=== PATIENT | male | born 1940 | race American Indian/Alaskan Native ===

== ENCOUNTER 2016-12-08 08:39 | Day surgery (SDC) | payer MEDICARE, OTHER ==
[2016-11-29 06:57] VITALS: BMI 21.2
[2016-12-08 09:18] VITALS: O2SAT 100
[2016-12-08] MEDS ORDERED: Propofol 10 mg/ml Inj (20 ML) ONE (11:36)
[2016-12-08] MEDS ORDERED: Midazolam 2 MG/2 ML VIAL ONE (11:36)
[2016-12-08] MEDS ORDERED: Sodium Chloride 0.9% 1,000 ML IV SCH (12:45)
[2016-12-08 13:54] VITALS: BP 176/91; PULSE 62; RESP 18; TEMP 97.5
== END 2016-12-08 14:25 | disposition home or self-care (01) ==
LOC: ENDO 08:39
PROVIDERS: ATTEND Internal Medicine Gastroenterology
DX: K29.50 Unspecified chronic gastritis without bleeding (principal); D64.9 Anemia, unspecified; R63.4 Abnormal weight loss
CPT/HCPCS: 43239; 82948; 88305; 88312; 88342; J2250; J2704; J7040 ×2

== ENCOUNTER 2017-02-16 08:12 | Inpatient (IN) | payer MEDICARE, OTHER ==
--- NOTE | 2017-02-16 08:30 | ED PDOC ---
Arrival/HPI <Sharron Gong - Last Filed: 02/16/17 10:24> <Isaiah Castelan - Last Filed: 02/16/17 18:35> - General Chief Complaint: High Blood Sugar Time Seen by Provider: 02/16/17 08:25 - History of Present Illness Narrative History of Present Illness (Text): 02/16/17 08:50 76 y/o M w/ PMHx of IDDM, HTN, HLD, GERD, and EtOH abuse presents to the ED for high blood glucose. Pt reports visiting his PMD yesterday for worsening generalized weakness. Pt has been chronically fatigued due to XRT for prostate Ca; reports last dose was last week. PMD performed accucheck in office x2, both were unreadable. PMD called this AM to report BG was 711 and instruct pt to come to the ED for evaluation. Pt admits to missing some doses of Metformin and not taking it this AM. Pt reports mild polydipsia, polyuria, and nocturia. Pt denies F/C, N/V, D/C. (Sharron Gong) Past Medical History - Provider Review Nursing Documentation Reviewed: Yes - Infectious Disease Hx of Infectious Diseases: None - Cardiac Hx Hypertension: Yes - Pulmonary Hx Respiratory Disorders: No - Neurological Hx Paralysis: No - HEENT Hx HEENT Disorder: Yes (eyeglasses) - Renal Other/Comment: kidney insuff - Endocrine/Metabolic Hx Diabetes Mellitus Type 2: Yes - Hematological/Oncological Hx Blood Transfusions: No - Integumentary Hx Dermatological Disorder: No - Musculoskeletal/Rheumatological Hx Musculoskeletal Disorders: No - Gastrointestinal Hx Gastrointestinal Disorders: Yes - Genitourinary/Gynecological Hx Genitourinary Disorders: No Hx Reproductive Disorders: No - Psychiatric Hx Emotional Abuse: No Hx Physical Abuse: No Hx Substance Use: No - Surgical History Other/Comment: hernia - Anesthesia Hx Anesthesia Reactions: No Hx Malignant Hyperthermia: No - Suicidal Assessment Feels Threatened In Home Enviroment: No <Sharron Gong - Last Filed: 02/16/17 10:24> Family/Social History - Physician Review Nursing Documentation Reviewed: Yes Family/Social History: No Known Family HX Smoking Status: Former Smoker Hx Alcohol Use: Yes (ETOH;"NOT LATELY") Hx Substance Use: No <Sharron Gong - Last Filed: 02/16/17 10:24> Allergies/Home Meds <Sharron Gong - Last Filed: 02/16/17 10:24> <Isaiah Csatelan - Last Filed: 02/16/17 18:35> Allergies/Adverse Reactions: Allergies No Known Allergies Allergy (Verified 08/21/16 04:16) Home Medications: Home Meds Medication Instructions Recorded Confirmed Gabapentin [Neurontin] 300 mg PO HS 02/16/17 02/16/17 Review of Systems - Physician Review All systems were reviewed & negative as marked: Yes - Review of Systems Constitutional: absent: Fevers Cardiovascular: absent: Edema <Sharron Gong - Last Filed: 02/16/17 10:24> Physical Exam Vital Signs Reviewed: Yes Temperature: Afebrile Blood Pressure: Normal Pulse: Regular Respiratory Rate: Normal Appearance: Positive for: Non-Toxic, Comfortable Pain Distress: None Mental Status: Positive for: Alert and Oriented X 3 - Systems Exam Head: Present: Atraumatic, Normocephalic Pupils: Present: PERRL Extroacular Muscles: Present: EOMI Conjunctiva: Present: Normal Mouth: Present: Moist Mucous Membranes Respiratory/Chest: Present: Clear to Auscultation, Good Air Exchange. No: Respiratory Distress, Accessory Muscle Use Cardiovascular: Present: Regular Rate and Rhythm, Normal S1, S2. No: Murmurs Abdomen: Present: Tenderness (epigastric TTP), Distention (mild), Normal Bowel Sounds. No: Peritoneal Signs Upper Extremity: Present: Normal Inspection Lower Extremity: Present: Normal Inspection. No: Edema Neurological: Present: GCS=15, Speech Normal Skin: Present: Warm, Dry, Normal Color Psychiatric: Present: Alert, Oriented x 3, Normal Insight, Normal Concentration <Sharron Gogn - Last Filed: 02/16/17 10:24> Medical Decision Making - Critical Care Critical Care Minutes: 45 minutes - Lab Interpretations I have reviewed the lab results: Yes Interpretation: Abnormal lab values - RAD Interpretation Part Time Flexible Clerk: Radiologist (CXR: no active disease) - EKG Interpretation Interpreted by ED Physician: Yes (NSR, rate 74, no ST changes) Type: 12 lead EKG <Sharron Gong - Last Filed: 02/16/17 10:24> - Lab Interpretations I have reviewed the lab results: Yes <Isaiah Castelan - Last Filed: 02/16/17 18:35> ED Course and Treatment: 02/16/17 09:07 76 y/o M w/ hyperglycemia - Labs - EKG - CT A/P - reassess and dispo 02/16/17 10:20 BG ~880. Insulin drip started. Pt away at CAT scan. Pt admitted to ICU for Hyperglycemic non-ketoacidosis. (Sharron Gong) Patient seen and examined with resident. Came up with treatment and disposition plan with resident. The patient is a 76 year old male who comes into the emergency department for a high blood glucose level. Additional HPI details as noted by the resident. On physical examination the patient abdomen is mildly distended and tender to palpation at the epigatric region. EKG, Abdomen/Pelvis CT, Labs, and Urinalysis ordered. Patient given IV Fluids and Humulin R. pt with hyperosmolar, non ketoic hyperglyecmia. accepted by dr minor and dr delgado. 02/16/17 16:59 (Isaiah Castelan) - Lab Interpretations Lab Results: 02/16/17 08:40 02/16/17 08:40 Lab Results 02/16/17 10:18: Serum Osmolality 321 H 02/16/17 09:27: Urine Osmolality 475 02/16/17 09:21: Lactate Dehydrogenase 411, Total Creatine Kinase 69, Troponin I < 0.01 02/16/17 08:40: pO2 46, VBG pH 7.17 L*, VBG pCO2 60.0, VBG HCO3 21.9, VBG Total CO2 23.7, VBG O2 Sat (Calc) 81.3 H, VBG Base Excess -7.4 L, VBG Potassium 4.7, Sodium 122.0 L, Chloride 87.0 L, Glucose > 750 H*, Lactate 1.3, FiO2 21.0, Venous Blood Potassium 4.7 02/16/17 08:40: Sodium 119 L*, Chloride 88 L, Potassium 4.6, Carbon Dioxide 21, Anion Gap 15, BUN 48 H, Creatinine 2.2 H, Est GFR ( Amer) 36, Est GFR ( Non-Af Amer) 29, Random Glucose 895 H* D, Calcium 9.1, Total Bilirubin 0.6, AST 65 H, ALT 62 H, Alkaline Phosphatase 100, Total Protein 7.4, Albumin 4.5, Globulin 2.9, Albumin/Globulin Ratio 1.6 02/16/17 08:40: Urine Color Yellow, Urine Appearance Clear, Urine pH 5.5, Ur Specific [place] 1.010, Urine Protein Negative, Urine Glucose (UA) >=1000, Urine Ketones Negative, Urine Blood Trace-intact H, Urine Nitrate Negative, Urine Bilirubin Negative, Urine Urobilinogen 0.2, Ur Leukocyte Esterase Negative , Urine RBC Negative, Urine WBC Negative 02/16/17 08:40: WBC 3.8 L D, RBC 4.15, Hgb 12.8 L, Hct 36.4 L, MCV 87.7, MCH 30.8, MCHC 35.2, RDW 11.8, Plt Count 163, MPV 12.2 H, Gran % 73.2 H, Lymph % ( Auto) 16.1 L, Ida % (Auto) 8.1 H, Eos % (Auto) 2.1, Baso % (Auto) 0.5, Gran # 2.81, Lymph # 0.6 L, Ida # 0.3, Eos # 0.1, Baso # 0.02 02/16/17 08:40: Hemoglobin A1c 13.6 H - RAD Interpretation Radiology Orders: 02/16/17 08:59 CHEST PORTABLE [RAD] Stat 02/16/17 09:25 ABD & PELVIS W/O PO OR IV CONT [CT] Stat - Medication Orders Current Medication Orders: Amlodipine Besylate (Norvasc) 10 mg PO DAILY NAMRATA Dextrose (Dextrose 50% Inj) 0 ml IV STAT PRN; Protocol PRN Reason: Hypoglycemia Protocol Gabapentin (Neurontin) 300 mg PO HS NAMRATA PRN Reason: Protocol Potassium Phosphate 15 mmole/ (Sodium Chloride) 255 mls @ 42.5 mls/hr IVPB ONCE ONE Stop: 02/16/17 20:14 Last Admin: 02/16/17 15:36 Dose: 42.5 mls/hr Dextrose/Sodium Chloride (Dextrose 5%/0.9% Ns 1000 Ml) 1,000 mls @ 250 mls/hr IV .Q4H NAMRATA Metoprolol Succinate (Toprol Xl) 25 mg PO DAILY NAMRATA Morphine Sulfate (Morphine) 1 mg IM Q4H PRN PRN Reason: Pain, moderate (4-7) Discontinued Medications Dextrose (Dextrose 50% Inj) Confirm Administered Dose 50 ml .ROUTE .STK-MED ONE Stop: 02/16/17 13:16 Last Admin: 02/16/17 13:14 Dose: 50 ml Dextrose (Dextrose 50% Inj) 50 ml IVP STAT STA Stop: 02/16/17 13:25 Sodium Chloride (Sodium Chloride 0.9%) 1,000 mls @ 999 mls/hr IV .Q1H1M STA Stop: 02/16/17 10:01 Last Admin: 02/16/17 09:04 Dose: 999 mls/hr Insulin Human Regular 100 (units/ Sodium Chloride) 100 mls @ 6 mls/hr IV .[id number] PRN; Protocol; 6 UNITS/HR PRN Reason: TITRATE PER MD ORDER Last Titration: 02/16/17 13:25 Dose: 0 units/hr, 0 mls/hr Sodium Chloride (Sodium Chloride 0.9%) 1,000 mls @ 999 mls/hr IV .Q1H1M STA Stop: 02/16/17 11:17 Last Admin: 02/16/17 11:45 Dose: 999 mls/hr Dextrose/Sodium Chloride (Dextrose 5%/0.9% Ns 1000 Ml) 1,000 mls @ 150 mls/hr IV .Q6H40M [facility] Last Admin: 02/16/17 13:30 Dose: 150 mls/hr Potassium Chloride (Potassium Chloride 10 Meq/100 Ml) 10 meq in 100 mls @ 100 mls/hr IVPB Q2H NAMRATA Stop: 02/16/17 14:59 Last Admin: 02/16/17 15:37 Dose: 100 mls/hr Insulin Detemir (Levemir) 10 unit SC STAT STA Stop: 02/16/17 15:09 Last Admin: 02/16/17 15:55 Dose: 10 unit Pneumococcal Polyvalent Vaccine (Pneumovax 23 Vaccine) 0.5 ml IM .ONCE ONE Stop: 02/16/17 16:31 <Sharron Gong - Last Filed: 02/16/17 10:24> - PA / COATING MACHINE OPERATOR HELPER / Resident Statement / has reviewed & agrees with the documentation as recorded. / has examined the patient and agrees with the treatment plan. - Scribe Statement The provider has reviewed the documentation as recorded by the Scribe <Isaiah Castelan - Last Filed: 02/16/17 18:35> - Scribe Statement Larry Swanson Provider Scribe Attestation: All medical record entries made by the Scribe were at my direction and personally dictated by me. I have reviewed the chart and agree that the record accurately reflects my personal performance of the history, physical exam, medical decision making, and the department course for this patient. I have also personally directed, reviewed, and agree with the discharge instructions and disposition. (Isaiah Castelan) Disposition/Present on Arrival - Present on Arrival Any Indicators Present on Arrival: No History of DVT/PE: No History of Uncontrolled Diabetes: No Urinary Catheter: No History of Decub. Ulcer: No History Surgical Site Infection Following: None - Disposition Have Diagnosis and Disposition been Completed?: Yes Disposition Time: 10:23 Patient Plan: ICU <Sharron Gong - Last Filed: 02/16/17 10:24> <Isaiah Castelan - Last Filed: 02/16/17 18:35> - Disposition Diagnosis: Hyperglycemic hyperosmolar nonketotic coma Disposition: HOSPITALIZED Patient Problems: Current Active Problems Problem Status Onset Hyperglycemic hyperosmolar nonketotic coma Acute Condition: FAIR
[2017-02-16 08:35] VITALS: BMI 21.5
[2017-02-16 08:57] LABS: PH,URINE 5.5 (4.7-8.0); URINE BILIRUBIN NEGATIVE (NEGATIVE); URINE BLOOD TRACE-INTACT (NEGATIVE); URINE GLUCOSE (UA) >=1000 mg/dL (NEGATIVE); URINE KETONE NEGATIVE (NEGATIVE); URINE LEUKOCYTE ESTERASE NEGATIVE Leu/uL (NEGATIVE); URINE PROTEIN NEGATIVE mg/dL (<30 mg/dL); URINE UROBILINOGEN 0.2 E.U./dL (<1 E.U./dL); VENOUS BLOOD GAS BASE EXCESS -7.4 mmol/L (0.0-2.0)
[2017-02-16 08:59] LABS: URINE APPEARANCE CLEAR (CLEAR); URINE COLOR YELLOW (YELLOW)
[2017-02-16 09:00] LABS: VENOUS BLOOD PH 7.17 (7.32-7.43)
[2017-02-16] MEDS ORDERED: Sodium Chloride 0.9% 1,000 ML IV STA ×3 (09:01→19:28)
[2017-02-16 09:08] LABS: ALB/GLOB RATIO 1.6 (1.1-1.8); BILIRUBIN,TOTAL 0.6 mg/dL (0.2-1.3); CALCIUM 9.1 mg/dL (8.4-10.5); POTASSIUM 4.6 mmol/L (3.6-5.0); TOTAL PROTEIN 7.4 g/dL (5.8-8.3)
[2017-02-16] MEDS ORDERED: Insulin Regular 100 UNITS in Sodium Chloride 0.9% 99 ML IV PRN ×2 (09:24→18:46)
[2017-02-16 09:37] LABS: GRAN % 73.2 % (50.0-68.0); HEMATOCRIT 36.4 % (42.0-52.0); MEAN CELL VOLUME 87.7 fL (80.0-105.0); MEAN CORPUSCULAR HEMOGLOBIN 30.8 pg (25.0-35.0); MEAN CORPUSCULAR HGB CONC 35.2 g/dl (31.0-37.0); MEAN PLATELET VOLUME 12.2 fl (7.0-11.0); PLATELET COUNT 163 10^3/uL (120.0-450.0); RED CELL DISTRIBUTION WIDTH 11.8 % (11.5-14.5); WHITE BLOOD COUNT 3.8 10^3/ul (4.5-11.0)
[2017-02-16 09:38] LABS: ADD MANUAL DIFF? NO; BASO # 0.02 K/mm3 (0.0-2.0); BASO % 0.5 % (0.0-3.0); EOS # 0.1 (0.0-0.7); EOS % 2.1 % (1.5-5.0); GRAN # 2.81 (1.4-6.5); LYMPH # 0.6 (1.2-3.4); LYMPH % 16.1 % (22.0-35.0); MONO # 0.3 (0.1-0.6); MONO % 8.1 % (1.0-6.0)
[2017-02-16 09:45] LABS: URINE RBC NEGATIVE /hpf (0-2); URINE WBC NEGATIVE /hpf (0-6)
--- NOTE | 2017-02-16 09:47 | RAD ---
HISTORY: weakness COMPARISON: 08/13/2016 FINDINGS: LUNGS: No active pulmonary disease. PLEURA: No significant pleural effusion identified, no pneumothorax apparent. CARDIOVASCULAR: Normal. OSSEOUS STRUCTURES: No significant abnormalities. VISUALIZED UPPER ABDOMEN: Normal. OTHER FINDINGS: None. IMPRESSION: No active disease.
[2017-02-16 09:48] LABS: TROPONIN I < 0.01 ng/mL
[2017-02-16 10:35] LABS: ARTERIAL BLOOD GAS PH 7.27 (7.35-7.45)
--- NOTE | 2017-02-16 11:21 | CP.PCM.CON ---
<Anaya ePna - Last Filed: 02/16/17 15:07> History of Present Illness - History of Present Illness History of Present Illness: PGY-[address] Jackson ICU consult: [facility] ICU consult: Hyperglycemic non-ketoacidosis 75M with PMH Prostate Cancer on XRT (last dose last week), alcohol abuse (last drink 1 shot last week), IDDM-2, HTN/HLD, Hx falls, comes in for generalized weakness. PMD checked pt's sugar on ACCU check, unreadable. PMD called pt this AM to report BG 711 and sent pt to ED. Pt skipped metformin and not taking this AM. On physical examination the patient abdomen is mildly distended and tender to palpation at the epigatric region. (+) polydipsia, polyuria. (+) BM this AM Denies F/C, N/V, D/C, dysuria WBC 3.8 Hb 12.8 Hct 36 Na 119, K 4.6, Cl 88, bun 48/2.2 (baseline 1.3) AST/ALT mildly elevated trops negative x 1 BG ~880. EKG: NSR, rate 74, no ST changes CXR: no active disease Abdomen/Pelvis CT: No acute abdomen issue. 6cm L hemorrhagic renal cyst Patient given 2L NS bolus in the ED. Insulin drip Humulin R started in ED. His sugar was in 70s in ED, 1 amp of D50 was given. PMH: Alcohol abuse HTN NIDDM x 6 years Renal cyst, 6cm, L Medication non-compliance PSH: R inguinal repair FH: DM, breast ca, prostate cancer SH: lives with ; retired truck drivers Pt. has a 50+ year of drinking alcohol and will drink as much as a pint a day. Tob: stopped in 1995 Drugs: denies All: NKDA Meds: Metoprolol ER 25 Simvastatin 20 amlodipine 10 Metformin 500 bid Gabapentin PMD: Dr. Rivas Heme/Onc: Dr. Sesay/Janette Urologist: Dr. Wood Past Patient History - Infectious Disease Hx of Infectious Diseases: None - Past Medical History & Family History Past Medical History?: Yes - Past Social History Smoking Status: Former Smoker - CARDIAC Hx Hypertension: Yes - PULMONARY Hx Respiratory Disorders: No - NEUROLOGICAL Hx Paralysis: No - HEENT Hx HEENT Problems: Yes (eyeglasses) - RENAL Other/Comment: kidney insuff - ENDOCRINE/METABOLIC Hx Diabetes Mellitus Type 2: Yes - HEMATOLOGICAL/ONCOLOGICAL Hx Blood Transfusions: No - INTEGUMENTARY Hx Dermatological Problems: No - MUSCULOSKELETAL/RHEUMATOLOGICAL Hx Musculoskeletal Disorders: No - GASTROINTESTINAL Hx Gastrointestinal Disorders: Yes - GENITOURINARY/GYNECOLOGICAL Hx Genitourinary Disorders: No Hx Reproductive Disorders: No - PSYCHIATRIC Hx Emotional Abuse: No Hx Physical Abuse: No Hx Substance Use: No - SURGICAL HISTORY Other/Comment: hernia - ANESTHESIA Hx Anesthesia Reactions: No Hx Malignant Hyperthermia: No Meds Allergies/Adverse Reactions: Allergies Allergy/AdvReac Type Severity Reaction Status Date / Time No Known Allergies Allergy Verified 08/21/16 04:16 - Medications Medications: Current Medications Insulin Human Regular 100 (units/ Sodium Chloride) 100 mls @ 6 mls/hr IV .[id number] PRN; Protocol; 6 UNITS/HR PRN Reason: TITRATE PER MD ORDER Last Admin: 02/16/17 09:43 Dose: 6 mls/hr Physical Exam - Constitutional Appears: No Acute Distress - Head Exam Head Exam: ATRAUMATIC, NORMAL INSPECTION, NORMOCEPHALIC - Eye Exam Eye Exam: EOMI, Normal appearance, PERRL Pupil Exam: NORMAL ACCOMODATION - ENT Exam ENT Exam: Mucous Membranes Dry - Neck Exam Neck exam: Negative for: Meningismus - Respiratory Exam Respiratory Exam: Clear to Auscultation Bilateral. absent: Rales, Rhonchi, Wheezes - Cardiovascular Exam Cardiovascular Exam: +S1, +S2. absent: Systolic Murmur - GI/Abdominal Exam GI & Abdominal Exam: Normal Bowel Sounds, Soft, Tenderness (On deep palpation, tenderness on RUQ, RLQ). absent: Distended, Firm, Guarding - Extremities Exam Extremities exam: Positive for: normal capillary refill, pedal pulses present. Negative for: calf tenderness, tenderness - Back Exam Back exam: absent: CVA tenderness (L), CVA tenderness (R) - Neurological Exam Neurological exam: Alert, CN II-XII Intact, Oriented x3 - Psychiatric Exam Psychiatric exam: Normal Affect, Normal Mood - Skin Skin Exam: Dry, Warm Results - Vital Signs Recent Vital Signs: Last Vital Signs Temp 97.9 F 02/16/17 08:13 Pulse 82 02/16/17 10:33 Resp 16 02/16/17 10:33 BP 133/72 02/16/17 10:33 Pulse Ox 99 02/16/17 10:33 - Labs Result Diagrams: 02/16/17 08:40 02/16/17 12:35 Labs: Laboratory Results - last 24 hr 02/16/17 10:29 pCO2 37 pO2 102.0 H HCO3 17.0 L ABG pH 7.27 L ABG Total CO2 18.1 L ABG O2 Saturation 98.9 H ABG Base Excess -9.2 L ABG Potassium 3.2 L Sodium 131.0 L Chloride 102.0 Glucose 552 H* D Lactate 2.1 FiO2 21.0 Arterial Blood Potassium 3.2 L Assessment & Plan - Assessment and Plan (Free Text) Plan: 75 M admitted to ICU for HHS progressing to DKA requiring insulin gtt. ct showed possible hemorrhagic cyst in L kidney. DELFINO likely prerenal from dehydration more than intrsinc or post-renal from prostate cancer or renal cyst. Metabolic acidosis with gap on ABG need to r/o other ingestion. Hyponatremia corrected to be Neuro No active issue Cardio Trending cardiac enzyme Pulm No active issue GI HHD carb consist DELFINO Strict i/o ct: possible hemorrhagic cyst in kidney Consider renal consult Endo Metabolic acidosis with elevated osmolar gap at 16. Anion Gap closed. BMP, Mg q 4 Accu q1 Heme likely chronic macrocytic/nomocytic anemia. Work up per primary. Infectious lactate NOT elevated 1.3 --> 2.1 WBC < 4 likely sirs response from HHS/DKA Prophylasix SCD, given hemorrhagic cyst S/R/D/w Dr. Jackson - Date & Time Date: 02/16/17 Time: 14:07 <Manuel SUN,Meng H - Last Filed: 02/16/17 16:59> Meds - Medications Medications: Current Medications Dextrose (Dextrose 50% Inj) 0 ml IV STAT PRN; Protocol PRN Reason: Hypoglycemia Protocol Insulin Human Regular 100 (units/ Sodium Chloride) 100 mls @ 6 mls/hr IV .[id number] PRN; Protocol; 6 UNITS/HR PRN Reason: TITRATE PER MD ORDER Last Titration: 02/16/17 13:25 Dose: 0 units/hr, 0 mls/hr Dextrose/Sodium Chloride (Dextrose 5%/0.9% Ns 1000 Ml) 1,000 mls @ 150 mls/hr IV .Q6H40M NAMRATA Last Admin: 02/16/17 13:30 Dose: 150 mls/hr Potassium Phosphate 15 mmole/ (Sodium Chloride) 255 mls @ 42.5 mls/hr IVPB ONCE ONE Stop: 02/16/17 20:14 Last Admin: 02/16/17 15:36 Dose: 42.5 mls/hr Results - Vital Signs Recent Vital Signs: Last Vital Signs Temp 97.1 F L 02/16/17 16:20 Pulse 65 02/16/17 16:20 Resp 17 02/16/17 16:20 BP 131/71 02/16/17 16:20 Pulse Ox 100 02/16/17 16:00 - Labs Result Diagrams: 02/16/17 08:40 02/16/17 15:00 Labs: Laboratory Results - last 24 hr 02/16/17 02/16/17 02/16/17 10:29 11:49 12:19 pCO2 37 pO2 102.0 H HCO3 17.0 L ABG pH 7.27 L ABG Total CO2 18.1 L ABG O2 Saturation 98.9 H ABG Base Excess -9.2 L ABG Potassium 3.2 L VBG pH VBG pCO2 VBG HCO3 VBG Total CO2 VBG O2 Sat (Calc) VBG Base Excess VBG Potassium Sodium 131.0 L Chloride 102.0 Glucose 552 H* D Lactate 2.1 FiO2 21.0 Potassium Carbon Dioxide Anion Gap BUN Creatinine Est GFR ( Amer) Est GFR (Non-Af Amer) POC Glucose (mg/dL) 236 H 316 H Random Glucose Calcium Phosphorus Magnesium Lactate Dehydrogenase Total Creatine Kinase Troponin I Arterial Blood Potassium 3.2 L Venous Blood Potassium Salicylates Urine Opiates Screen Urine Methadone Screen Ur Barbiturates Screen Ur Phencyclidine Scrn Ur Amphetamines Screen U Benzodiazepines Scrn U Oth Cocaine Metabols U Cannabinoids Screen Alcohol, Quantitative 02/16/17 02/16/17 02/16/17 12:35 12:35 12:35 pCO2 pO2 HCO3 ABG pH ABG Total CO2 ABG O2 Saturation ABG Base Excess ABG Potassium VBG pH VBG pCO2 VBG HCO3 VBG Total CO2 VBG O2 Sat (Calc) VBG Base Excess VBG Potassium Sodium 138 Chloride 105 Glucose Lactate FiO2 Potassium 3.4 L Carbon Dioxide 21 Anion Gap 15 BUN 43 H Creatinine 2.0 H Est GFR ( Amer) 40 Est GFR (Non-Af Amer) 33 POC Glucose (mg/dL) Random Glucose 58 L Calcium 9.5 Phosphorus 1.9 L Magnesium 2.5 H Lactate Dehydrogenase Total Creatine Kinase Troponin I Arterial Blood Potassium Venous Blood Potassium Salicylates < 1 L Urine Opiates Screen Urine Methadone Screen Ur Barbiturates Screen Ur Phencyclidine Scrn Ur Amphetamines Screen U Benzodiazepines Scrn U Oth Cocaine Metabols U Cannabinoids Screen Alcohol, Quantitative < 10 02/16/17 02/16/17 02/16/17 12:35 13:01 13:15 pCO2 pO2 HCO3 ABG pH ABG Total CO2 ABG O2 Saturation ABG Base Excess ABG Potassium VBG pH VBG pCO2 VBG HCO3 VBG Total CO2 VBG O2 Sat (Calc) VBG Base Excess VBG Potassium Sodium Chloride Glucose Lactate FiO2 Potassium Carbon Dioxide Anion Gap BUN Creatinine Est GFR ( Amer) Est GFR (Non-Af Amer) POC Glucose (mg/dL) 114 H 75 Random Glucose Calcium Phosphorus Magnesium Lactate Dehydrogenase Total Creatine Kinase Troponin I Arterial Blood Potassium Venous Blood Potassium Salicylates Urine Opiates Screen Negative Urine Methadone Screen Negative Ur Barbiturates Screen Negative Ur Phencyclidine Scrn Negative Ur Amphetamines Screen Negative U Benzodiazepines Scrn Negative U Oth Cocaine Metabols Negative U Cannabinoids Screen Negative Alcohol, Quantitative 02/16/17 02/16/17 02/16/17 13:41 15:00 15:00 pCO2 pO2 23 L HCO3 ABG pH ABG Total CO2 ABG O2 Saturation ABG Base Excess ABG Potassium VBG pH 7.19 L* VBG pCO2 56.0 VBG HCO3 21.4 VBG Total CO2 23.1 VBG O2 Sat (Calc) 46.5 VBG Base Excess -7.2 L VBG Potassium 3.5 L Sodium 137 136.0 Chloride 105 107.0 Glucose 48 L Lactate 3.1 H FiO2 21.0 Potassium 3.6 Carbon Dioxide 21 Anion Gap 15 BUN 41 H Creatinine 1.8 H Est GFR ( Amer) 45 Est GFR (Non-Af Amer) 37 POC Glucose (mg/dL) 222 H Random Glucose 52 L Calcium 9.3 Phosphorus Magnesium Lactate Dehydrogenase 351 Total Creatine Kinase 77 Troponin I < 0.01 Arterial Blood Potassium Venous Blood Potassium 3.5 L Salicylates Urine Opiates Screen Urine Methadone Screen Ur Barbiturates Screen Ur Phencyclidine Scrn Ur Amphetamines Screen U Benzodiazepines Scrn U Oth Cocaine Metabols U Cannabinoids Screen Alcohol, Quantitative 02/16/17 15:02 pCO2 pO2 HCO3 ABG pH ABG Total CO2 ABG O2 Saturation ABG Base Excess ABG Potassium VBG pH VBG pCO2 VBG HCO3 VBG Total CO2 VBG O2 Sat (Calc) VBG Base Excess VBG Potassium Sodium Chloride Glucose Lactate FiO2 Potassium Carbon Dioxide Anion Gap BUN Creatinine Est GFR ( Amer) Est GFR (Non-Af Amer) POC Glucose (mg/dL) 141 H Random Glucose Calcium Phosphorus Magnesium Lactate Dehydrogenase Total Creatine Kinase Troponin I Arterial Blood Potassium Venous Blood Potassium Salicylates Urine Opiates Screen Urine Methadone Screen Ur Barbiturates Screen Ur Phencyclidine Scrn Ur Amphetamines Screen U Benzodiazepines Scrn U Oth Cocaine Metabols U Cannabinoids Screen Alcohol, Quantitative Attending/Attestation - Attestation I have personally seen and examined this patient.: Yes I have fully participated in the care of the patient.: Yes I have reviewed all pertinent clinical information: Yes Notes (Text): 02/16/17 16:56 76 y/o M w/ un controlled DM Pt is un aware of how to take his medication and the appropriate dose. He has not been taking his medication in the past month an drecently had symptoms of frequent urination and thirst along with lethargy. Found to have DKA/ HHNK and started on Insuling drip w/ 3 L IV normal saline given. Currently aao x 3. No other infectious or cardiac complaints. Will need diabetic teaching and HGB AIC to determine insuling SQ needs. Currently will change IV fluids to D% NS at 250 bs. Then add Levemir 10 to start w/ Insulin sliding scale with diabetic meals. Overlap Insulin drip w/ Levemir. Q1 hrs BS and Q4 BMP. Replete K, Phos. ENdocrine consult needed. DVT p PPi cc time 65 min
--- NOTE | 2017-02-16 12:22 | CT ---
PROCEDURE: CT Abdomen and Pelvis without intravenous contrast HISTORY: abd pain, distention COMPARISON: 08/15/2016 CT TECHNIQUE: Without oral or IV contrast. Contrast Dose: Radiation dose: Total exam DLP = 308 mGy-cm. This CT exam was performed using one or more of the following dose reduction techniques: Automated exposure control, adjustment of the mA and/or kV according to patient size, and/or use of iterative reconstruction technique. FINDINGS: LOWER THORAX: Unremarkable. LIVER: Unremarkable. No gross lesion or ductal dilatation. GALLBLADDER AND BILE DUCTS: Unremarkable. PANCREAS: Calcifications are seen in the pancreas as well as atrophy consistent with chronic pancreatitis SPLEEN: Unremarkable. ADRENALS: Unremarkable. No mass. KIDNEYS AND URETERS: There is a hyper dense mass in the left kidney that probably represents a hemorrhagic cyst. This measures 3 cm in with by 2 cm height by 1.6 cm AP. Previously there was a fluid density cyst this location. Follow-up is recommended either repeat CT or ultrasound in 3-6 months. VASCULATURE: Unremarkable. No aortic aneurysm. BOWEL: Unremarkable. No obstruction. No gross mural thickening. APPENDIX: Unremarkable. Normal appendix. PERITONEUM: Unremarkable. No free fluid. No free air. LYMPH NODES: Unremarkable. No enlarged lymph nodes. BLADDER: Unremarkable. REPRODUCTIVE: Unremarkable. BONES: No acute fracture. OTHER FINDINGS: None. IMPRESSION: No acute intra-abdominal findings. Probable hemorrhagic cyst in the left kidney. See comments
[2017-02-16 12:58] LABS: CALCIUM 9.5 mg/dL (8.4-10.5); MAGNESIUM 2.5 mg/dL (1.7-2.2); PHOSPHOROUS 1.9 mg/dL (2.5-4.5); POTASSIUM 3.4 mmol/L (3.6-5.0)
[2017-02-16] MEDS ORDERED: Dextrose 50% SYRINGE Inj (50 ml) ONE (13:15)
[2017-02-16] MEDS ORDERED: Dextrose 5%/0.45% NS 1,000 ML IV SCH (13:15)
[2017-02-16] MEDS ORDERED: Dextrose 50% SYRINGE Inj (50 ml) IV PRN (13:24)
[2017-02-16] MEDS ORDERED: Dextrose 50% SYRINGE Inj (50 ml) IVP STA (13:24)
[2017-02-16] MEDS ORDERED: Dextrose 5%/0.9% NS 1,000 ML IV SCH ×2 (13:30→17:29)
[2017-02-16] MEDS ORDERED: Potassium Phosphate 3 mmol/ml Inj IV ONE (14:00)
[2017-02-16] MEDS ORDERED: Potassium Phosphate 15 MMOLE in Sodium Chloride 0.9% 250 ML IVPB ONE (14:15)
[2017-02-16] MEDS ORDERED: Insulin Detemir 100 units/ml Vial (Levemir) SC STA (15:08)
[2017-02-16 15:21] LABS: VENOUS BLOOD GAS BASE EXCESS -7.2 mmol/L (0.0-2.0)
[2017-02-16 15:27] LABS: VENOUS BLOOD PH 7.19 (7.32-7.43)
[2017-02-16 15:35] LABS: BLOOD UREA NITROGEN 41 mg/dL (7-21); CALCIUM 9.3 mg/dL (8.4-10.5); CARBON DIOXIDE 21 mmol/L (21-33); CHLORIDE 105 mmol/L (98-107); GFR AFRICAN-AMERICAN 45; GLUCOSE,RANDOM 52 mg/dL (70-110); POTASSIUM 3.6 mmol/L (3.6-5.0); SODIUM 137 mmol/L (132-148)
[2017-02-16 15:56] LABS: TROPONIN I < 0.01 ng/mL
[2017-02-16] MEDS ORDERED: Pneumococcal 23-Valent Vaccine IM ONE (16:30)
[2017-02-16] MEDS ORDERED: Potassium Chloride 40 mEq/30 ml LIQ UD PO ONE (18:52)
[2017-02-16] MEDS ORDERED: Sodium Chloride 0.9% 1,000 ML IV SCH (19:30)
[2017-02-16 20:02] LABS: VENOUS BLOOD GAS BASE EXCESS -7.1 mmol/L (0.0-2.0); VENOUS BLOOD PH 7.23 (7.32-7.43)
[2017-02-16] MEDS: Insulin Lispro (humaLOG) LOW Coverage SC SCH (20:10)
[2017-02-16 20:28] LABS: AMYLASE 210 U/L (35-125); BLOOD UREA NITROGEN 34 mg/dL (7-21); CALCIUM 8.3 mg/dL (8.4-10.5); CARBON DIOXIDE 19 mmol/L (21-33); CHLORIDE 105 mmol/L (98-107); GFR AFRICAN-AMERICAN 42; GLUCOSE,RANDOM 280 mg/dL (70-110); LIPASE 159 U/L (23-300); MAGNESIUM 2.1 mg/dL (1.7-2.2); POTASSIUM 4.6 mmol/L (3.6-5.0); SODIUM 134 mmol/L (132-148)
[2017-02-16] MEDS: Sodium Chloride 0.9% 1,000 ML IV SCH (20:28)
[2017-02-16 20:38] LABS: TROPONIN I < 0.01 ng/mL
[2017-02-16 23:48] LABS: VENOUS BLOOD GAS BASE EXCESS -7.2 mmol/L (0.0-2.0); VENOUS BLOOD PH 7.21 (7.32-7.43)
[2017-02-17] MEDS: Insulin Lispro (humaLOG) LOW Coverage SC SCH ×3 (00:18→08:36)
[2017-02-17 01:28] LABS: CALCIUM 8.3 mg/dL (8.4-10.5); POTASSIUM 4.8 mmol/L (3.6-5.0)
[2017-02-17] MEDS: Sodium Chloride 0.9% 1,000 ML IV SCH ×2 (02:00→21:38)
[2017-02-17 05:37] LABS: ADD MANUAL DIFF? NO
[2017-02-17 05:58] LABS: ALB/GLOB RATIO 1.1 (1.1-1.8); BILIRUBIN,TOTAL 0.5 mg/dL (0.2-1.3); CALCIUM 8.2 mg/dL (8.4-10.5); POTASSIUM 4.9 mmol/L (3.6-5.0); TOTAL PROTEIN 5.8 g/dL (5.8-8.3)
[2017-02-17 06:02] LABS: BASO # 0.01 K/mm3 (0.0-2.0); BASO % 0.2 % (0.0-3.0); EOS # 0.1 (0.0-0.7); EOS % 3.3 % (1.5-5.0); GRAN # 3.02 (1.4-6.5); GRAN % 71.3 % (50.0-68.0); HEMATOCRIT 32.2 % (42.0-52.0); LYMPH # 0.8 (1.2-3.4); LYMPH % 19.8 % (22.0-35.0); MEAN CELL VOLUME 86.8 fL (80.0-105.0); MEAN CORPUSCULAR HEMOGLOBIN 30.7 pg (25.0-35.0); MEAN CORPUSCULAR HGB CONC 35.4 g/dl (31.0-37.0); MEAN PLATELET VOLUME 11.1 fl (7.0-11.0); MONO # 0.2 (0.1-0.6); MONO % 5.4 % (1.0-6.0); PLATELET COUNT 143 10^3/uL (120.0-450.0); RED CELL DISTRIBUTION WIDTH 12.1 % (11.5-14.5); WHITE BLOOD COUNT 4.2 10^3/ul (4.5-11.0)
[2017-02-17] MEDS: Morphine 2 mg/ml ISec IM PRN (06:30)
--- NOTE | 2017-02-17 08:12 | CP.CCUPN ---
<Anaya Pena - Last Filed: 02/17/17 11:16> CCU Subjective - Physician Review Subjective (Free Text): 02/17/17 08:10 No acute distress overnight. Denies PRATT, CP, SOB. No BM. CCU Objective - Vital Signs / Intake & Output Intake and Output (Last 8hrs): Intake & Output 02/16/17 02/17/17 02/17/17 22:59 06:59 14:59 Intake Total 1650 4500 Output Total 350 2500 Balance 1300 2000 Weight 146 lb Intake: IV 1250 4000 Right Forearm 1250 4000 Oral 400 500 Output: Urine 350 2500 Urine, Voided 350 2500 Other: Voiding Method Urinal # Voids Urine, Voided 3 # Bowel Movements 1 - Physical Exam Head: Positive for: Atraumatic, Normocephalic Pupils: Positive for: PERRL Extroacular Muscles: Positive for: EOMI Conjunctiva: Positive for: Normal Mouth: Positive for: Moist Mucous Membranes Respiratory/Chest: Positive for: Clear to Auscultation, Good Air Exchange. Negative for: Respiratory Distress, Accessory Muscle Use Cardiovascular: Positive for: Regular Rate and Rhythm, Normal S1, S2. Negative for: Murmurs Abdomen: Positive for: Tenderness (epigastric TTP), Distention (mild), Normal Bowel Sounds. Negative for: Peritoneal Signs Upper Extremity: Positive for: Normal Inspection Lower Extremity: Positive for: Normal Inspection. Negative for: Edema Neurological: Positive for: GCS=15, Speech Normal Skin: Positive for: Warm, Dry, Normal Color Psychiatric: Positive for: Alert, Oriented x 3, Normal Insight, Normal Concentration - Medications Active Medications: Active Medications Generic Name Dose Route Start Last Admin Trade Name Javyq PRN Reason Stop Dose Admin Amlodipine Besylate 10 mg 02/17/17 10:00 Norvasc PO DAILY NAMRATA Dextrose 0 ml 02/16/17 13:24 Dextrose 50% Inj IV STAT PRN Hypoglycemia Protocol Protocol Gabapentin 300 mg 02/16/17 22:00 02/16/17 22:34 Neurontin PO 300 mg HS NAMRATA Administration Protocol Dextrose 1,000 mls @ 100 mls/hr 02/16/17 19:30 02/17/17 06:30 Dextrose 5% In Water 1000 Ml IV 100 mls/hr .Q10H NAMRATA Administration Sodium Chloride 1,000 mls @ 150 mls/hr 02/16/17 19:31 02/17/17 02:00 Sodium Chloride 0.9% IV 150 mls/hr .[id number] NAMRATA Administration Insulin Detemir 10 unit 02/17/17 22:00 Levemir SC HS [facility] Insulin Human Lispro 0 units 02/16/17 20:00 02/17/17 04:00 Humalog Low SC Not Given Q4 [facility] Protocol Metoprolol Succinate 25 mg 02/17/17 10:00 Toprol Xl PO DAILY [facility] Morphine Sulfate 1 mg 02/16/17 17:50 02/17/17 06:30 Morphine IM 1 mg Q4H PRN Administration Pain, moderate (4-7) - Patient Studies Lab Studies: Lab Studies 02/17/17 02/17/17 02/17/17 Range/Units 06:05 05:12 05:00 WBC 4.2 L (4.5-11.0) 10^3/ul RBC 3.71 (3.5-6.1) 10^6/uL Hgb 11.4 L (14.0-18.0) gm/dL Hct 32.2 L (42.0-52.0) % MCV 86.8 (80.0-105.0) fL MCH 30.7 (25.0-35.0) pg MCHC 35.4 (31.0-37.0) g/dl RDW 12.1 (11.5-14.5) % Plt Count 143 (120.0-450.0) 10^3/uL MPV 11.1 H (7.0-11.0) fl Gran % 71.3 H (50.0-68.0) % Lymph % (Auto) 19.8 L (22.0-35.0) % [facility] % (Auto) 5.4 (1.0-6.0) % Eos % (Auto) 3.3 (1.5-5.0) % Baso % (Auto) 0.2 (0.0-3.0) % Gran # 3.02 (1.4-6.5) Lymph # 0.8 L (1.2-3.4) [facility] # 0.2 (0.1-0.6) Eos # 0.1 (0.0-0.7) Baso # 0.01 (0.0-2.0) K/mm3 pCO2 (35-45) mm/Hg pO2 (80-100) mm/Hg HCO3 (21-28) mmol/L ABG pH (7.35-7.45) ABG Total CO2 (22-28) mmol.L ABG O2 Saturation (95-98) % ABG Base Excess (-2.0-3.0) mmol/L ABG Potassium (3.6-5.2) mmol/L VBG pH (7.32-7.43) VBG pCO2 (40-60) VBG HCO3 (21-28) mmol/l VBG Total CO2 (22-28) mmol.L VBG O2 Sat (Calc) (40-65) % VBG Base Excess (0.0-2.0) mmol/L VBG Potassium (3.6-5.2) mmol/L Sodium (132-148) mmol/L Chloride (98-107) mmol/L Glucose (75-110) mg/dl Lactate (0.7-2.1) mmol/L FiO2 % Potassium (3.6-5.0) mmol/L Carbon Dioxide (21-33) mmol/L Anion Gap (10-20) BUN (7-21) mg/dL Creatinine (0.5-1.4) mg/dL Est GFR ( Amer) Est GFR (Non-Af Amer) POC Glucose (mg/dL) 257 H 249 H (65-110) mg/dL Random Glucose (70-110) mg/dL Calcium (8.4-10.5) mg/dL Phosphorus (2.5-4.5) mg/dL Magnesium (1.7-2.2) mg/dL Total Bilirubin (0.2-1.3) mg/dL AST (15-59) U/L ALT (7-56) U/L Alkaline Phosphatase (38-133) U/L Lactate Dehydrogenase (333-699) U/L Total Creatine Kinase (35-230) U/L Troponin I ng/mL Total Protein (5.8-8.3) g/dL Albumin (3.0-4.8) g/dL Globulin gm/dL Albumin/Globulin Ratio (1.1-1.8) Amylase (35-125) U/L Lipase (23-300) U/L Arterial Blood Potassium (3.6-5.2) mmol/L Venous Blood Potassium (3.6-5.2) mmol/L Salicylates (2.0-20.0) mg/dL Urine Opiates Screen (NEGATIVE) Urine Methadone Screen (NEGATIVE) Ur Barbiturates Screen (NEGATIVE) Ur Phencyclidine Scrn (NEGATIVE) Ur Amphetamines Screen (NEGATIVE) U Benzodiazepines Scrn (NEGATIVE) U Oth Cocaine Metabols (NEGATIVE) U Cannabinoids Screen (NEGATIVE) Alcohol, Quantitative (0-10) mg/dL 02/17/17 02/17/17 02/17/17 Range/Units 05:00 04:15 03:09 WBC (4.5-11.0) 10^3/ul RBC (3.5-6.1) 10^6/uL Hgb (14.0-18.0) gm/dL Hct (42.0-52.0) % MCV (80.0-105.0) fL MCH (25.0-35.0) pg MCHC (31.0-37.0) g/dl RDW (11.5-14.5) % Plt Count (120.0-450.0) 10^3/uL MPV (7.0-11.0) fl Gran % (50.0-68.0) % Lymph % (Auto) (22.0-35.0) % [facility] % (Auto) (1.0-6.0) % Eos % (Auto) (1.5-5.0) % Baso % (Auto) (0.0-3.0) % Gran # (1.4-6.5) Lymph # (1.2-3.4) [facility] # (0.1-0.6) Eos # (0.0-0.7) Baso # (0.0-2.0) K/mm3 pCO2 (35-45) mm/Hg pO2 (80-100) mm/Hg HCO3 (21-28) mmol/L ABG pH (7.35-7.45) ABG Total CO2 (22-28) mmol.L ABG O2 Saturation (95-98) % ABG Base Excess (-2.0-3.0) mmol/L ABG Potassium (3.6-5.2) mmol/L VBG pH (7.32-7.43) VBG pCO2 (40-60) VBG HCO3 (21-28) mmol/l VBG Total CO2 (22-28) mmol.L VBG O2 Sat (Calc) (40-65) % VBG Base Excess (0.0-2.0) mmol/L VBG Potassium (3.6-5.2) mmol/L Sodium 136 (132-148) mmol/L Chloride 110 H (98-107) mmol/L Glucose (75-110) mg/dl Lactate (0.7-2.1) mmol/L FiO2 % Potassium 4.9 (3.6-5.0) mmol/L Carbon Dioxide 20 L (21-33) mmol/L Anion Gap 11 (10-20) BUN 25 H (7-21) mg/dL Creatinine 1.6 H (0.5-1.4) mg/dL Est GFR ( Amer) 51 Est GFR (Non-Af Amer) 42 POC Glucose (mg/dL) 225 H 247 H (65-110) mg/dL Random Glucose 231 H (70-110) mg/dL Calcium 8.2 L (8.4-10.5) mg/dL Phosphorus (2.5-4.5) mg/dL Magnesium 2.0 (1.7-2.2) mg/dL Total Bilirubin 0.5 (0.2-1.3) mg/dL AST 32 (15-59) U/L ALT 43 (7-56) U/L Alkaline Phosphatase 56 (38-133) U/L Lactate Dehydrogenase (333-699) U/L Total Creatine Kinase (35-230) U/L Troponin I ng/mL Total Protein 5.8 (5.8-8.3) g/dL Albumin 3.1 (3.0-4.8) g/dL Globulin 2.7 gm/dL Albumin/Globulin Ratio 1.1 (1.1-1.8) Amylase 166 H (35-125) U/L Lipase 76 (23-300) U/L Arterial Blood Potassium (3.6-5.2) mmol/L Venous Blood Potassium (3.6-5.2) mmol/L Salicylates (2.0-20.0) mg/dL Urine Opiates Screen (NEGATIVE) Urine Methadone Screen (NEGATIVE) Ur Barbiturates Screen (NEGATIVE) Ur Phencyclidine Scrn (NEGATIVE) Ur Amphetamines Screen (NEGATIVE) U Benzodiazepines Scrn (NEGATIVE) U Oth Cocaine Metabols (NEGATIVE) U Cannabinoids Screen (NEGATIVE) Alcohol, Quantitative (0-10) mg/dL 02/17/17 02/17/17 02/17/17 Range/Units 02:03 01:05 00:45 WBC (4.5-11.0) 10^3/ul RBC (3.5-6.1) 10^6/uL Hgb (14.0-18.0) gm/dL Hct (42.0-52.0) % MCV (80.0-105.0) fL MCH (25.0-35.0) pg MCHC (31.0-37.0) g/dl RDW (11.5-14.5) % Plt Count (120.0-450.0) 10^3/uL MPV (7.0-11.0) fl Gran % (50.0-68.0) % Lymph % (Auto) (22.0-35.0) % [facility] % (Auto) (1.0-6.0) % Eos % (Auto) (1.5-5.0) % Baso % (Auto) (0.0-3.0) % Gran # (1.4-6.5) Lymph # (1.2-3.4) [facility] # (0.1-0.6) Eos # (0.0-0.7) Baso # (0.0-2.0) K/mm3 pCO2 (35-45) mm/Hg pO2 (80-100) mm/Hg HCO3 (21-28) mmol/L ABG pH (7.35-7.45) ABG Total CO2 (22-28) mmol.L ABG O2 Saturation (95-98) % ABG Base Excess (-2.0-3.0) mmol/L ABG Potassium (3.6-5.2) mmol/L VBG pH (7.32-7.43) VBG pCO2 (40-60) VBG HCO3 (21-28) mmol/l VBG Total CO2 (22-28) mmol.L VBG O2 Sat (Calc) (40-65) % VBG Base Excess (0.0-2.0) mmol/L VBG Potassium (3.6-5.2) mmol/L Sodium 134 (132-148) mmol/L Chloride 109 H (98-107) mmol/L Glucose (75-110) mg/dl Lactate (0.7-2.1) mmol/L FiO2 % Potassium 4.8 (3.6-5.0) mmol/L Carbon Dioxide 20 L (21-33) mmol/L Anion Gap 10 (10-20) BUN 29 H (7-21) mg/dL Creatinine 1.6 H (0.5-1.4) mg/dL Est GFR ( Amer) 51 Est GFR (Non-Af Amer) 42 POC Glucose (mg/dL) 227 H 254 H (65-110) mg/dL Random Glucose 200 H (70-110) mg/dL Calcium 8.3 L (8.4-10.5) mg/dL Phosphorus (2.5-4.5) mg/dL Magnesium 2.0 (1.7-2.2) mg/dL Total Bilirubin (0.2-1.3) mg/dL AST (15-59) U/L ALT (7-56) U/L Alkaline Phosphatase (38-133) U/L Lactate Dehydrogenase (333-699) U/L Total Creatine Kinase (35-230) U/L Troponin I ng/mL Total Protein (5.8-8.3) g/dL Albumin (3.0-4.8) g/dL Globulin gm/dL Albumin/Globulin Ratio (1.1-1.8) Amylase (35-125) U/L Lipase (23-300) U/L Arterial Blood Potassium (3.6-5.2) mmol/L Venous Blood Potassium (3.6-5.2) mmol/L Salicylates (2.0-20.0) mg/dL Urine Opiates Screen (NEGATIVE) Urine Methadone Screen (NEGATIVE) Ur Barbiturates Screen (NEGATIVE) Ur Phencyclidine Scrn (NEGATIVE) Ur Amphetamines Screen (NEGATIVE) U Benzodiazepines Scrn (NEGATIVE) U Oth Cocaine Metabols (NEGATIVE) U Cannabinoids Screen (NEGATIVE) Alcohol, Quantitative (0-10) mg/dL 02/17/17 02/16/17 02/16/17 Range/Units 00:12 23:30 22:57 WBC (4.5-11.0) 10^3/ul RBC (3.5-6.1) 10^6/uL Hgb (14.0-18.0) gm/dL Hct (42.0-52.0) % MCV (80.0-105.0) fL MCH (25.0-35.0) pg MCHC (31.0-37.0) g/dl RDW (11.5-14.5) % Plt Count (120.0-450.0) 10^3/uL MPV (7.0-11.0) fl Gran % (50.0-68.0) % Lymph % (Auto) (22.0-35.0) % [facility] % (Auto) (1.0-6.0) % Eos % (Auto) (1.5-5.0) % Baso % (Auto) (0.0-3.0) % Gran # (1.4-6.5) Lymph # (1.2-3.4) [facility] # (0.1-0.6) Eos # (0.0-0.7) Baso # (0.0-2.0) K/mm3 pCO2 (35-45) mm/Hg pO2 20 L (80-100) mm/Hg HCO3 (21-28) mmol/L ABG pH (7.35-7.45) ABG Total CO2 (22-28) mmol.L ABG O2 Saturation (95-98) % ABG Base Excess (-2.0-3.0) mmol/L ABG Potassium (3.6-5.2) mmol/L VBG pH 7.21 L (7.32-7.43) VBG pCO2 52.0 (40-60) VBG HCO3 20.8 L (21-28) mmol/l VBG Total CO2 22.4 (22-28) mmol.L VBG O2 Sat (Calc) 39.2 L (40-65) % VBG Base Excess -7.2 L (0.0-2.0) mmol/L VBG Potassium (3.6-5.2) mmol/L Sodium (132-148) mmol/L Chloride 110.0 H (98-107) mmol/L Glucose 223 H (75-110) mg/dl Lactate 1.9 (0.7-2.1) mmol/L FiO2 21 % Potassium (3.6-5.0) mmol/L Carbon Dioxide (21-33) mmol/L Anion Gap (10-20) BUN (7-21) mg/dL Creatinine (0.5-1.4) mg/dL Est GFR ( Amer) Est GFR (Non-Af Amer) POC Glucose (mg/dL) 240 H 274 H (65-110) mg/dL Random Glucose (70-110) mg/dL Calcium (8.4-10.5) mg/dL Phosphorus (2.5-4.5) mg/dL Magnesium (1.7-2.2) mg/dL Total Bilirubin (0.2-1.3) mg/dL AST (15-59) U/L ALT (7-56) U/L Alkaline Phosphatase (38-133) U/L Lactate Dehydrogenase (333-699) U/L Total Creatine Kinase (35-230) U/L Troponin I ng/mL Total Protein (5.8-8.3) g/dL Albumin (3.0-4.8) g/dL Globulin gm/dL Albumin/Globulin Ratio (1.1-1.8) Amylase (35-125) U/L Lipase (23-300) U/L Arterial Blood Potassium (3.6-5.2) mmol/L Venous Blood Potassium (3.6-5.2) mmol/L Salicylates (2.0-20.0) mg/dL Urine Opiates Screen (NEGATIVE) Urine Methadone Screen (NEGATIVE) Ur Barbiturates Screen (NEGATIVE) Ur Phencyclidine Scrn (NEGATIVE) Ur Amphetamines Screen (NEGATIVE) U Benzodiazepines Scrn (NEGATIVE) U Oth Cocaine Metabols (NEGATIVE) U Cannabinoids Screen (NEGATIVE) Alcohol, Quantitative (0-10) mg/dL 02/16/17 02/16/17 02/16/17 Range/Units 21:57 21:03 20:00 WBC (4.5-11.0) 10^3/ul RBC (3.5-6.1) 10^6/uL Hgb (14.0-18.0) gm/dL Hct (42.0-52.0) % MCV (80.0-105.0) fL MCH (25.0-35.0) pg MCHC (31.0-37.0) g/dl RDW (11.5-14.5) % Plt Count (120.0-450.0) 10^3/uL MPV (7.0-11.0) fl Gran % (50.0-68.0) % Lymph % (Auto) (22.0-35.0) % [facility] % (Auto) (1.0-6.0) % Eos % (Auto) (1.5-5.0) % Baso % (Auto) (0.0-3.0) % Gran # (1.4-6.5) Lymph # (1.2-3.4) [facility] # (0.1-0.6) Eos # (0.0-0.7) Baso # (0.0-2.0) K/mm3 pCO2 (35-45) mm/Hg pO2 (80-100) mm/Hg HCO3 (21-28) mmol/L ABG pH (7.35-7.45) ABG Total CO2 (22-28) mmol.L ABG O2 Saturation (95-98) % ABG Base Excess (-2.0-3.0) mmol/L ABG Potassium (3.6-5.2) mmol/L VBG pH (7.32-7.43) VBG pCO2 (40-60) VBG HCO3 (21-28) mmol/l VBG Total CO2 (22-28) mmol.L VBG O2 Sat (Calc) (40-65) % VBG Base Excess (0.0-2.0) mmol/L VBG Potassium (3.6-5.2) mmol/L Sodium (132-148) mmol/L Chloride (98-107) mmol/L Glucose (75-110) mg/dl Lactate (0.7-2.1) mmol/L FiO2 % Potassium (3.6-5.0) mmol/L Carbon Dioxide (21-33) mmol/L Anion Gap (10-20) BUN (7-21) mg/dL Creatinine (0.5-1.4) mg/dL Est GFR ( Amer) Est GFR (Non-Af Amer) POC Glucose (mg/dL) 311 H 304 H 312 H (65-110) mg/dL Random Glucose (70-110) mg/dL Calcium (8.4-10.5) mg/dL Phosphorus (2.5-4.5) mg/dL Magnesium (1.7-2.2) mg/dL Total Bilirubin (0.2-1.3) mg/dL AST (15-59) U/L ALT (7-56) U/L Alkaline Phosphatase (38-133) U/L Lactate Dehydrogenase (333-699) U/L Total Creatine Kinase (35-230) U/L Troponin I ng/mL Total Protein (5.8-8.3) g/dL Albumin (3.0-4.8) g/dL Globulin gm/dL Albumin/Globulin Ratio (1.1-1.8) Amylase (35-125) U/L Lipase (23-300) U/L Arterial Blood Potassium (3.6-5.2) mmol/L Venous Blood Potassium (3.6-5.2) mmol/L Salicylates (2.0-20.0) mg/dL Urine Opiates Screen (NEGATIVE) Urine Methadone Screen (NEGATIVE) Ur Barbiturates Screen (NEGATIVE) Ur Phencyclidine Scrn (NEGATIVE) Ur Amphetamines Screen (NEGATIVE) U Benzodiazepines Scrn (NEGATIVE) U Oth Cocaine Metabols (NEGATIVE) U Cannabinoids Screen (NEGATIVE) Alcohol, Quantitative (0-10) mg/dL 02/16/17 02/16/17 02/16/17 Range/Units 19:50 19:30 19:10 WBC (4.5-11.0) 10^3/ul RBC (3.5-6.1) 10^6/uL Hgb (14.0-18.0) gm/dL Hct (42.0-52.0) % MCV (80.0-105.0) fL MCH (25.0-35.0) pg MCHC (31.0-37.0) g/dl RDW (11.5-14.5) % Plt Count (120.0-450.0) 10^3/uL MPV (7.0-11.0) fl Gran % (50.0-68.0) % Lymph % (Auto) (22.0-35.0) % [facility] % (Auto) (1.0-6.0) % Eos % (Auto) (1.5-5.0) % Baso % (Auto) (0.0-3.0) % Gran # (1.4-6.5) Lymph # (1.2-3.4) [facility] # (0.1-0.6) Eos # (0.0-0.7) Baso # (0.0-2.0) K/mm3 pCO2 (35-45) mm/Hg pO2 22 L (80-100) mm/Hg HCO3 (21-28) mmol/L ABG pH (7.35-7.45) ABG Total CO2 (22-28) mmol.L ABG O2 Saturation (95-98) % ABG Base Excess (-2.0-3.0) mmol/L ABG Potassium (3.6-5.2) mmol/L VBG pH 7.23 L (7.32-7.43) VBG pCO2 49.0 (40-60) VBG HCO3 20.5 L (21-28) mmol/l VBG Total CO2 22.0 (22-28) mmol.L VBG O2 Sat (Calc) 42.7 (40-65) % VBG Base Excess -7.1 L (0.0-2.0) mmol/L VBG Potassium 5.6 H (3.6-5.2) mmol/L Sodium 134.0 134 (132-148) mmol/L Chloride 107.0 105 (98-107) mmol/L Glucose 337 H (75-110) mg/dl Lactate 2.8 H (0.7-2.1) mmol/L FiO2 21.0 % Potassium 4.6 (3.6-5.0) mmol/L Carbon Dioxide 19 L (21-33) mmol/L Anion Gap 15 (10-20) BUN 34 H (7-21) mg/dL Creatinine 1.9 H (0.5-1.4) mg/dL Est GFR ( Amer) 42 Est GFR (Non-Af Amer) 35 POC Glucose (mg/dL) 294 H (65-110) mg/dL Random Glucose 280 H (70-110) mg/dL Calcium 8.3 L (8.4-10.5) mg/dL Phosphorus (2.5-4.5) mg/dL Magnesium 2.1 (1.7-2.2) mg/dL Total Bilirubin (0.2-1.3) mg/dL AST (15-59) U/L ALT (7-56) U/L Alkaline Phosphatase (38-133) U/L Lactate Dehydrogenase 344 (333-699) U/L Total Creatine Kinase 87 (35-230) U/L Troponin I < 0.01 ng/mL Total Protein (5.8-8.3) g/dL Albumin (3.0-4.8) g/dL Globulin gm/dL Albumin/Globulin Ratio (1.1-1.8) Amylase 210 H (35-125) U/L Lipase 159 (23-300) U/L Arterial Blood Potassium (3.6-5.2) mmol/L Venous Blood Potassium 5.6 H (3.6-5.2) mmol/L Salicylates (2.0-20.0) mg/dL Urine Opiates Screen (NEGATIVE) Urine Methadone Screen (NEGATIVE) Ur Barbiturates Screen (NEGATIVE) Ur Phencyclidine Scrn (NEGATIVE) Ur Amphetamines Screen (NEGATIVE) U Benzodiazepines Scrn (NEGATIVE) U Oth Cocaine Metabols (NEGATIVE) U Cannabinoids Screen (NEGATIVE) Alcohol, Quantitative (0-10) mg/dL 02/16/17 02/16/17 02/16/17 Range/Units 18:04 15:59 15:02 WBC (4.5-11.0) 10^3/ul RBC (3.5-6.1) 10^6/uL Hgb (14.0-18.0) gm/dL Hct (42.0-52.0) % MCV (80.0-105.0) fL MCH (25.0-35.0) pg MCHC (31.0-37.0) g/dl RDW (11.5-14.5) % Plt Count (120.0-450.0) 10^3/uL MPV (7.0-11.0) fl Gran % (50.0-68.0) % Lymph % (Auto) (22.0-35.0) % [facility] % (Auto) (1.0-6.0) % Eos % (Auto) (1.5-5.0) % Baso % (Auto) (0.0-3.0) % Gran # (1.4-6.5) Lymph # (1.2-3.4) [facility] # (0.1-0.6) Eos # (0.0-0.7) Baso # (0.0-2.0) K/mm3 pCO2 (35-45) mm/Hg pO2 (80-100) mm/Hg HCO3 (21-28) mmol/L ABG pH (7.35-7.45) ABG Total CO2 (22-28) mmol.L ABG O2 Saturation (95-98) % ABG Base Excess (-2.0-3.0) mmol/L ABG Potassium (3.6-5.2) mmol/L VBG pH (7.32-7.43) VBG pCO2 (40-60) VBG HCO3 (21-28) mmol/l VBG Total CO2 (22-28) mmol.L VBG O2 Sat (Calc) (40-65) % VBG Base Excess (0.0-2.0) mmol/L VBG Potassium (3.6-5.2) mmol/L Sodium (132-148) mmol/L Chloride (98-107) mmol/L Glucose (75-110) mg/dl Lactate (0.7-2.1) mmol/L FiO2 % Potassium (3.6-5.0) mmol/L Carbon Dioxide (21-33) mmol/L Anion Gap (10-20) BUN (7-21) mg/dL Creatinine (0.5-1.4) mg/dL Est GFR ( Amer) Est GFR (Non-Af Amer) POC Glucose (mg/dL) 205 H 114 H 141 H (65-110) mg/dL Random Glucose (70-110) mg/dL Calcium (8.4-10.5) mg/dL Phosphorus (2.5-4.5) mg/dL Magnesium (1.7-2.2) mg/dL Total Bilirubin (0.2-1.3) mg/dL AST (15-59) U/L ALT (7-56) U/L Alkaline Phosphatase (38-133) U/L Lactate Dehydrogenase (333-699) U/L Total Creatine Kinase (35-230) U/L Troponin I ng/mL Total Protein (5.8-8.3) g/dL Albumin (3.0-4.8) g/dL Globulin gm/dL Albumin/Globulin Ratio (1.1-1.8) Amylase (35-125) U/L Lipase (23-300) U/L Arterial Blood Potassium (3.6-5.2) mmol/L Venous Blood Potassium (3.6-5.2) mmol/L Salicylates (2.0-20.0) mg/dL Urine Opiates Screen (NEGATIVE) Urine Methadone Screen (NEGATIVE) Ur Barbiturates Screen (NEGATIVE) Ur Phencyclidine Scrn (NEGATIVE) Ur Amphetamines Screen (NEGATIVE) U Benzodiazepines Scrn (NEGATIVE) U Oth Cocaine Metabols (NEGATIVE) U Cannabinoids Screen (NEGATIVE) Alcohol, Quantitative (0-10) mg/dL 02/16/17 02/16/17 02/16/17 Range/Units 15:00 15:00 13:41 WBC (4.5-11.0) 10^3/ul RBC (3.5-6.1) 10^6/uL Hgb (14.0-18.0) gm/dL Hct (42.0-52.0) % MCV (80.0-105.0) fL MCH (25.0-35.0) pg MCHC (31.0-37.0) g/dl RDW (11.5-14.5) % Plt Count (120.0-450.0) 10^3/uL MPV (7.0-11.0) fl Gran % (50.0-68.0) % Lymph % (Auto) (22.0-35.0) % [facility] % (Auto) (1.0-6.0) % Eos % (Auto) (1.5-5.0) % Baso % (Auto) (0.0-3.0) % Gran # (1.4-6.5) Lymph # (1.2-3.4) [facility] # (0.1-0.6) Eos # (0.0-0.7) Baso # (0.0-2.0) K/mm3 pCO2 (35-45) mm/Hg pO2 23 L (80-100) mm/Hg HCO3 (21-28) mmol/L ABG pH (7.35-7.45) ABG Total CO2 (22-28) mmol.L ABG O2 Saturation (95-98) % ABG Base Excess (-2.0-3.0) mmol/L ABG Potassium (3.6-5.2) mmol/L VBG pH 7.19 L* (7.32-7.43) VBG pCO2 56.0 (40-60) VBG HCO3 21.4 (21-28) mmol/l VBG Total CO2 23.1 (22-28) mmol.L VBG O2 Sat (Calc) 46.5 (40-65) % VBG Base Excess -7.2 L (0.0-2.0) mmol/L VBG Potassium 3.5 L (3.6-5.2) mmol/L Sodium 136.0 137 (132-148) mmol/L Chloride 107.0 105 (98-107) mmol/L Glucose 48 L (75-110) mg/dl Lactate 3.1 H (0.7-2.1) mmol/L FiO2 21.0 % Potassium 3.6 (3.6-5.0) mmol/L Carbon Dioxide 21 (21-33) mmol/L Anion Gap 15 (10-20) BUN 41 H (7-21) mg/dL Creatinine 1.8 H (0.5-1.4) mg/dL Est GFR ( Amer) 45 Est GFR (Non-Af Amer) 37 POC Glucose (mg/dL) 222 H (65-110) mg/dL Random Glucose 52 L (70-110) mg/dL Calcium 9.3 (8.4-10.5) mg/dL Phosphorus (2.5-4.5) mg/dL Magnesium (1.7-2.2) mg/dL Total Bilirubin (0.2-1.3) mg/dL AST (15-59) U/L ALT (7-56) U/L Alkaline Phosphatase (38-133) U/L Lactate Dehydrogenase 351 (333-699) U/L Total Creatine Kinase 77 (35-230) U/L Troponin I < 0.01 ng/mL Total Protein (5.8-8.3) g/dL Albumin (3.0-4.8) g/dL Globulin gm/dL Albumin/Globulin Ratio (1.1-1.8) Amylase (35-125) U/L Lipase (23-300) U/L Arterial Blood Potassium (3.6-5.2) mmol/L Venous Blood Potassium 3.5 L (3.6-5.2) mmol/L Salicylates (2.0-20.0) mg/dL Urine Opiates Screen (NEGATIVE) Urine Methadone Screen (NEGATIVE) Ur Barbiturates Screen (NEGATIVE) Ur Phencyclidine Scrn (NEGATIVE) Ur Amphetamines Screen (NEGATIVE) U Benzodiazepines Scrn (NEGATIVE) U Oth Cocaine Metabols (NEGATIVE) U Cannabinoids Screen (NEGATIVE) Alcohol, Quantitative (0-10) mg/dL 02/16/17 02/16/17 02/16/17 Range/Units 13:15 13:01 12:35 WBC (4.5-11.0) 10^3/ul RBC (3.5-6.1) 10^6/uL Hgb (14.0-18.0) gm/dL Hct (42.0-52.0) % MCV (80.0-105.0) fL MCH (25.0-35.0) pg MCHC (31.0-37.0) g/dl RDW (11.5-14.5) % Plt Count (120.0-450.0) 10^3/uL MPV (7.0-11.0) fl Gran % (50.0-68.0) % Lymph % (Auto) (22.0-35.0) % [facility] % (Auto) (1.0-6.0) % Eos % (Auto) (1.5-5.0) % Baso % (Auto) (0.0-3.0) % Gran # (1.4-6.5) Lymph # (1.2-3.4) [facility] # (0.1-0.6) Eos # (0.0-0.7) Baso # (0.0-2.0) K/mm3 pCO2 (35-45) mm/Hg pO2 (80-100) mm/Hg HCO3 (21-28) mmol/L ABG pH (7.35-7.45) ABG Total CO2 (22-28) mmol.L ABG O2 Saturation (95-98) % ABG Base Excess (-2.0-3.0) mmol/L ABG Potassium (3.6-5.2) mmol/L VBG pH (7.32-7.43) VBG pCO2 (40-60) VBG HCO3 (21-28) mmol/l VBG Total CO2 (22-28) mmol.L VBG O2 Sat (Calc) (40-65) % VBG Base Excess (0.0-2.0) mmol/L VBG Potassium (3.6-5.2) mmol/L Sodium (132-148) mmol/L Chloride (98-107) mmol/L Glucose (75-110) mg/dl Lactate (0.7-2.1) mmol/L FiO2 % Potassium (3.6-5.0) mmol/L Carbon Dioxide (21-33) mmol/L Anion Gap (10-20) BUN (7-21) mg/dL Creatinine (0.5-1.4) mg/dL Est GFR ( Amer) Est GFR (Non-Af Amer) POC Glucose (mg/dL) 75 114 H (65-110) mg/dL Random Glucose (70-110) mg/dL Calcium (8.4-10.5) mg/dL Phosphorus (2.5-4.5) mg/dL Magnesium (1.7-2.2) mg/dL Total Bilirubin (0.2-1.3) mg/dL AST (15-59) U/L ALT (7-56) U/L Alkaline Phosphatase (38-133) U/L Lactate Dehydrogenase (333-699) U/L Total Creatine Kinase (35-230) U/L Troponin I ng/mL Total Protein (5.8-8.3) g/dL Albumin (3.0-4.8) g/dL Globulin gm/dL Albumin/Globulin Ratio (1.1-1.8) Amylase (35-125) U/L Lipase (23-300) U/L Arterial Blood Potassium (3.6-5.2) mmol/L Venous Blood Potassium (3.6-5.2) mmol/L Salicylates (2.0-20.0) mg/dL Urine Opiates Screen Negative (NEGATIVE) Urine Methadone Screen Negative (NEGATIVE) Ur Barbiturates Screen Negative (NEGATIVE) Ur Phencyclidine Scrn Negative (NEGATIVE) Ur Amphetamines Screen Negative (NEGATIVE) U Benzodiazepines Scrn Negative (NEGATIVE) U Oth Cocaine Metabols Negative (NEGATIVE) U Cannabinoids Screen Negative (NEGATIVE) Alcohol, Quantitative (0-10) mg/dL 02/16/17 02/16/17 02/16/17 Range/Units 12:35 12:35 12:35 WBC (4.5-11.0) 10^3/ul RBC (3.5-6.1) 10^6/uL Hgb (14.0-18.0) gm/dL Hct (42.0-52.0) % MCV (80.0-105.0) fL MCH (25.0-35.0) pg MCHC (31.0-37.0) g/dl RDW (11.5-14.5) % Plt Count (120.0-450.0) 10^3/uL MPV (7.0-11.0) fl Gran % (50.0-68.0) % Lymph % (Auto) (22.0-35.0) % [facility] % (Auto) (1.0-6.0) % Eos % (Auto) (1.5-5.0) % Baso % (Auto) (0.0-3.0) % Gran # (1.4-6.5) Lymph # (1.2-3.4) [facility] # (0.1-0.6) Eos # (0.0-0.7) Baso # (0.0-2.0) K/mm3 pCO2 (35-45) mm/Hg pO2 (80-100) mm/Hg HCO3 (21-28) mmol/L ABG pH (7.35-7.45) ABG Total CO2 (22-28) mmol.L ABG O2 Saturation (95-98) % ABG Base Excess (-2.0-3.0) mmol/L ABG Potassium (3.6-5.2) mmol/L VBG pH (7.32-7.43) VBG pCO2 (40-60) VBG HCO3 (21-28) mmol/l VBG Total CO2 (22-28) mmol.L VBG O2 Sat (Calc) (40-65) % VBG Base Excess (0.0-2.0) mmol/L VBG Potassium (3.6-5.2) mmol/L Sodium 138 (132-148) mmol/L Chloride 105 (98-107) mmol/L Glucose (75-110) mg/dl Lactate (0.7-2.1) mmol/L FiO2 % Potassium 3.4 L (3.6-5.0) mmol/L Carbon Dioxide 21 (21-33) mmol/L Anion Gap 15 (10-20) BUN 43 H (7-21) mg/dL Creatinine 2.0 H (0.5-1.4) mg/dL Est GFR ( Amer) 40 Est GFR (Non-Af Amer) 33 POC Glucose (mg/dL) (65-110) mg/dL Random Glucose 58 L (70-110) mg/dL Calcium 9.5 (8.4-10.5) mg/dL Phosphorus 1.9 L (2.5-4.5) mg/dL Magnesium 2.5 H (1.7-2.2) mg/dL Total Bilirubin (0.2-1.3) mg/dL AST (15-59) U/L ALT (7-56) U/L Alkaline Phosphatase (38-133) U/L Lactate Dehydrogenase (333-699) U/L Total Creatine Kinase (35-230) U/L Troponin I ng/mL Total Protein (5.8-8.3) g/dL Albumin (3.0-4.8) g/dL Globulin gm/dL Albumin/Globulin Ratio (1.1-1.8) Amylase (35-125) U/L Lipase (23-300) U/L Arterial Blood Potassium (3.6-5.2) mmol/L Venous Blood Potassium (3.6-5.2) mmol/L Salicylates < 1 L (2.0-20.0) mg/dL Urine Opiates Screen (NEGATIVE) Urine Methadone Screen (NEGATIVE) Ur Barbiturates Screen (NEGATIVE) Ur Phencyclidine Scrn (NEGATIVE) Ur Amphetamines Screen (NEGATIVE) U Benzodiazepines Scrn (NEGATIVE) U Oth Cocaine Metabols (NEGATIVE) U Cannabinoids Screen (NEGATIVE) Alcohol, Quantitative < 10 (0-10) mg/dL 02/16/17 02/16/17 02/16/17 Range/Units 12:19 11:49 10:29 WBC (4.5-11.0) 10^3/ul RBC (3.5-6.1) 10^6/uL Hgb (14.0-18.0) gm/dL Hct (42.0-52.0) % MCV (80.0-105.0) fL MCH (25.0-35.0) pg MCHC (31.0-37.0) g/dl RDW (11.5-14.5) % Plt Count (120.0-450.0) 10^3/uL MPV (7.0-11.0) fl Gran % (50.0-68.0) % Lymph % (Auto) (22.0-35.0) % [facility] % (Auto) (1.0-6.0) % Eos % (Auto) (1.5-5.0) % Baso % (Auto) (0.0-3.0) % Gran # (1.4-6.5) Lymph # (1.2-3.4) [facility] # (0.1-0.6) Eos # (0.0-0.7) Baso # (0.0-2.0) K/mm3 pCO2 37 (35-45) mm/Hg pO2 102.0 H (80-100) mm/Hg HCO3 17.0 L (21-28) mmol/L ABG pH 7.27 L (7.35-7.45) ABG Total CO2 18.1 L (22-28) mmol.L ABG O2 Saturation 98.9 H (95-98) % ABG Base Excess -9.2 L (-2.0-3.0) mmol/L ABG Potassium 3.2 L (3.6-5.2) mmol/L VBG pH (7.32-7.43) VBG pCO2 (40-60) VBG HCO3 (21-28) mmol/l VBG Total CO2 (22-28) mmol.L VBG O2 Sat (Calc) (40-65) % VBG Base Excess (0.0-2.0) mmol/L VBG Potassium (3.6-5.2) mmol/L Sodium 131.0 L (132-148) mmol/L Chloride 102.0 (98-107) mmol/L Glucose 552 H* D (75-110) mg/dl Lactate 2.1 (0.7-2.1) mmol/L FiO2 21.0 % Potassium (3.6-5.0) mmol/L Carbon Dioxide (21-33) mmol/L Anion Gap (10-20) BUN (7-21) mg/dL Creatinine (0.5-1.4) mg/dL Est GFR ( Amer) Est GFR (Non-Af Amer) POC Glucose (mg/dL) 316 H 236 H (65-110) mg/dL Random Glucose (70-110) mg/dL Calcium (8.4-10.5) mg/dL Phosphorus (2.5-4.5) mg/dL Magnesium (1.7-2.2) mg/dL Total Bilirubin (0.2-1.3) mg/dL AST (15-59) U/L ALT (7-56) U/L Alkaline Phosphatase (38-133) U/L Lactate Dehydrogenase (333-699) U/L Total Creatine Kinase (35-230) U/L Troponin I ng/mL Total Protein (5.8-8.3) g/dL Albumin (3.0-4.8) g/dL Globulin gm/dL Albumin/Globulin Ratio (1.1-1.8) Amylase (35-125) U/L Lipase (23-300) U/L Arterial Blood Potassium 3.2 L (3.6-5.2) mmol/L Venous Blood Potassium (3.6-5.2) mmol/L Salicylates (2.0-20.0) mg/dL Urine Opiates Screen (NEGATIVE) Urine Methadone Screen (NEGATIVE) Ur Barbiturates Screen (NEGATIVE) Ur Phencyclidine Scrn (NEGATIVE) Ur Amphetamines Screen (NEGATIVE) U Benzodiazepines Scrn (NEGATIVE) U Oth Cocaine Metabols (NEGATIVE) U Cannabinoids Screen (NEGATIVE) Alcohol, Quantitative (0-10) mg/dL Laboratory Results - last 24 hr 02/16/17 02/16/17 02/16/17 10:29 11:49 12:19 WBC RBC Hgb Hct MCV MCH MCHC RDW Plt Count MPV Gran % Lymph % (Auto) [facility] % (Auto) Eos % (Auto) Baso % (Auto) Gran # Lymph # [facility] # Eos # Baso # pCO2 37 pO2 102.0 H HCO3 17.0 L ABG pH 7.27 L ABG Total CO2 18.1 L ABG O2 Saturation 98.9 H ABG Base Excess -9.2 L ABG Potassium 3.2 L VBG pH VBG pCO2 VBG HCO3 VBG Total CO2 VBG O2 Sat (Calc) VBG Base Excess VBG Potassium Sodium 131.0 L Chloride 102.0 Glucose 552 H* D Lactate 2.1 FiO2 21.0 Potassium Carbon Dioxide Anion Gap BUN Creatinine Est GFR ( Amer) Est GFR (Non-Af Amer) POC Glucose (mg/dL) 236 H 316 H Random Glucose Calcium Phosphorus Magnesium Total Bilirubin AST ALT Alkaline Phosphatase Lactate Dehydrogenase Total Creatine Kinase Troponin I Total Protein Albumin Globulin Albumin/Globulin Ratio Amylase Lipase Arterial Blood Potassium 3.2 L Venous Blood Potassium Salicylates Urine Opiates Screen Urine Methadone Screen Ur Barbiturates Screen Ur Phencyclidine Scrn Ur Amphetamines Screen U Benzodiazepines Scrn U Oth Cocaine Metabols U Cannabinoids Screen Alcohol, Quantitative 02/16/17 02/16/17 02/16/17 12:35 12:35 12:35 WBC RBC Hgb Hct MCV MCH MCHC RDW Plt Count MPV Gran % Lymph % (Auto) [facility] % (Auto) Eos % (Auto) Baso % (Auto) Gran # Lymph # [facility] # Eos # Baso # pCO2 pO2 HCO3 ABG pH ABG Total CO2 ABG O2 Saturation ABG Base Excess ABG Potassium VBG pH VBG pCO2 VBG HCO3 VBG Total CO2 VBG O2 Sat (Calc) VBG Base Excess VBG Potassium Sodium 138 Chloride 105 Glucose Lactate FiO2 Potassium 3.4 L Carbon Dioxide 21 Anion Gap 15 BUN 43 H Creatinine 2.0 H Est GFR ( Amer) 40 Est GFR (Non-Af Amer) 33 POC Glucose (mg/dL) Random Glucose 58 L Calcium 9.5 Phosphorus 1.9 L Magnesium 2.5 H Total Bilirubin AST ALT Alkaline Phosphatase Lactate Dehydrogenase Total Creatine Kinase Troponin I Total Protein Albumin Globulin Albumin/Globulin Ratio Amylase Lipase Arterial Blood Potassium Venous Blood Potassium Salicylates < 1 L Urine Opiates Screen Urine Methadone Screen Ur Barbiturates Screen Ur Phencyclidine Scrn Ur Amphetamines Screen U Benzodiazepines Scrn U Oth Cocaine Metabols U Cannabinoids Screen Alcohol, Quantitative < 10 02/16/17 02/16/17 02/16/17 12:35 13:01 13:15 WBC RBC Hgb Hct MCV MCH MCHC RDW Plt Count MPV Gran % Lymph % (Auto) [facility] % (Auto) Eos % (Auto) Baso % (Auto) Gran # Lymph # [facility] # Eos # Baso # pCO2 pO2 HCO3 ABG pH ABG Total CO2 ABG O2 Saturation ABG Base Excess ABG Potassium VBG pH VBG pCO2 VBG HCO3 VBG Total CO2 VBG O2 Sat (Calc) VBG Base Excess VBG Potassium Sodium Chloride Glucose Lactate FiO2 Potassium Carbon Dioxide Anion Gap BUN Creatinine Est GFR ( Amer) Est GFR (Non-Af Amer) POC Glucose (mg/dL) 114 H 75 Random Glucose Calcium Phosphorus Magnesium Total Bilirubin AST ALT Alkaline Phosphatase Lactate Dehydrogenase Total Creatine Kinase Troponin I Total Protein Albumin Globulin Albumin/Globulin Ratio Amylase Lipase Arterial Blood Potassium Venous Blood Potassium Salicylates Urine Opiates Screen Negative Urine Methadone Screen Negative Ur Barbiturates Screen Negative Ur Phencyclidine Scrn Negative Ur Amphetamines Screen Negative U Benzodiazepines Scrn Negative U Oth Cocaine Metabols Negative U Cannabinoids Screen Negative Alcohol, Quantitative 02/16/17 02/16/17 02/16/17 13:41 15:00 15:00 WBC RBC Hgb Hct MCV MCH MCHC RDW Plt Count MPV Gran % Lymph % (Auto) [facility] % (Auto) Eos % (Auto) Baso % (Auto) Gran # Lymph # [facility] # Eos # Baso # pCO2 pO2 23 L HCO3 ABG pH ABG Total CO2 ABG O2 Saturation ABG Base Excess ABG Potassium VBG pH 7.19 L* VBG pCO2 56.0 VBG HCO3 21.4 VBG Total CO2 23.1 VBG O2 Sat (Calc) 46.5 VBG Base Excess -7.2 L VBG Potassium 3.5 L Sodium 137 136.0 Chloride 105 107.0 Glucose 48 L Lactate 3.1 H FiO2 21.0 Potassium 3.6 Carbon Dioxide 21 Anion Gap 15 BUN 41 H Creatinine 1.8 H Est GFR ( Amer) 45 Est GFR (Non-Af Amer) 37 POC Glucose (mg/dL) 222 H Random Glucose 52 L Calcium 9.3 Phosphorus Magnesium Total Bilirubin AST ALT Alkaline Phosphatase Lactate Dehydrogenase 351 Total Creatine Kinase 77 Troponin I < 0.01 Total Protein Albumin Globulin Albumin/Globulin Ratio Amylase Lipase Arterial Blood Potassium Venous Blood Potassium 3.5 L Salicylates Urine Opiates Screen Urine Methadone Screen Ur Barbiturates Screen Ur Phencyclidine Scrn Ur Amphetamines Screen U Benzodiazepines Scrn U Oth Cocaine Metabols U Cannabinoids Screen Alcohol, Quantitative 02/16/17 02/16/17 02/16/17 15:02 15:59 18:04 WBC RBC Hgb Hct MCV MCH MCHC RDW Plt Count MPV Gran % Lymph % (Auto) [facility] % (Auto) Eos % (Auto) Baso % (Auto) Gran # Lymph # [facility] # Eos # Baso # pCO2 pO2 HCO3 ABG pH ABG Total CO2 ABG O2 Saturation ABG Base Excess ABG Potassium VBG pH VBG pCO2 VBG HCO3 VBG Total CO2 VBG O2 Sat (Calc) VBG Base Excess VBG Potassium Sodium Chloride Glucose Lactate FiO2 Potassium Carbon Dioxide Anion Gap BUN Creatinine Est GFR ( Amer) Est GFR (Non-Af Amer) POC Glucose (mg/dL) 141 H 114 H 205 H Random Glucose Calcium Phosphorus Magnesium Total Bilirubin AST ALT Alkaline Phosphatase Lactate Dehydrogenase Total Creatine Kinase Troponin I Total Protein Albumin Globulin Albumin/Globulin Ratio Amylase Lipase Arterial Blood Potassium Venous Blood Potassium Salicylates Urine Opiates Screen Urine Methadone Screen Ur Barbiturates Screen Ur Phencyclidine Scrn Ur Amphetamines Screen U Benzodiazepines Scrn U Oth Cocaine Metabols U Cannabinoids Screen Alcohol, Quantitative 02/16/17 02/16/17 02/16/17 19:10 19:30 19:50 WBC RBC Hgb Hct MCV MCH MCHC RDW Plt Count MPV Gran % Lymph % (Auto) [facility] % (Auto) Eos % (Auto) Baso % (Auto) Gran # Lymph # [facility] # Eos # Baso # pCO2 pO2 22 L HCO3 ABG pH ABG Total CO2 ABG O2 Saturation ABG Base Excess ABG Potassium VBG pH 7.23 L VBG pCO2 49.0 VBG HCO3 20.5 L VBG Total CO2 22.0 VBG O2 Sat (Calc) 42.7 VBG Base Excess -7.1 L VBG Potassium 5.6 H Sodium 134 134.0 Chloride 105 107.0 Glucose 337 H Lactate 2.8 H FiO2 21.0 Potassium 4.6 Carbon Dioxide 19 L Anion Gap 15 BUN 34 H Creatinine 1.9 H Est GFR ( Amer) 42 Est GFR (Non-Af Amer) 35 POC Glucose (mg/dL) 294 H Random Glucose 280 H Calcium 8.3 L Phosphorus Magnesium 2.1 Total Bilirubin AST ALT Alkaline Phosphatase Lactate Dehydrogenase 344 Total Creatine Kinase 87 Troponin I < 0.01 Total Protein Albumin Globulin Albumin/Globulin Ratio Amylase 210 H Lipase 159 Arterial Blood Potassium Venous Blood Potassium 5.6 H Salicylates Urine Opiates Screen Urine Methadone Screen Ur Barbiturates Screen Ur Phencyclidine Scrn Ur Amphetamines Screen U Benzodiazepines Scrn U Oth Cocaine Metabols U Cannabinoids Screen Alcohol, Quantitative 02/16/17 02/16/17 02/16/17 20:00 21:03 21:57 WBC RBC Hgb Hct MCV MCH MCHC RDW Plt Count MPV Gran % Lymph % (Auto) [facility] % (Auto) Eos % (Auto) Baso % (Auto) Gran # Lymph # [facility] # Eos # Baso # pCO2 pO2 HCO3 ABG pH ABG Total CO2 ABG O2 Saturation ABG Base Excess ABG Potassium VBG pH VBG pCO2 VBG HCO3 VBG Total CO2 VBG O2 Sat (Calc) VBG Base Excess VBG Potassium Sodium Chloride Glucose Lactate FiO2 Potassium Carbon Dioxide Anion Gap BUN Creatinine Est GFR ( Amer) Est GFR (Non-Af Amer) POC Glucose (mg/dL) 312 H 304 H 311 H Random Glucose Calcium Phosphorus Magnesium Total Bilirubin AST ALT Alkaline Phosphatase Lactate Dehydrogenase Total Creatine Kinase Troponin I Total Protein Albumin Globulin Albumin/Globulin Ratio Amylase Lipase Arterial Blood Potassium Venous Blood Potassium Salicylates Urine Opiates Screen Urine Methadone Screen Ur Barbiturates Screen Ur Phencyclidine Scrn Ur Amphetamines Screen U Benzodiazepines Scrn U Oth Cocaine Metabols U Cannabinoids Screen Alcohol, Quantitative 02/16/17 02/16/17 02/17/17 22:57 23:30 00:12 WBC RBC Hgb Hct MCV MCH MCHC RDW Plt Count MPV Gran % Lymph % (Auto) [facility] % (Auto) Eos % (Auto) Baso % (Auto) Gran # Lymph # [facility] # Eos # Baso # pCO2 pO2 20 L HCO3 ABG pH ABG Total CO2 ABG O2 Saturation ABG Base Excess ABG Potassium VBG pH 7.21 L VBG pCO2 52.0 VBG HCO3 20.8 L VBG Total CO2 22.4 VBG O2 Sat (Calc) 39.2 L VBG Base Excess -7.2 L VBG Potassium Sodium Chloride 110.0 H Glucose 223 H Lactate 1.9 FiO2 21 Potassium Carbon Dioxide Anion Gap BUN Creatinine Est GFR ( Amer) Est GFR (Non-Af Amer) POC Glucose (mg/dL) 274 H 240 H Random Glucose Calcium Phosphorus Magnesium Total Bilirubin AST ALT Alkaline Phosphatase Lactate Dehydrogenase Total Creatine Kinase Troponin I Total Protein Albumin Globulin Albumin/Globulin Ratio Amylase Lipase Arterial Blood Potassium Venous Blood Potassium Salicylates Urine Opiates Screen Urine Methadone Screen Ur Barbiturates Screen Ur Phencyclidine Scrn Ur Amphetamines Screen U Benzodiazepines Scrn U Oth Cocaine Metabols U Cannabinoids Screen Alcohol, Quantitative 02/17/17 02/17/17 02/17/17 00:45 01:05 02:03 WBC RBC Hgb Hct MCV MCH MCHC RDW Plt Count MPV Gran % Lymph % (Auto) [facility] % (Auto) Eos % (Auto) Baso % (Auto) Gran # Lymph # [facility] # Eos # Baso # pCO2 pO2 HCO3 ABG pH ABG Total CO2 ABG O2 Saturation ABG Base Excess ABG Potassium VBG pH VBG pCO2 VBG HCO3 VBG Total CO2 VBG O2 Sat (Calc) VBG Base Excess VBG Potassium Sodium 134 Chloride 109 H Glucose Lactate FiO2 Potassium 4.8 Carbon Dioxide 20 L Anion Gap 10 BUN 29 H Creatinine 1.6 H Est GFR ( Amer) 51 Est GFR (Non-Af Amer) 42 POC Glucose (mg/dL) 254 H 227 H Random Glucose 200 H Calcium 8.3 L Phosphorus Magnesium 2.0 Total Bilirubin AST ALT Alkaline Phosphatase Lactate Dehydrogenase Total Creatine Kinase Troponin I Total Protein Albumin Globulin Albumin/Globulin Ratio Amylase Lipase Arterial Blood Potassium Venous Blood Potassium Salicylates Urine Opiates Screen Urine Methadone Screen Ur Barbiturates Screen Ur Phencyclidine Scrn Ur Amphetamines Screen U Benzodiazepines Scrn U Oth Cocaine Metabols U Cannabinoids Screen Alcohol, Quantitative 02/17/17 02/17/17 02/17/17 03:09 04:15 05:00 WBC RBC Hgb Hct MCV MCH MCHC RDW Plt Count MPV Gran % Lymph % (Auto) [facility] % (Auto) Eos % (Auto) Baso % (Auto) Gran # Lymph # [facility] # Eos # Baso # pCO2 pO2 HCO3 ABG pH ABG Total CO2 ABG O2 Saturation ABG Base Excess ABG Potassium VBG pH VBG pCO2 VBG HCO3 VBG Total CO2 VBG O2 Sat (Calc) VBG Base Excess VBG Potassium Sodium 136 Chloride 110 H Glucose Lactate FiO2 Potassium 4.9 Carbon Dioxide 20 L Anion Gap 11 BUN 25 H Creatinine 1.6 H Est GFR ( Amer) 51 Est GFR (Non-Af Amer) 42 POC Glucose (mg/dL) 247 H 225 H Random Glucose 231 H Calcium 8.2 L Phosphorus Magnesium 2.0 Total Bilirubin 0.5 AST 32 ALT 43 Alkaline Phosphatase 56 Lactate Dehydrogenase Total Creatine Kinase Troponin I Total Protein 5.8 Albumin 3.1 Globulin 2.7 Albumin/Globulin Ratio 1.1 Amylase 166 H Lipase 76 Arterial Blood Potassium Venous Blood Potassium Salicylates Urine Opiates Screen Urine Methadone Screen Ur Barbiturates Screen Ur Phencyclidine Scrn Ur Amphetamines Screen U Benzodiazepines Scrn U Oth Cocaine Metabols U Cannabinoids Screen Alcohol, Quantitative 02/17/17 02/17/17 02/17/17 05:00 05:12 06:05 WBC 4.2 L RBC 3.71 Hgb 11.4 L Hct 32.2 L MCV 86.8 MCH 30.7 MCHC 35.4 RDW 12.1 Plt Count 143 MPV 11.1 H Gran % 71.3 H Lymph % (Auto) 19.[address] [facility] % (Auto) 5.4 Eos % (Auto) 3.3 Baso % (Auto) 0.2 Gran # 3.02 Lymph # 0.[address] [facility] # 0.2 Eos # 0.1 Baso # 0.01 pCO2 pO2 HCO3 ABG pH ABG Total CO2 ABG O2 Saturation ABG Base Excess ABG Potassium VBG pH VBG pCO2 VBG HCO3 VBG Total CO2 VBG O2 Sat (Calc) VBG Base Excess VBG Potassium Sodium Chloride Glucose Lactate FiO2 Potassium Carbon Dioxide Anion Gap BUN Creatinine Est GFR ( Amer) Est GFR (Non-Af Amer) POC Glucose (mg/dL) 249 H 257 H Random Glucose Calcium Phosphorus Magnesium Total Bilirubin AST ALT Alkaline Phosphatase Lactate Dehydrogenase Total Creatine Kinase Troponin I Total Protein Albumin Globulin Albumin/Globulin Ratio Amylase Lipase Arterial Blood Potassium Venous Blood Potassium Salicylates Urine Opiates Screen Urine Methadone Screen Ur Barbiturates Screen Ur Phencyclidine Scrn Ur Amphetamines Screen U Benzodiazepines Scrn U Oth Cocaine Metabols U Cannabinoids Screen Alcohol, Quantitative Fingerstick Blood Sugar Results: 257 Critical Care Progress Note - Nutrition Nutrition: Nutrition Category Date Time Status Heart Healthy Diet [DIET] Diets 02/16/17 Dinner Ordered Assessment/Plan - Assessment and Plan (Free Text) Plan: 75 M admitted to ICU for HHS progressing to DKA requiring insulin gtt. ct showed possible hemorrhagic cyst in L kidney. DELFINO likely prerenal from dehydration more than intrsinc or post-renal from prostate cancer or renal cyst. Metabolic acidosis with no significant osmolar gap makes ingestion of other alcohol less likely. Neuro No active issue Cardio trops negative x 3 Pulm No active issue GI HHD carb consist DELFINO, improving, cre 2.2 to 1.6 Strict i/o ct: possible hemorrhagic cyst in kidney Consider renal consult Endo Metabolic acidosis with elevated osmolar gap at 16. Anion Gap closed. BMP, Mg q 4; Accu q1 Off insulin gtt now; levemir 10 qHS; isss q4 pt unaware of how to take meds and correct dose; skip meds x 1 month Endo consult Heme likely chronic macrocytic/nomocytic anemia. Work up per primary. Infectious lactate NOT elevated 1.3 --> 2.1 --> 1.9 Leukopenia resolved. Likely due to SIRS/dehydration/DKa Prophylasix SCD, given hemorrhagic cyst Disposition OOB with assist PT/OT Transfer to Med/Surg Dr. Candie romo (covering for Dr. Cordero) S/R/D/w Dr. Jackson - Date & Time Date: 02/17/17 Time: 08:11 <Manuel SUN,Meng H - Last Filed: 02/17/17 13:39> CCU Objective - Vital Signs / Intake & Output Vital Signs (Last 4 hours): Vital Signs Pulse Resp BP Pulse Ox 02/17/17 13:00 54 L 18 128/54 L 98 02/17/17 12:30 68 93 L 02/17/17 12:00 60 14 177/73 H 91 L 02/17/17 11:30 47 L 9 L 80 L 02/17/17 11:08 58 L 14 02/17/17 11:00 51 L 9 L 152/93 H 99 02/17/17 10:33 60 137/66 02/17/17 10:32 137/66 02/17/17 10:30 54 L 16 97 02/17/17 10:00 54 L 8 L 137/66 100 Intake and Output (Last 8hrs): Intake & Output 02/16/17 02/17/17 02/17/17 22:59 06:59 14:59 Intake Total 1650 4500 Output Total 350 2500 Balance 1300 2000 Weight 146 lb 145 lb 9 oz Intake: IV 1250 4000 Right Forearm 1250 4000 Oral 400 500 Output: Urine 350 2500 Urine, Voided 350 2500 Other: Voiding Method Urinal # Voids Urine, Voided 3 # Bowel Movements 1 - Medications Active Medications: Active Medications Generic Name Dose Route Start Last Admin Trade Name Freq PRN Reason Stop Dose Admin Amlodipine Besylate 10 mg 02/17/17 10:00 02/17/17 10:32 Norvasc PO 10 mg DAILY NAMRATA Administration Gabapentin 300 mg 02/16/17 22:00 02/16/17 22:34 Neurontin PO 300 mg HS NAMRATA Administration Protocol Sodium Chloride 1,000 mls @ 150 mls/hr 02/16/17 19:31 02/17/17 02:00 Sodium Chloride 0.9% IV 150 mls/hr .[id number] NAMRATA Administration Insulin Detemir 20 unit 02/17/17 22:00 Levemir SC HS NAMRATA Insulin Human Lispro 6 units 02/17/17 11:30 02/17/17 12:43 Humalog SC 6 units AC NAMRATA Administration Insulin Human Lispro 0 units 02/17/17 11:30 02/17/17 11:30 Humalog Med SC Not Given [facility] Protocol Metoprolol Succinate 25 mg 02/17/17 10:00 02/17/17 10:33 Toprol Xl PO 25 mg DAILY NAMRATA Administration Morphine Sulfate 1 mg 02/16/17 17:50 02/17/17 06:30 Morphine IM 1 mg Q4H PRN Administration Pain, moderate (4-7) - Patient Studies Lab Studies: Lab Studies 02/17/17 02/17/17 02/17/17 Range/Units 06:05 05:12 05:00 WBC 4.2 L (4.5-11.0) 10^3/ul RBC 3.71 (3.5-6.1) 10^6/uL Hgb 11.4 L (14.0-18.0) gm/dL Hct 32.2 L (42.0-52.0) % MCV 86.8 (80.0-105.0) fL MCH 30.7 (25.0-35.0) pg MCHC 35.4 (31.0-37.0) g/dl RDW 12.1 (11.5-14.5) % Plt Count 143 (120.0-450.0) 10^3/uL MPV 11.1 H (7.0-11.0) fl Gran % 71.3 H (50.0-68.0) % Lymph % (Auto) 19.8 L (22.0-35.0) % [facility] % (Auto) 5.4 (1.0-6.0) % Eos % (Auto) 3.3 (1.5-5.0) % Baso % (Auto) 0.2 (0.0-3.0) % Gran # 3.02 (1.4-6.5) Lymph # 0.8 L (1.2-3.4) [facility] # 0.2 (0.1-0.6) Eos # 0.1 (0.0-0.7) Baso # 0.01 (0.0-2.0) K/mm3 pO2 (30-55) mm/Hg VBG pH (7.32-7.43) VBG pCO2 (40-60) VBG HCO3 (21-28) mmol/l VBG Total CO2 (22-28) mmol.L VBG O2 Sat (Calc) (40-65) % VBG Base Excess (0.0-2.0) mmol/L VBG Potassium (3.6-5.2) mmol/L Sodium (132-148) mmol/L Chloride (98-107) mmol/L Glucose (75-110) mg/dl Lactate (0.7-2.1) mmol/L FiO2 % Potassium (3.6-5.0) mmol/L Carbon Dioxide (21-33) mmol/L Anion Gap (10-20) BUN (7-21) mg/dL Creatinine (0.5-1.4) mg/dL Est GFR ( Amer) Est GFR (Non-Af Amer) POC Glucose (mg/dL) 257 H 249 H (65-110) mg/dL Random Glucose (70-110) mg/dL Calcium (8.4-10.5) mg/dL Magnesium (1.7-2.2) mg/dL Total Bilirubin (0.2-1.3) mg/dL AST (15-59) U/L ALT (7-56) U/L Alkaline Phosphatase (38-133) U/L Lactate Dehydrogenase (333-699) U/L Total Creatine Kinase (35-230) U/L Troponin I ng/mL Total Protein (5.8-8.3) g/dL Albumin (3.0-4.8) g/dL Globulin gm/dL Albumin/Globulin Ratio (1.1-1.8) Amylase (35-125) U/L Lipase (23-300) U/L Venous Blood Potassium (3.6-5.2) mmol/L 02/17/17 02/17/17 02/17/17 Range/Units 05:00 04:15 03:09 WBC (4.5-11.0) 10^3/ul RBC (3.5-6.1) 10^6/uL Hgb (14.0-18.0) gm/dL Hct (42.0-52.0) % MCV (80.0-105.0) fL MCH (25.0-35.0) pg MCHC (31.0-37.0) g/dl RDW (11.5-14.5) % Plt Count (120.0-450.0) 10^3/uL MPV (7.0-11.0) fl Gran % (50.0-68.0) % Lymph % (Auto) (22.0-35.0) % [facility] % (Auto) (1.0-6.0) % Eos % (Auto) (1.5-5.0) % Baso % (Auto) (0.0-3.0) % Gran # (1.4-6.5) Lymph # (1.2-3.4) [facility] # (0.1-0.6) Eos # (0.0-0.7) Baso # (0.0-2.0) K/mm3 pO2 (30-55) mm/Hg VBG pH (7.32-7.43) VBG pCO2 (40-60) VBG HCO3 (21-28) mmol/l VBG Total CO2 (22-28) mmol.L VBG O2 Sat (Calc) (40-65) % VBG Base Excess (0.0-2.0) mmol/L VBG Potassium (3.6-5.2) mmol/L Sodium 136 (132-148) mmol/L Chloride 110 H (98-107) mmol/L Glucose (75-110) mg/dl Lactate (0.7-2.1) mmol/L FiO2 % Potassium 4.9 (3.6-5.0) mmol/L Carbon Dioxide 20 L (21-33) mmol/L Anion Gap 11 (10-20) BUN 25 H (7-21) mg/dL Creatinine 1.6 H (0.5-1.4) mg/dL Est GFR ( Amer) 51 Est GFR (Non-Af Amer) 42 POC Glucose (mg/dL) 225 H 247 H (65-110) mg/dL Random Glucose 231 H (70-110) mg/dL Calcium 8.2 L (8.4-10.5) mg/dL Magnesium 2.0 (1.7-2.2) mg/dL Total Bilirubin 0.5 (0.2-1.3) mg/dL AST 32 (15-59) U/L ALT 43 (7-56) U/L Alkaline Phosphatase 56 (38-133) U/L Lactate Dehydrogenase (333-699) U/L Total Creatine Kinase (35-230) U/L Troponin I ng/mL Total Protein 5.8 (5.8-8.3) g/dL Albumin 3.1 (3.0-4.8) g/dL Globulin 2.7 gm/dL Albumin/Globulin Ratio 1.1 (1.1-1.8) Amylase 166 H (35-125) U/L Lipase 76 (23-300) U/L Venous Blood Potassium (3.6-5.2) mmol/L 02/17/17 02/17/17 02/17/17 Range/Units 02:03 01:05 00:45 WBC (4.5-11.0) 10^3/ul RBC (3.5-6.1) 10^6/uL Hgb (14.0-18.0) gm/dL Hct (42.0-52.0) % MCV (80.0-105.0) fL MCH (25.0-35.0) pg MCHC (31.0-37.0) g/dl RDW (11.5-14.5) % Plt Count (120.0-450.0) 10^3/uL MPV (7.0-11.0) fl Gran % (50.0-68.0) % Lymph % (Auto) (22.0-35.0) % [facility] % (Auto) (1.0-6.0) % Eos % (Auto) (1.5-5.0) % Baso % (Auto) (0.0-3.0) % Gran # (1.4-6.5) Lymph # (1.2-3.4) [facility] # (0.1-0.6) Eos # (0.0-0.7) Baso # (0.0-2.0) K/mm3 pO2 (30-55) mm/Hg VBG pH (7.32-7.43) VBG pCO2 (40-60) VBG HCO3 (21-28) mmol/l VBG Total CO2 (22-28) mmol.L VBG O2 Sat (Calc) (40-65) % VBG Base Excess (0.0-2.0) mmol/L VBG Potassium (3.6-5.2) mmol/L Sodium 134 (132-148) mmol/L Chloride 109 H (98-107) mmol/L Glucose (75-110) mg/dl Lactate (0.7-2.1) mmol/L FiO2 % Potassium 4.8 (3.6-5.0) mmol/L Carbon Dioxide 20 L (21-33) mmol/L Anion Gap 10 (10-20) BUN 29 H (7-21) mg/dL Creatinine 1.6 H (0.5-1.4) mg/dL Est GFR ( Amer) 51 Est GFR (Non-Af Amer) 42 POC Glucose (mg/dL) 227 H 254 H (65-110) mg/dL Random Glucose 200 H (70-110) mg/dL Calcium 8.3 L (8.4-10.5) mg/dL Magnesium 2.0 (1.7-2.2) mg/dL Total Bilirubin (0.2-1.3) mg/dL AST (15-59) U/L ALT (7-56) U/L Alkaline Phosphatase (38-133) U/L Lactate Dehydrogenase (333-699) U/L Total Creatine Kinase (35-230) U/L Troponin I ng/mL Total Protein (5.8-8.3) g/dL Albumin (3.0-4.8) g/dL Globulin gm/dL Albumin/Globulin Ratio (1.1-1.8) Amylase (35-125) U/L Lipase (23-300) U/L Venous Blood Potassium (3.6-5.2) mmol/L 02/17/17 02/16/17 02/16/17 Range/Units 00:12 23:30 22:57 WBC (4.5-11.0) 10^3/ul RBC (3.5-6.1) 10^6/uL Hgb (14.0-18.0) gm/dL Hct (42.0-52.0) % MCV (80.0-105.0) fL MCH (25.0-35.0) pg MCHC (31.0-37.0) g/dl RDW (11.5-14.5) % Plt Count (120.0-450.0) 10^3/uL MPV (7.0-11.0) fl Gran % (50.0-68.0) % Lymph % (Auto) (22.0-35.0) % [facility] % (Auto) (1.0-6.0) % Eos % (Auto) (1.5-5.0) % Baso % (Auto) (0.0-3.0) % Gran # (1.4-6.5) Lymph # (1.2-3.4) [facility] # (0.1-0.6) Eos # (0.0-0.7) Baso # (0.0-2.0) K/mm3 pO2 20 L (30-55) mm/Hg VBG pH 7.21 L (7.32-7.43) VBG pCO2 52.0 (40-60) VBG HCO3 20.8 L (21-28) mmol/l VBG Total CO2 22.4 (22-28) mmol.L VBG O2 Sat (Calc) 39.2 L (40-65) % VBG Base Excess -7.2 L (0.0-2.0) mmol/L VBG Potassium (3.6-5.2) mmol/L Sodium (132-148) mmol/L Chloride 110.0 H (98-107) mmol/L Glucose 223 H (75-110) mg/dl Lactate 1.9 (0.7-2.1) mmol/L FiO2 21 % Potassium (3.6-5.0) mmol/L Carbon Dioxide (21-33) mmol/L Anion Gap (10-20) BUN (7-21) mg/dL Creatinine (0.5-1.4) mg/dL Est GFR ( Amer) Est GFR (Non-Af Amer) POC Glucose (mg/dL) 240 H 274 H (65-110) mg/dL Random Glucose (70-110) mg/dL Calcium (8.4-10.5) mg/dL Magnesium (1.7-2.2) mg/dL Total Bilirubin (0.2-1.3) mg/dL AST (15-59) U/L ALT (7-56) U/L Alkaline Phosphatase (38-133) U/L Lactate Dehydrogenase (333-699) U/L Total Creatine Kinase (35-230) U/L Troponin I ng/mL Total Protein (5.8-8.3) g/dL Albumin (3.0-4.8) g/dL Globulin gm/dL Albumin/Globulin Ratio (1.1-1.8) Amylase (35-125) U/L Lipase (23-300) U/L Venous Blood Potassium (3.6-5.2) mmol/L 02/16/17 02/16/17 02/16/17 Range/Units 21:57 21:03 20:00 WBC (4.5-11.0) 10^3/ul RBC (3.5-6.1) 10^6/uL Hgb (14.0-18.0) gm/dL Hct (42.0-52.0) % MCV (80.0-105.0) fL MCH (25.0-35.0) pg MCHC (31.0-37.0) g/dl RDW (11.5-14.5) % Plt Count (120.0-450.0) 10^3/uL MPV (7.0-11.0) fl Gran % (50.0-68.0) % Lymph % (Auto) (22.0-35.0) % [facility] % (Auto) (1.0-6.0) % Eos % (Auto) (1.5-5.0) % Baso % (Auto) (0.0-3.0) % Gran # (1.4-6.5) Lymph # (1.2-3.4) [facility] # (0.1-0.6) Eos # (0.0-0.7) Baso # (0.0-2.0) K/mm3 pO2 (30-55) mm/Hg VBG pH (7.32-7.43) VBG pCO2 (40-60) VBG HCO3 (21-28) mmol/l VBG Total CO2 (22-28) mmol.L VBG O2 Sat (Calc) (40-65) % VBG Base Excess (0.0-2.0) mmol/L VBG Potassium (3.6-5.2) mmol/L Sodium (132-148) mmol/L Chloride (98-107) mmol/L Glucose (75-110) mg/dl Lactate (0.7-2.1) mmol/L FiO2 % Potassium (3.6-5.0) mmol/L Carbon Dioxide (21-33) mmol/L Anion Gap (10-20) BUN (7-21) mg/dL Creatinine (0.5-1.4) mg/dL Est GFR ( Amer) Est GFR (Non-Af Amer) POC Glucose (mg/dL) 311 H 304 H 312 H (65-110) mg/dL Random Glucose (70-110) mg/dL Calcium (8.4-10.5) mg/dL Magnesium (1.7-2.2) mg/dL Total Bilirubin (0.2-1.3) mg/dL AST (15-59) U/L ALT (7-56) U/L Alkaline Phosphatase (38-133) U/L Lactate Dehydrogenase (333-699) U/L Total Creatine Kinase (35-230) U/L Troponin I ng/mL Total Protein (5.8-8.3) g/dL Albumin (3.0-4.8) g/dL Globulin gm/dL Albumin/Globulin Ratio (1.1-1.8) Amylase (35-125) U/L Lipase (23-300) U/L Venous Blood Potassium (3.6-5.2) mmol/L 02/16/17 02/16/17 02/16/17 Range/Units 19:50 19:30 19:10 WBC (4.5-11.0) 10^3/ul RBC (3.5-6.1) 10^6/uL Hgb (14.0-18.0) gm/dL Hct (42.0-52.0) % MCV (80.0-105.0) fL MCH (25.0-35.0) pg MCHC (31.0-37.0) g/dl RDW (11.5-14.5) % Plt Count (120.0-450.0) 10^3/uL MPV (7.0-11.0) fl Gran % (50.0-68.0) % Lymph % (Auto) (22.0-35.0) % [facility] % (Auto) (1.0-6.0) % Eos % (Auto) (1.5-5.0) % Baso % (Auto) (0.0-3.0) % Gran # (1.4-6.5) Lymph # (1.2-3.4) [facility] # (0.1-0.6) Eos # (0.0-0.7) Baso # (0.0-2.0) K/mm3 pO2 22 L (30-55) mm/Hg VBG pH 7.23 L (7.32-7.43) VBG pCO2 49.0 (40-60) VBG HCO3 20.5 L (21-28) mmol/l VBG Total CO2 22.0 (22-28) mmol.L VBG O2 Sat (Calc) 42.7 (40-65) % VBG Base Excess -7.1 L (0.0-2.0) mmol/L VBG Potassium 5.6 H (3.6-5.2) mmol/L Sodium 134.0 134 (132-148) mmol/L Chloride 107.0 105 (98-107) mmol/L Glucose 337 H (75-110) mg/dl Lactate 2.8 H (0.7-2.1) mmol/L FiO2 21.0 % Potassium 4.6 (3.6-5.0) mmol/L Carbon Dioxide 19 L (21-33) mmol/L Anion Gap 15 (10-20) BUN 34 H (7-21) mg/dL Creatinine 1.9 H (0.5-1.4) mg/dL Est GFR ( Amer) 42 Est GFR (Non-Af Amer) 35 POC Glucose (mg/dL) 294 H (65-110) mg/dL Random Glucose 280 H (70-110) mg/dL Calcium 8.3 L (8.4-10.5) mg/dL Magnesium 2.1 (1.7-2.2) mg/dL Total Bilirubin (0.2-1.3) mg/dL AST (15-59) U/L ALT (7-56) U/L Alkaline Phosphatase (38-133) U/L Lactate Dehydrogenase 344 (333-699) U/L Total Creatine Kinase 87 (35-230) U/L Troponin I < 0.01 ng/mL Total Protein (5.8-8.3) g/dL Albumin (3.0-4.8) g/dL Globulin gm/dL Albumin/Globulin Ratio (1.1-1.8) Amylase 210 H (35-125) U/L Lipase 159 (23-300) U/L Venous Blood Potassium 5.6 H (3.6-5.2) mmol/L 02/16/17 02/16/17 02/16/17 Range/Units 18:04 15:59 15:02 WBC (4.5-11.0) 10^3/ul RBC (3.5-6.1) 10^6/uL Hgb (14.0-18.0) gm/dL Hct (42.0-52.0) % MCV (80.0-105.0) fL MCH (25.0-35.0) pg MCHC (31.0-37.0) g/dl RDW (11.5-14.5) % Plt Count (120.0-450.0) 10^3/uL MPV (7.0-11.0) fl Gran % (50.0-68.0) % Lymph % (Auto) (22.0-35.0) % [facility] % (Auto) (1.0-6.0) % Eos % (Auto) (1.5-5.0) % Baso % (Auto) (0.0-3.0) % Gran # (1.4-6.5) Lymph # (1.2-3.4) [facility] # (0.1-0.6) Eos # (0.0-0.7) Baso # (0.0-2.0) K/mm3 pO2 (30-55) mm/Hg VBG pH (7.32-7.43) VBG pCO2 (40-60) VBG HCO3 (21-28) mmol/l VBG Total CO2 (22-28) mmol.L VBG O2 Sat (Calc) (40-65) % VBG Base Excess (0.0-2.0) mmol/L VBG Potassium (3.6-5.2) mmol/L Sodium (132-148) mmol/L Chloride (98-107) mmol/L Glucose (75-110) mg/dl Lactate (0.7-2.1) mmol/L FiO2 % Potassium (3.6-5.0) mmol/L Carbon Dioxide (21-33) mmol/L Anion Gap (10-20) BUN (7-21) mg/dL Creatinine (0.5-1.4) mg/dL Est GFR ( Amer) Est GFR (Non-Af Amer) POC Glucose (mg/dL) 205 H 114 H 141 H (65-110) mg/dL Random Glucose (70-110) mg/dL Calcium (8.4-10.5) mg/dL Magnesium (1.7-2.2) mg/dL Total Bilirubin (0.2-1.3) mg/dL AST (15-59) U/L ALT (7-56) U/L Alkaline Phosphatase (38-133) U/L Lactate Dehydrogenase (333-699) U/L Total Creatine Kinase (35-230) U/L Troponin I ng/mL Total Protein (5.8-8.3) g/dL Albumin (3.0-4.8) g/dL Globulin gm/dL Albumin/Globulin Ratio (1.1-1.8) Amylase (35-125) U/L Lipase (23-300) U/L Venous Blood Potassium (3.6-5.2) mmol/L 02/16/17 02/16/17 02/16/17 Range/Units 15:00 15:00 13:41 WBC (4.5-11.0) 10^3/ul RBC (3.5-6.1) 10^6/uL Hgb (14.0-18.0) gm/dL Hct (42.0-52.0) % MCV (80.0-105.0) fL MCH (25.0-35.0) pg MCHC (31.0-37.0) g/dl RDW (11.5-14.5) % Plt Count (120.0-450.0) 10^3/uL MPV (7.0-11.0) fl Gran % (50.0-68.0) % Lymph % (Auto) (22.0-35.0) % [facility] % (Auto) (1.0-6.0) % Eos % (Auto) (1.5-5.0) % Baso % (Auto) (0.0-3.0) % Gran # (1.4-6.5) Lymph # (1.2-3.4) [facility] # (0.1-0.6) Eos # (0.0-0.7) Baso # (0.0-2.0) K/mm3 pO2 23 L (30-55) mm/Hg VBG pH 7.19 L* (7.32-7.43) VBG pCO2 56.0 (40-60) VBG HCO3 21.4 (21-28) mmol/l VBG Total CO2 23.1 (22-28) mmol.L VBG O2 Sat (Calc) 46.5 (40-65) % VBG Base Excess -7.2 L (0.0-2.0) mmol/L VBG Potassium 3.5 L (3.6-5.2) mmol/L Sodium 136.0 137 (132-148) mmol/L Chloride 107.0 105 (98-107) mmol/L Glucose 48 L (75-110) mg/dl Lactate 3.1 H (0.7-2.1) mmol/L FiO2 21.0 % Potassium 3.6 (3.6-5.0) mmol/L Carbon Dioxide 21 (21-33) mmol/L Anion Gap 15 (10-20) BUN 41 H (7-21) mg/dL Creatinine 1.8 H (0.5-1.4) mg/dL Est GFR ( Amer) 45 Est GFR (Non-Af Amer) 37 POC Glucose (mg/dL) 222 H (65-110) mg/dL Random Glucose 52 L (70-110) mg/dL Calcium 9.3 (8.4-10.5) mg/dL Magnesium (1.7-2.2) mg/dL Total Bilirubin (0.2-1.3) mg/dL AST (15-59) U/L ALT (7-56) U/L Alkaline Phosphatase (38-133) U/L Lactate Dehydrogenase 351 (333-699) U/L Total Creatine Kinase 77 (35-230) U/L Troponin I < 0.01 ng/mL Total Protein (5.8-8.3) g/dL Albumin (3.0-4.8) g/dL Globulin gm/dL Albumin/Globulin Ratio (1.1-1.8) Amylase (35-125) U/L Lipase (23-300) U/L Venous Blood Potassium 3.5 L (3.6-5.2) mmol/L /16/17 Range/Units 13:15 WBC (4.5-11.0) 10^3/ul RBC (3.5-6.1) 10^6/uL Hgb (14.0-18.0) gm/dL Hct (42.0-52.0) % MCV (80.0-105.0) fL MCH (25.0-35.0) pg MCHC (31.0-37.0) g/dl RDW (11.5-14.5) % Plt Count (120.0-450.0) 10^3/uL MPV (7.0-11.0) fl Gran % (50.0-68.0) % Lymph % (Auto) (22.0-35.0) % [facility] % (Auto) (1.0-6.0) % Eos % (Auto) (1.5-5.0) % Baso % (Auto) (0.0-3.0) % Gran # (1.4-6.5) Lymph # (1.2-3.4) [facility] # (0.1-0.6) Eos # (0.0-0.7) Baso # (0.0-2.0) K/mm3 pO2 (30-55) mm/Hg VBG pH (7.32-7.43) VBG pCO2 (40-60) VBG HCO3 (21-28) mmol/l VBG Total CO2 (22-28) mmol.L VBG O2 Sat (Calc) (40-65) % VBG Base Excess (0.0-2.0) mmol/L VBG Potassium (3.6-5.2) mmol/L Sodium (132-148) mmol/L Chloride (98-107) mmol/L Glucose (75-110) mg/dl Lactate (0.7-2.1) mmol/L FiO2 % Potassium (3.6-5.0) mmol/L Carbon Dioxide (21-33) mmol/L Anion Gap (10-20) BUN (7-21) mg/dL Creatinine (0.5-1.4) mg/dL Est GFR ( Amer) Est GFR (Non-Af Amer) POC Glucose (mg/dL) 75 (65-110) mg/dL Random Glucose (70-110) mg/dL Calcium (8.4-10.5) mg/dL Magnesium (1.7-2.2) mg/dL Total Bilirubin (0.2-1.3) mg/dL AST (15-59) U/L ALT (7-56) U/L Alkaline Phosphatase (38-133) U/L Lactate Dehydrogenase (333-699) U/L Total Creatine Kinase (35-230) U/L Troponin I ng/mL Total Protein (5.8-8.3) g/dL Albumin (3.0-4.8) g/dL Globulin gm/dL Albumin/Globulin Ratio (1.1-1.8) Amylase (35-125) U/L Lipase (23-300) U/L Venous Blood Potassium (3.6-5.2) mmol/L Laboratory Results - last 24 hr 02/16/17 02/16/17 02/16/17 13:15 13:41 15:00 WBC RBC Hgb Hct MCV MCH MCHC RDW Plt Count MPV Gran % Lymph % (Auto) [facility] % (Auto) Eos % (Auto) Baso % (Auto) Gran # Lymph # [facility] # Eos # Baso # pO2 VBG pH VBG pCO2 VBG HCO3 VBG Total CO2 VBG O2 Sat (Calc) VBG Base Excess VBG Potassium Sodium 137 Chloride 105 Glucose Lactate FiO2 Potassium 3.6 Carbon Dioxide 21 Anion Gap 15 BUN 41 H Creatinine 1.8 H Est GFR ( Amer) 45 Est GFR (Non-Af Amer) 37 POC Glucose (mg/dL) 75 222 H Random Glucose 52 L Calcium 9.3 Magnesium Total Bilirubin AST ALT Alkaline Phosphatase Lactate Dehydrogenase 351 Total Creatine Kinase 77 Troponin I < 0.01 Total Protein Albumin Globulin Albumin/Globulin Ratio Amylase Lipase Venous Blood Potassium 02/16/17 02/16/17 02/16/17 15:00 15:02 15:59 WBC RBC Hgb Hct MCV MCH MCHC RDW Plt Count MPV Gran % Lymph % (Auto) [facility] % (Auto) Eos % (Auto) Baso % (Auto) Gran # Lymph # [facility] # Eos # Baso # pO2 23 L VBG pH 7.19 L* VBG pCO2 56.0 VBG HCO3 21.4 VBG Total CO2 23.1 VBG O2 Sat (Calc) 46.5 VBG Base Excess -7.2 L VBG Potassium 3.5 L Sodium 136.0 Chloride 107.0 Glucose 48 L Lactate 3.1 H FiO2 21.0 Potassium Carbon Dioxide Anion Gap BUN Creatinine Est GFR ( Amer) Est GFR (Non-Af Amer) POC Glucose (mg/dL) 141 H 114 H Random Glucose Calcium Magnesium Total Bilirubin AST ALT Alkaline Phosphatase Lactate Dehydrogenase Total Creatine Kinase Troponin I Total Protein Albumin Globulin Albumin/Globulin Ratio Amylase Lipase Venous Blood Potassium 3.5 L 02/16/17 02/16/17 02/16/17 18:04 19:10 19:30 WBC RBC Hgb Hct MCV MCH MCHC RDW Plt Count MPV Gran % Lymph % (Auto) [facility] % (Auto) Eos % (Auto) Baso % (Auto) Gran # Lymph # [facility] # Eos # Baso # pO2 VBG pH VBG pCO2 VBG HCO3 VBG Total CO2 VBG O2 Sat (Calc) VBG Base Excess VBG Potassium Sodium 134 Chloride 105 Glucose Lactate FiO2 Potassium 4.6 Carbon Dioxide 19 L Anion Gap 15 BUN 34 H Creatinine 1.9 H Est GFR ( Amer) 42 Est GFR (Non-Af Amer) 35 POC Glucose (mg/dL) 205 H 294 H Random Glucose 280 H Calcium 8.3 L Magnesium 2.1 Total Bilirubin AST ALT Alkaline Phosphatase Lactate Dehydrogenase 344 Total Creatine Kinase 87 Troponin I < 0.01 Total Protein Albumin Globulin Albumin/Globulin Ratio Amylase 210 H Lipase 159 Venous Blood Potassium 02/16/17 02/16/17 02/16/17 19:50 20:00 21:03 WBC RBC Hgb Hct MCV MCH MCHC RDW Plt Count MPV Gran % Lymph % (Auto) [facility] % (Auto) Eos % (Auto) Baso % (Auto) Gran # Lymph # [facility] # Eos # Baso # pO2 22 L VBG pH 7.23 L VBG pCO2 49.0 VBG HCO3 20.5 L VBG Total CO2 22.0 VBG O2 Sat (Calc) 42.7 VBG Base Excess -7.1 L VBG Potassium 5.6 H Sodium 134.0 Chloride 107.0 Glucose 337 H Lactate 2.8 H FiO2 21.0 Potassium Carbon Dioxide Anion Gap BUN Creatinine Est GFR ( Amer) Est GFR (Non-Af Amer) POC Glucose (mg/dL) 312 H 304 H Random Glucose Calcium Magnesium Total Bilirubin AST ALT Alkaline Phosphatase Lactate Dehydrogenase Total Creatine Kinase Troponin I Total Protein Albumin Globulin Albumin/Globulin Ratio Amylase Lipase Venous Blood Potassium 5.6 H 02/16/17 02/16/17 02/16/17 21:57 22:57 23:30 WBC RBC Hgb Hct MCV MCH MCHC RDW Plt Count MPV Gran % Lymph % (Auto) [facility] % (Auto) Eos % (Auto) Baso % (Auto) Gran # Lymph # [facility] # Eos # Baso # pO2 20 L VBG pH 7.21 L VBG pCO2 52.0 VBG HCO3 20.8 L VBG Total CO2 22.4 VBG O2 Sat (Calc) 39.2 L VBG Base Excess -7.2 L VBG Potassium Sodium Chloride 110.0 H Glucose 223 H Lactate 1.9 FiO2 21 Potassium Carbon Dioxide Anion Gap BUN Creatinine Est GFR ( Amer) Est GFR (Non-Af Amer) POC Glucose (mg/dL) 311 H 274 H Random Glucose Calcium Magnesium Total Bilirubin AST ALT Alkaline Phosphatase Lactate Dehydrogenase Total Creatine Kinase Troponin I Total Protein Albumin Globulin Albumin/Globulin Ratio Amylase Lipase Venous Blood Potassium 02/17/17 02/17/17 02/17/17 00:12 00:45 01:05 WBC RBC Hgb Hct MCV MCH MCHC RDW Plt Count MPV Gran % Lymph % (Auto) [facility] % (Auto) Eos % (Auto) Baso % (Auto) Gran # Lymph # [facility] # Eos # Baso # pO2 VBG pH VBG pCO2 VBG HCO3 VBG Total CO2 VBG O2 Sat (Calc) VBG Base Excess VBG Potassium Sodium 134 Chloride 109 H Glucose Lactate FiO2 Potassium 4.8 Carbon Dioxide 20 L Anion Gap 10 BUN 29 H Creatinine 1.6 H Est GFR ( Amer) 51 Est GFR (Non-Af Amer) 42 POC Glucose (mg/dL) 240 H 254 H Random Glucose 200 H Calcium 8.3 L Magnesium 2.0 Total Bilirubin AST ALT Alkaline Phosphatase Lactate Dehydrogenase Total Creatine Kinase Troponin I Total Protein Albumin Globulin Albumin/Globulin Ratio Amylase Lipase Venous Blood Potassium 02/17/17 02/17/17 02/17/17 02:03 03:09 04:15 WBC RBC Hgb Hct MCV MCH MCHC RDW Plt Count MPV Gran % Lymph % (Auto) [facility] % (Auto) Eos % (Auto) Baso % (Auto) Gran # Lymph # [facility] # Eos # Baso # pO2 VBG pH VBG pCO2 VBG HCO3 VBG Total CO2 VBG O2 Sat (Calc) VBG Base Excess VBG Potassium Sodium Chloride Glucose Lactate FiO2 Potassium Carbon Dioxide Anion Gap BUN Creatinine Est GFR ( Amer) Est GFR (Non-Af Amer) POC Glucose (mg/dL) 227 H 247 H 225 H Random Glucose Calcium Magnesium Total Bilirubin AST ALT Alkaline Phosphatase Lactate Dehydrogenase Total Creatine Kinase Troponin I Total Protein Albumin Globulin Albumin/Globulin Ratio Amylase Lipase Venous Blood Potassium 02/17/17 02/17/17 02/17/17 05:00 05:00 05:12 WBC 4.2 L RBC 3.71 Hgb 11.4 L Hct 32.2 L MCV 86.8 MCH 30.7 MCHC 35.4 RDW 12.1 Plt Count 143 MPV 11.1 H Gran % 71.3 H Lymph % (Auto) 19.[address] [facility] % (Auto) 5.4 Eos % (Auto) 3.3 Baso % (Auto) 0.2 Gran # 3.02 Lymph # 0.[address] [facility] # 0.2 Eos # 0.1 Baso # 0.01 pO2 VBG pH VBG pCO2 VBG HCO3 VBG Total CO2 VBG O2 Sat (Calc) VBG Base Excess VBG Potassium Sodium 136 Chloride 110 H Glucose Lactate FiO2 Potassium 4.9 Carbon Dioxide 20 L Anion Gap 11 BUN 25 H Creatinine 1.6 H Est GFR ( Amer) 51 Est GFR (Non-Af Amer) 42 POC Glucose (mg/dL) 249 H Random Glucose 231 H Calcium 8.2 L Magnesium 2.0 Total Bilirubin 0.5 AST 32 ALT 43 Alkaline Phosphatase 56 Lactate Dehydrogenase Total Creatine Kinase Troponin I Total Protein 5.8 Albumin 3.1 Globulin 2.7 Albumin/Globulin Ratio 1.1 Amylase 166 H Lipase 76 Venous Blood Potassium 02/17/17 06:05 WBC RBC Hgb Hct MCV MCH MCHC RDW Plt Count MPV Gran % Lymph % (Auto) [facility] % (Auto) Eos % (Auto) Baso % (Auto) Gran # Lymph # [facility] # Eos # Baso # pO2 VBG pH VBG pCO2 VBG HCO3 VBG Total CO2 VBG O2 Sat (Calc) VBG Base Excess VBG Potassium Sodium Chloride Glucose Lactate FiO2 Potassium Carbon Dioxide Anion Gap BUN Creatinine Est GFR ( Amer) Est GFR (Non-Af Amer) POC Glucose (mg/dL) 257 H Random Glucose Calcium Magnesium Total Bilirubin AST ALT Alkaline Phosphatase Lactate Dehydrogenase Total Creatine Kinase Troponin I Total Protein Albumin Globulin Albumin/Globulin Ratio Amylase Lipase Venous Blood Potassium Critical Care Progress Note - Nutrition Nutrition: Nutrition Category Date Time Status Heart Healthy Diet [DIET] Diets 02/16/17 Dinner Ordered Attending/Attestation - Attestation I have personally seen and examined this patient.: Yes I have fully participated in the care of the patient.: Yes I have reviewed all pertinent clinical information: Yes Notes (Text): 02/17/17 13:37 76 y/o M w/ DKA HHNK Uncontrolled DM Needs endocrine consult for follow up and management on Insulin. HGa1c pending to determine possible insuling sq. vs P.O Currently AG closed, BS improved, tolerating diet . Levemir bid plus ISS. Plan to keep 140-180 bs. Need neurontin for DN. Chronic alcohol use w/ chronic pancreatitis on CT dvtp ppi cc time 65 min
[2017-02-17] MEDS: Metoprolol Succinate 25 mg XL Tab PO SCH (10:33)
[2017-02-17] MEDS ORDERED: Insulin Lispro (humaLOG) MEDIUM Coverage SC SCH (11:30)
[2017-02-17] MEDS: Insulin Lispro (humaLOG) MEDIUM Coverage SC SCH ×3 (11:30→21:36)
[2017-02-17] MEDS: Insulin Lispro 1 UNITS/0.01 ML SC SCH ×2 (12:43→16:39)
[2017-02-17 14:14] LABS: CALCIUM 8.2 mg/dL (8.4-10.5); MAGNESIUM 1.9 mg/dL (1.7-2.2); POTASSIUM 5.1 mmol/L (3.6-5.0)
--- NOTE | 2017-02-17 16:13 | CARD ---
APPROVED REPORT EKG Measurement Heart [id number] <Conclusion> Normal sinus rhythm Normal ECG
--- NOTE | 2017-02-17 16:18 | HP ---
HISTORY OF PRESENT ILLNESS: The patient is a 76-year-old black male patient of Dr. Rivas, who came t o Emergency Room yesterday, because he was having generalized weakness that has recently increased a lot. He was found to have high blood sugar. They gwen blood in Dr. Rivas's office and blood sugar w as found to be 711. They advised him to come to Emergency Room for further evaluation. The patient does complain of having generalized weakness, difficulty walking. The patient is not a very good his navneet; however, denies any nausea, no vomiting, no fever, no chills, no dizziness. PAST MEDICAL HISTORY: Significant for: 1. Insulin-dependent diabetes. 2. Hyperlipidemia. 3. Gastroesophageal reflux disease. 4. Hypertension. 5. Recently diagnosed CA prostate and was having external radiation. According to , the patient , the last treatment was last week. ALLERGIES: He is not allergic to any medication. MEDICATIONS AT HOME: He is on metformin 500 twice a day, amlodipine 10 mg daily, simvastatin 20 mg d ail, metoprolol 25 daily, gabapentin 300 at bedtime. SOCIAL HISTORY: He is , lives with his . He used to be heavy smoker in the past, used to 1 pack per day for more than 30 years, quit in 1995. REVIEW OF SYSTEMS: Generalized weakness and difficulty walking. PHYSICAL EXAMINATION: GENERAL: He is awake and alert, communicative. VITAL SIGNS: He is afebrile, pulse 60, respirations 15, blood pressure 137/66. LUNGS: Bilateral fair airflow, no rhonchi or crackle. HEART: S1, S2 audible. ABDOMEN: Soft, nontender, no rebound, no guarding. NEUROLOGIC: He is awake and alert, communicative. Moves all extremities. LABORATORY DATA: WBC is 4.2, hemoglobin , hematocrit 32, platelet 143. Chemistry: Sodium 136, potassium 4.9, chloride 110, CO2 of 20, BUN 25, creatinine 1.6, blood sugar of 257. Amylase is ____ _. Urinalysis is unremarkable. Urine drug screen is negative. ASSESSMENT AND PLAN: A CT scan of the abdomen and pelvis has no acute intracranial abdominal finding he has hemorrhagic cyst in the left kidney. ASSESSMENT: 1. Uncontrolled diabetes. 2. Hyperglycemia. 3. Generalized weakness. 4. CA prostate, status post external radiation therapy. 5. Hypertension. 6. Hyperlipidemia. PLAN: The insulin drip has been discontinued. He has been started on Levemir 20 units at bedtime. He is on gabapentin 300 at bedtime. He is on amlodipine 10 mg daily. He is on IV fluids. Dr. Funmilayo Saucedo is following the patient and will follow up CBC, CMP in a.m. Physical therapy evaluation has be en requested. Willem Schreiber MD cc: [id number] TT: 02/17/2017 16:18:11 mn
--- NOTE | 2017-02-17 19:37 | CON ---
DATE: 02/17/2017 LOCATION: [facility]U 128, room 6. HISTORY OF PRESENT ILLNESS: This is a 76-year-old male with known history of type 2 diabetes and hyp ertension with ongoing radiation therapy for prostate carcinoma who presents to his primary physician with generalized body weakness and supervening hyperglycemic accelerations with a glucose level of 7 11 mg/dL, prompting this emergent admission and is being referred now for diabetic evaluation and man agement. PAST MEDICAL HISTORY: As mentioned above, history of type 2 diabetes, currently on metformin taken a s 500 mg b.i.d. and has missed a few doses in the last few weeks prior to admission, history of hyper tension and dyslipidemia, history of chronic gastritis and GERD, history of prostate carcinoma curren tly with ongoing radiation therapy as noted. FAMILY HISTORY: Positive for hypertension and diabetes. SOCIAL HISTORY: Admits to chronic alcoholism with recent alcoholic intoxication. No other known sub stance use. He has a supportive family otherwise. REVIEW OF SYSTEMS: As mentioned above, admits to generalized body weakness with easy fatigability an d tiredness and suboptimal energy level. Also admits to dizziness and lightheadedness, worse on the day of admission with bifrontal headaches and visual blurring as noted. No chest pains or palpitatio ns or PNDs. His oral intake has been variable with occasional nausea and dyspepsia and vague upper a bdominal pains. Also admits to progressively worsening polyuria and nocturia as noted with about a 5 -pound or so weight loss. PHYSICAL EXAMINATION: GENERAL: This is an average built male in no apparent distress. VITAL SIGNS: Blood pressure of 150/90, pulse of 80 beats per minute, regular, temperature 98, respir ations 20. Height is 5 feet 9, weight is 145 pounds. HEENT: Head normocephalic. Eyes anicteric with pink conjunctivae. Fundoscopy not possible at this time. Ears, nose and throat otherwise normal. NECK: Supple. Thyroid gland is normal size. No carotid bruits. No cervical adenopathy. CARDIOPULMONARY: An adynamic precordium. S1, S2 is rapid and regular. LUNGS: Clear to auscultation. ABDOMEN: Flat, soft with positive bowel sounds. EXTREMITIES: No peripheral edema. Pulses are +2 bilaterally. LABORATORY DATA: The hematology, CBC: WBC is 3.8, hemoglobin of 12.8, hematocrit of 36, MCV 87, loni telets 163. Chemistry initially showed a BUN of 48, sodium 119, potassium 4.6, chloride 88, CO2 21, glucose 895, and creatinine 2.2. His hemoglobin A1c is 13.6%, which is quite elevated and indicative of suboptimal metabolic control of his diabetic condition, even prior to this admission. The subseq uent LDH is 411. The subsequent glucose levels have ranged from 247-304 and 311 mg/dL. The CO2 this morning was 20 with a sodium of 134, potassium 4.8, chloride 109, glucose 200 and creatinine 1.6. ASSESSMENT: This is a 76-year-old male with uncontrolled and decompensated type 2 insulin-requiring diabetes, presenting here with hyperosmolar, hyperglycemic state and dehydration with prerenal azotem ia and spurious hyponatremia. PLAN OF MANAGEMENT: As noted above, he was initially placed on intensive insulin therapy with an ins ulin drip infusion and has since then been taken off the above and with ongoing vigorous IV hydration as given. We will initiate basal and bolus insulin regimen, which is more physiologic to reduce the glucose toxicity as noted above and will titrate his insulin dose regimen on a day-to-day basis to o ptimize metabolic control. We will start with Humalog given as 6 units subQ t.i.d. before meals and as his oral intake improves, we will titrate to 12 units subQ t.i.d. as indicated. We will also add basal insulin with Levemir to be given as 20 units subQ at bedtime daily to start tonight as ordered. We will modify the coverage scale to obviate hypoglycemia and detailed orders have been given. We will obtain serial chemistries and supplement accordingly as needed. We will also initiate diabetic education and dietary instructions to include insulin self-administration as he most likely will be g oi home on insulin therapy. We will follow and advise accordingly. Funmilayo Saucedo MD cc: [id number] TT: 02/17/2017 19:36:27 Confirmation # [id number] Dictation # [id number] brad
[2017-02-17] MEDS ORDERED: Insulin Detemir 100 units/ml Vial (Levemir) SC SCH ×2 (22:00)
[2017-02-18] MEDS: Morphine 2 mg/ml ISec IM PRN (05:09)
[2017-02-18 05:10] LABS: ADD MANUAL DIFF? NO
[2017-02-18 05:13] LABS: BASO # 0.01 K/mm3 (0.0-2.0); BASO % 0.2 % (0.0-3.0); EOS # 0.2 (0.0-0.7); EOS % 4.1 % (1.5-5.0); GRAN # 2.89 (1.4-6.5); GRAN % 65.2 % (50.0-68.0); HEMATOCRIT 35.2 % (42.0-52.0); LYMPH # 1.1 (1.2-3.4); LYMPH % 24.4 % (22.0-35.0); MEAN CELL VOLUME 87.8 fL (80.0-105.0); MEAN CORPUSCULAR HEMOGLOBIN 30.9 pg (25.0-35.0); MEAN CORPUSCULAR HGB CONC 35.2 g/dl (31.0-37.0); MEAN PLATELET VOLUME 10.7 fl (7.0-11.0); MONO # 0.3 (0.1-0.6); MONO % 6.1 % (1.0-6.0); PLATELET COUNT 149 10^3/uL (120.0-450.0); RED CELL DISTRIBUTION WIDTH 12.5 % (11.5-14.5); WHITE BLOOD COUNT 4.4 10^3/ul (4.5-11.0)
[2017-02-18] MEDS: Sodium Chloride 0.9% 1,000 ML IV SCH ×2 (05:15→17:32)
[2017-02-18 05:48] LABS: ALB/GLOB RATIO 1.2 (1.1-1.8); ALKALINE PHOSPHATASE 57 U/L (38-133); ALT/SGPT 47 U/L (7-56); AST/SGOT 42 U/L (15-59); BILIRUBIN,TOTAL 0.4 mg/dL (0.2-1.3); BLOOD UREA NITROGEN 18 mg/dL (7-21); CALCIUM 8.9 mg/dL (8.4-10.5); CARBON DIOXIDE 20 mmol/L (21-33); CHLORIDE 113 mmol/L (98-107); CHOLESTEROL 110 mg/dL (130-200); GFR AFRICAN-AMERICAN > 60; GLUCOSE,RANDOM 139 mg/dL (70-110); POTASSIUM 4.8 mmol/L (3.6-5.0); SODIUM 141 mmol/L (132-148); TOTAL PROTEIN 6.4 g/dL (5.8-8.3)
--- NOTE | 2017-02-18 07:40 | CP.PCM.PN ---
Subjective - Date & Time of Evaluation Date of Evaluation: 02/18/17 Time of Evaluation: 07:38 - Subjective Subjective: ICU Progress Note Patient seen and examined at bedside. There were no acute overnight events. Patient reports having some LUQ abdominal pain that is worse with movement. He is passing gas and had a BM last night. He denies n/v/d, numbness/tingling, fever/chills, CP, or SOB. Objective - Vital Signs/Intake and Output Vital Signs (last 24 hours): Temp Pulse Resp BP Pulse Ox 97.9 F 58 L 16 128/118 H 89 L 02/17/17 20:00 02/18/17 06:00 02/18/17 06:00 02/18/17 06:00 02/18/17 06:00 Intake and Output: 02/18/17 02/18/17 06:59 18:59 Intake Total 2000 Output Total 1100 Balance 900 - Medications Medications: Current Medications Amlodipine Besylate (Norvasc) 10 mg PO DAILY [facility] Last Admin: 02/17/17 10:32 Dose: 10 mg Gabapentin (Neurontin) 300 mg PO [facility] PRN Reason: Protocol Last Admin: 02/17/17 21:37 Dose: 300 mg Sodium Chloride (Sodium Chloride 0.9%) 1,000 mls @ 150 mls/hr IV .Q6H40M [facility] Last Admin: 02/18/17 05:15 Dose: 150 mls/hr Insulin Detemir (Levemir) 20 unit SC [facility] Last Admin: 02/17/17 21:37 Dose: 20 unit Insulin Human Lispro (Humalog Med) 0 units SC [facility] PRN Reason: Protocol Last Admin: 02/17/17 21:36 Dose: Not Given Insulin Human Lispro (Humalog) 12 units SC AC [facility] Metoprolol Succinate (Toprol Xl) 25 mg PO DAILY [facility] Last Admin: 02/17/17 10:33 Dose: 25 mg Morphine Sulfate (Morphine) 1 mg IM Q4H PRN PRN Reason: Pain, moderate (4-7) Last Admin: 02/18/17 05:09 Dose: 1 mg - Labs Labs: 02/18/17 05:00 02/18/17 05:00 - Constitutional Appears: No Acute Distress - Head Exam Head Exam: ATRAUMATIC, NORMAL INSPECTION, NORMOCEPHALIC - Eye Exam Eye Exam: Normal appearance, PERRL Pupil Exam: NORMAL ACCOMODATION, PERRL - ENT Exam ENT Exam: Mucous Membranes Moist - Respiratory Exam Respiratory Exam: Clear to Ausculation Bilateral, NORMAL BREATHING PATTERN. absent: Rales, Rhonchi, Wheezes - Cardiovascular Exam Cardiovascular Exam: REGULAR RHYTHM, +S1, +S2. absent: Gallop, Rubs, Murmur - GI/Abdominal Exam GI & Abdominal Exam: Guarding, Soft, Tenderness (LUQ tenderness ), Normal Bowel Sounds. absent: Rigid, Mass, Rebound - Extremities Exam Extremities Exam: Normal Inspection. absent: Calf Tenderness, Pedal Edema - Neurological Exam Neurological Exam: Alert, Awake, CN II-XII Intact, Oriented x3 - Psychiatric Exam Psychiatric exam: Normal Affect, Normal Mood - Skin Skin Exam: Dry, Intact, Normal Color, Warm Assessment and Plan - Assessment and Plan (Free Text) Assessment: This is a 76Y M with PMH of DM, HTN, alcoholism, prostate cancer and medication noncomplicance here for HHS, which has now resolved and chronic pancreatitis seen on CT. Plan: Neuro: A&O x 3, Maintain normothermia CV: HD stable at this time Maintain MAP >65 Resp: Comfortable on room air Maintain spO2>90% GI: Chronic pancreatitis on CT Continue NS@150ml Continue to monitor I&O Tolerating diet Neprho: DELFINO resolved Continue to monitor electrolytes and replace as needed. Heme: Hgb stable - no overt signs of bleeding Continue to monitor CBC ID: Afebrile, no leukocytosis Continue to monitor Endo: HHNK resolved- Anion gap closed On SC insulin, plus ISS coverage Continue to monitor Maintain euglycemia Endo consulted-recs appreciated GI ppx: PTX DVT ppx: SCDs Dispo: Patient is stable and will be transferred. Case seen, discussed and reviewed with attending. Melissa Lema PGY1
[2017-02-18] MEDS: Insulin Lispro 1 UNITS/0.01 ML SC SCH ×3 (11:32→16:35)
[2017-02-18] MEDS: Insulin Lispro (humaLOG) MEDIUM Coverage SC SCH ×4 (11:32→22:15)
[2017-02-18] MEDS: Metoprolol Succinate 25 mg XL Tab PO SCH (11:34)
--- NOTE | 2017-02-18 14:08 | PN ---
DATE: 02/18/2017 SUBJECTIVE: The patient is 76 years old, seen and examined. PHYSICAL EXAMINATION: GENERAL: Awake, alert, oriented, communicative. VITAL SIGNS: The patient is afebrile, pulse 86, respirations 16, blood pressure 164/83. LUNGS: Bilateral fair airflow, no rhonchi or crackle. HEART: S1, S2 audible. ABDOMEN: Soft, nontender, no rebound, no guarding. NEUROLOGIC: He is awake and alert, able to communicate, wants to ambulate with a walker. LABORATORY EXAMINATION: WBC 4.4, hemoglobin 12.4, hematocrit 35.2, platelet of 149. Chemistry: Sod ium 141, potassium 4.8, chloride 113, CO2 of 20, BUN 18, creatinine 1.2, blood sugar 139. ASSESSMENT: 1. Status post hyperglycemia. 2. Generalized weakness. 3. Insulin-dependent diabetes. 4. Peptic ulcer disease. 5. History of cancer prostate, status post external radiation. PLAN: The patient is clinically stable. He can be transferred to med/surg. Encourage ambulation. If patient remains stable, he can be discharged home in a.m. Willem Schreiber MD cc: [phone] TT: 02/18/2017 14:07:24 Confirmation # [id number] Dictation # [id number] antonio
--- NOTE | 2017-02-18 14:36 | PN ---
DATE: 02/18/2017 LOCATION: [facility], room 6. This is a 76-year-old male with recent uncontrolled____ diabetes, presented here with hyperosmolar, h yperglycemic state ____. The latest chemistries show a BUN of 18, sodium 141, potassium 4.8, chlorid e 113, CO2 of 20, glucose 139 and creatinine 1.2. So, at this time, we will continue the modified basal and bolus insulin regimen and increase the Jeannette log to 12 units subQ t.i.d. before meals to start today as ordered. We will continue the basal insul in given as Levemir at 20 units subQ at bedtime daily ____. We will titrate incrementally ____ to op timize ____. We will ____. We will also initiate ____ the patient's dietary instructions at the imani e of admission. We will consult our nurse educator, Ms. Geri Warner, who will teach the patient insulin self-administration. He admits to having used insulin syringes from years ago when he was in itially diagnosed with type 2 diabetes. We will obtain serial chemistries and supplement accordingly as needed and also ____ accordingly. Funmilayo Saucedo MD cc: [id number] TT: 02/18/2017 14:35:54 Confirmation # [id number] Dictation # [id number] dn
[2017-02-18] MEDS ORDERED: Insulin Detemir 100 units/ml Vial (Levemir) SC SCH (22:00)
[2017-02-19] MEDS: Morphine 2 mg/ml ISec IM PRN (04:03)
[2017-02-19] MEDS ORDERED: Pantoprazole 40 mg EC Tab PO SCH (06:00)
[2017-02-19 07:08] LABS: ADD MANUAL DIFF? NO
[2017-02-19 07:26] LABS: ALB/GLOB RATIO 1.2 (1.1-1.8); BASO # 0.01 K/mm3 (0.0-2.0); BASO % 0.2 % (0.0-3.0); BILIRUBIN,TOTAL 0.3 mg/dL (0.2-1.3); CALCIUM 8.8 mg/dL (8.4-10.5); EOS # 0.2 (0.0-0.7); EOS % 4.8 % (1.5-5.0); GRAN # 3.17 (1.4-6.5); GRAN % 65.5 % (50.0-68.0); HEMATOCRIT 32.4 % (42.0-52.0); LYMPH # 1.1 (1.2-3.4); LYMPH % 21.9 % (22.0-35.0); MEAN CELL VOLUME 87.8 fL (80.0-105.0); MEAN CORPUSCULAR HEMOGLOBIN 30.9 pg (25.0-35.0); MEAN CORPUSCULAR HGB CONC 35.2 g/dl (31.0-37.0); MEAN PLATELET VOLUME 11.3 fl (7.0-11.0); MONO # 0.4 (0.1-0.6); MONO % 7.6 % (1.0-6.0); PLATELET COUNT 156 10^3/uL (120.0-450.0); POTASSIUM 5.4 mmol/L (3.6-5.0); RED CELL DISTRIBUTION WIDTH 12.7 % (11.5-14.5); TOTAL PROTEIN 5.6 g/dL (5.8-8.3); WHITE BLOOD COUNT 4.8 10^3/ul (4.5-11.0)
[2017-02-19] MEDS: Insulin Lispro 1 UNITS/0.01 ML SC SCH ×2 (08:18→12:16)
[2017-02-19] MEDS: Insulin Lispro (humaLOG) MEDIUM Coverage SC SCH ×2 (08:19→12:16)
[2017-02-19 09:08] VITALS: RESP 20; TEMP 98; O2SAT 96
[2017-02-19] MEDS: Metoprolol Succinate 25 mg XL Tab PO SCH (10:07)
[2017-02-19 10:08] VITALS: BP 125/70; PULSE 62
--- NOTE | 2017-02-19 16:31 | PN ---
DATE: 02/19/2017 ROOM: 562. This is a 76-year-old male with recent uncontrolled type 2 insulin-requiring diabetes, presenting her e with hyperosmolar, hyperglycemic state and dehydration and was started on insulin therapy to optimi ze his metabolic control thereof. He was only on oral hypoglycemic therapy prior to this admission a nd used insulin remotely several years ago when initially diagnosed of type 2 diabetes. His glycemic levels are fluctuating, but much improved at this time and the latest chemistry showed a BUN of 18, sodium 136, potassium 5.4, chloride 111, CO2 21, glucose 167 and creatinine 1.4. At this time, would recommend the same combination of a basal and bolus insulin regimen for eventual discharge today as given. Will continue the Humalog given as 16 units subQ t.i.d. before meals and Levemir given as 24 units subQ at bedtime daily as given. We will titrate incrementally as indicated to optimize metabol ic control. We will follow. Funmilayo Saucedo MD cc: [phone] TT: 02/19/2017 16:31:22 Confirmation # [id number] Dictation # [id number] quiana
--- NOTE | 2017-02-20 08:37 | DS ---
This is a 76-year-old male who had come into the hospital with a nonketotic hyperosmolar condition. The patient had his diabetes better controlled with insulin. He was seen by endocrinology. He has n o complaints of any chest pain, no shortness of breath. He is eating better. PHYSICAL EXAMINATION: VITAL SIGNS: Temperature is 97.9, pulse of 86, blood pressure is 164/83, respirations 16, O2 saturat ion is 89%. GENERAL: The patient comfortable, in no acute distress. HEENT: Anicteric sclerae. Moist mucosa. NECK: No JVD or adenopathy. CARDIAC: S1/S2. No murmurs. No rubs. Regular. RESPIRATORY: Clear to auscultation bilaterally. No wheezes, rales, or rhonchi. Good air entry. ABDOMEN: Bowel sounds are positive, soft, nontender, and nondistended. EXTREMITIES: No edema. Has 1+ pulses. ASSESSMENT: 1. Diabetes type 2, uncontrolled, now improved. 2. Nonketotic hyperosmolar. 3. Peptic ulcer disease. 4. Diabetes type 2. 5. History of prostate cancer. PLAN: The patient is on lisinopril. This will be continued. He is on amlodipine for his hypertensi on. He is on Neurontin for his neuropathy. He is on Protonix. He is on a heart healthy diet. CONDITION: Stable. ACTIVITY: Increase as tolerated. Jama Cordero MD cc: [phone] TT: 02/19/2017 09:02:02 en
== END 2017-02-19 14:07 | disposition home or self-care (01) | DRG 638 ==
LOC: ED 08:12 → ERH 10:20 → CCU 13:48 → 5RNO 02-18 17:13
PROVIDERS: ADMIT Internal Medicine Nephrology; ATTEND Internal Medicine Nephrology
DX: E11.00 Type 2 diabetes mellitus with hyperosmolarity without nonketotic hyperglycemic-hyperosmolar coma (NKHHC) (principal); E87.1 Hypo-osmolality and hyponatremia; E11.65 Type 2 diabetes mellitus with hyperglycemia; K86.1 Other chronic pancreatitis; C61 Malignant neoplasm of prostate; E86.0 Dehydration; I10 Essential (primary) hypertension; K27.9 Peptic ulcer, site unspecified, unspecified as acute or chronic, without hemorrhage or perforation; E78.5 Hyperlipidemia, unspecified; K21.9 Gastro-esophageal reflux disease without esophagitis; N28.1 Cyst of kidney, acquired; Z87.891 Personal history of nicotine dependence; Z79.84 Long term (current) use of oral hypoglycemic drugs

== ENCOUNTER 2017-03-28 11:18 | Observation (INO) | payer MEDICARE, OTHER ==
[2017-03-28 11:28] VITALS: BMI 23.6
--- NOTE | 2017-03-28 11:58 | ED PDOC ---
Arrival/HPI - General Chief Complaint: Medical Clearance Time Seen by Provider: 03/28/17 11:24 Historian: Patient - History of Present Illness Narrative History of Present Illness (Text): 03/28/17 11:36 A 76 year old male, whose past medical history includes IDDM, hypertension, hyperlipidemia, GERD, and EtOH abuse, was brought by EMS and presents to the emergency department complaining of hypoglycemia prior to arrival. Patient was home with daughter and granddaughter while his was at the drugstore. He passed out due to hypoglycemia and an ambulance was called. Patient notes that he took his insulin medication and Metformin. Patient also mentions he did not eat enough food and has not been checking on his blood sugar regularly. Patient denies fever, chills, nausea, vomiting, diarrhea, abdominal pain, chest pain, urinary symtpoms, cough, headache, dizziness, shortness of breath, or any other complaints. PMD: Dr. Rivas Time/Duration: Prior to Arrival Symptom Onset: Sudden Activities at Onset: Rest, Light Context: Home Past Medical History - Provider Review Nursing Documentation Reviewed: Yes - Infectious Disease Hx of Infectious Diseases: None - Cardiac Hx Hypertension: Yes - Pulmonary Hx Respiratory Disorders: No - Neurological HX Cerebrovascular Accident: No - HEENT Hx HEENT Disorder: Yes (eyeglasses) - Renal Other/Comment: kidney insuff - Endocrine/Metabolic Hx Diabetes Mellitus Type 1: Yes - Hematological/Oncological Hx Cancer: Yes (prostate ca finished radiation 02/07/17) - Integumentary Hx Dermatological Disorder: No - Musculoskeletal/Rheumatological Hx Falls: Yes (in the past denies recent falls) Hx Unsteady Gait: Yes (cane at home/ walker when out) - Gastrointestinal Hx Gastroesophageal Reflux: Yes - Genitourinary/Gynecological Hx Prostate Problems: Yes (prostate ca) - Psychiatric Hx Emotional Abuse: No Hx Physical Abuse: No Hx Substance Use: No - Surgical History Other/Comment: hernia - Anesthesia Hx Anesthesia Reactions: No Hx Malignant Hyperthermia: No - Suicidal Assessment Feels Threatened In Home Enviroment: No Family/Social History - Physician Review Nursing Documentation Reviewed: Yes Family/Social History: No Known Family HX Smoking Status: Former Smoker Hx Alcohol Use: Yes (stopped 9 wks ago) Hx Substance Use: No Allergies/Home Meds Allergies/Adverse Reactions: Allergies No Known Allergies Allergy (Verified 03/28/17 11:36) Home Medications: Home Meds Medication Instructions Recorded Confirmed Gabapentin [Neurontin] 300 mg PO HS 02/16/17 03/28/17 Review of Systems - Physician Review All systems were reviewed & negative as marked: Yes - Review of Systems Constitutional: absent: Fevers, Night Sweats Respiratory: absent: SOB, Cough Cardiovascular: absent: Chest Pain Gastrointestinal: absent: Abdominal Pain, Diarrhea, Nausea, Vomiting Genitourinary Male: absent: Urinary Output Changes Neurological: absent: Headache, Dizziness Endocrine: Other (hypoglycemia) Physical Exam Vital Signs Reviewed: Yes Vital Signs Temp Pulse Resp BP Pulse Ox 03/28/17 16:53 183/81 H 03/28/17 16:52 79 182/78 H 03/28/17 16:31 59 L 18 182/76 H 97 03/28/17 16:16 59 L 18 164/73 H 99 03/28/17 15:14 70 18 168/74 H 99 03/28/17 13:30 68 18 174/79 H 99 03/28/17 12:24 65 18 185/86 H 99 03/28/17 11:28 98.2 F 60 18 190/91 H 99 Temperature: Afebrile Blood Pressure: Hypertensive Pulse: Regular Respiratory Rate: Normal Appearance: Positive for: Well-Appearing Pain Distress: None Mental Status: Positive for: Alert and Oriented X 3 Finger Stick Blood Glucose: 132 - Systems Exam Head: Present: Atraumatic, Normocephalic Pupils: Present: PERRL Extroacular Muscles: Present: EOMI Conjunctiva: Present: Normal Mouth: Present: Moist Mucous Membranes Neck: Present: Normal Range of Motion Respiratory/Chest: Present: Clear to Auscultation, Good Air Exchange. No: Respiratory Distress, Accessory Muscle Use Cardiovascular: Present: Regular Rate and Rhythm, Normal S1, S2. No: Murmurs Abdomen: Present: Normal Bowel Sounds. No: Tenderness, Distention, Peritoneal Signs Back: Present: Normal Inspection Upper Extremity: Present: Normal Inspection. No: Cyanosis, Edema Lower Extremity: Present: Normal Inspection. No: Edema Neurological: Present: GCS=15, CN II-XII Intact, Speech Normal Skin: Present: Warm, Dry, Normal Color. No: Rashes Psychiatric: Present: Alert, Oriented x 3, Normal Insight, Normal Concentration Medical Decision Making ED Course and Treatment: 03/28/17 12:00 Impression: 76 year old male with hypoglycemia. Normal physical exam. Plan: -- EKG -- Chest X-ray --Labs --Urinalysis -- Reassess and disposition Prior Visits: Notes and results from previous visits were reviewed. Patient was last seen in the emergency department on 02/16/2017 complaining to the ED for high blood glucose. Patient was admitted. Progress Notes: 03/28/2017 12;00 EKG: Ordered, reviewed, and independently interpreted the EKG. Rate : 57 BPM Rhythm : Bradycardia Interpretation : Normal access, normal intervals. Comparison : 02/16/2017 - EKG Interpretation Interpreted by ED Physician: Yes (NSR, rate 74, no ST changes) Type: 12 lead EKG. 03/28/17 13:00 Chest X-Ray FINDINGS: LUNGS: No active pulmonary disease. PLEURA: No significant pleural effusion identified, no pneumothorax apparent. CARDIOVASCULAR: Normal. OSSEOUS STRUCTURES: No significant abnormalities. VISUALIZED UPPER ABDOMEN: Normal. OTHER FINDINGS: None. IMPRESSION: No active disease. 03/28/17 14:[address] Robert. Reviewed case. Patient to be admitted for med surg. - Lab Interpretations Lab Results: 03/28/17 11:50 03/28/17 11:50 Lab Results 03/28/17 13:15: Urine Opiates Screen Negative, Urine Methadone Screen Negative, Ur Barbiturates Screen Negative, Ur Phencyclidine Scrn Negative, Ur Amphetamines Screen Negative, U Benzodiazepines Scrn Negative, U Oth Cocaine Metabols Negative, U Cannabinoids Screen Negative 03/28/17 12:30: Urine Color Yellow, Urine Appearance Clear, Urine pH 6.0, Ur Specific Driscoll 1.025, Urine Protein 100 H, Urine Glucose (UA) 100 H, Urine Ketones Negative, Urine Blood Negative, Urine Nitrate Negative, Urine Bilirubin Negative, Urine Urobilinogen 0.2, Ur Leukocyte Esterase Negative, Urine RBC 0 - 2, Urine WBC 0 - 2, Ur Epithelial Cells 0 - 2, Urine Bacteria Neg 03/28/17 11:50: Alcohol, Quantitative < 10 03/28/17 11:50: Sodium 141, Potassium 4.0, Chloride 106, Carbon Dioxide 21, Anion Gap 18, BUN 29 H, Creatinine 1.5 H, Est GFR ( Amer) 55, Est GFR ( Non-Af Amer) 46, Random Glucose 49 L* D, Calcium 9.5, Magnesium 2.4 H, Total Bilirubin 0.4, AST 34, ALT 31, Alkaline Phosphatase 50, Lactate Dehydrogenase 520, Total Creatine Kinase 83, Troponin I < 0.01, Total Protein 7.9, Albumin 4.6 , Globulin 3.4, Albumin/Globulin Ratio 1.4 03/28/17 11:50: WBC 4.4 L, RBC 4.31, Hgb 13.9 L, Hct 40.7 L, MCV 94.4, MCH 32.3 , MCHC 34.2, RDW 12.9, Plt Count 163, MPV 10.7, Gran % 75.7 H, Lymph % (Auto) 15.8 L, Pinal % (Auto) 7.2 H, Eos % (Auto) 1.1 L, Baso % (Auto) 0.2, Gran # 3.35 , Lymph # 0.7 L, Pinal # 0.3, Eos # 0.1, Baso # 0.01 03/28/17 11:24: POC Glucose (mg/dL) 132 H I have reviewed the lab results: Yes - RAD Interpretation Radiology Orders: 03/28/17 11:31 CHEST PORTABLE [RAD] Stat - Medication Orders Current Medication Orders: Amlodipine Besylate (Norvasc) 10 mg PO DAILY [facility] Atorvastatin Calcium (Lipitor) 10 mg PO HS [facility] Gabapentin (Neurontin) 300 mg PO HS [facility] PRN Reason: Protocol Insulin Human Regular (Humulin R Low) 0 units SC [facility] PRN Reason: Protocol Discontinued Medications Amlodipine Besylate (Norvasc) 10 mg PO STAT [facility] Stop: 03/28/17 16:36 Last Admin: 03/28/17 16:53 Dose: 10 mg Dextrose (Dextrose 50% Inj) Confirm Administered Dose 50 ml .ROUTE .STK-MED ONE Stop: 03/28/17 14:21 Last Admin: 03/28/17 15:05 Dose: Dextrose (Dextrose 50% Inj) 50 ml IVP STAT [facility] Stop: 03/28/17 14:23 Last Admin: 03/28/17 14:15 Dose: 50 ml Metoprolol Succinate (Toprol Xl) 25 mg PO STAT [facility] Stop: 03/28/17 16:37 Last Admin: 03/28/17 16:52 Dose: 25 mg - Scribe Statement Asim Salazar Provider Scribe Attestation: All medical record entries made by the Scribe were at my direction and personally dictated by me. I have reviewed the chart and agree that the record accurately reflects my personal performance of the history, physical exam, medical decision making, and the department course for this patient. I have also personally directed, reviewed, and agree with the discharge instructions and disposition. Provider Attestation: Asim Salazar Provider Scribe Attestation: All medical record entries made by the Scribe were at my direction and personally dictated by me. I have reviewed the chart and agree that the record accurately reflects my personal performance of the history, physical exam, medical decision making, and the department course for this patient. I have also personally directed, reviewed, and agree with the discharge instructions and disposition. Disposition/Present on Arrival - Present on Arrival Any Indicators Present on Arrival: Yes History of DVT/PE: No History of Uncontrolled Diabetes: Yes Urinary Catheter: No History of Decub. Ulcer: No History Surgical Site Infection Following: None - Disposition Have Diagnosis and Disposition been Completed?: Yes Diagnosis: Hypoglycemia Disposition: HOSPITALIZED Disposition Time: 14:25 Patient Plan: Admission Condition: STABLE
[2017-03-28 12:07] LABS: BASO # 0.01 K/mm3 (0.0-2.0); BASO % 0.2 % (0.0-3.0); EOS # 0.1 (0.0-0.7); EOS % 1.1 % (1.5-5.0); GRAN # 3.35 (1.4-6.5); GRAN % 75.7 % (50.0-68.0); HEMOGLOBIN 13.9 gm/dL (14.0-18.0); LYMPH # 0.7 (1.2-3.4); LYMPH % 15.8 % (22.0-35.0); MEAN CELL VOLUME 94.4 fL (80.0-105.0); MEAN CORPUSCULAR HEMOGLOBIN 32.3 pg (25.0-35.0); MEAN CORPUSCULAR HGB CONC 34.2 g/dl (31.0-37.0); MEAN PLATELET VOLUME 10.7 fl (7.0-11.0); MONO # 0.3 (0.1-0.6); MONO % 7.2 % (1.0-6.0); PLATELET COUNT 163 10^3/uL (120.0-450.0); RBC 4.31 10^6/uL (3.5-6.1); RED CELL DISTRIBUTION WIDTH 12.9 % (11.5-14.5); WHITE BLOOD COUNT 4.4 10^3/ul (4.5-11.0)
[2017-03-28 12:28] LABS: ALB/GLOB RATIO 1.4 (1.1-1.8); ALBUMIN 4.6 g/dL (3.0-4.8); ALT/SGPT 31 U/L (7-56); AST/SGOT 34 U/L (15-59); BLOOD UREA NITROGEN 29 mg/dL (7-21); CALCIUM 9.5 mg/dL (8.4-10.5); GFR AFRICAN-AMERICAN 55; GFR NON-AFRICAN AMERICAN 46; MAGNESIUM 2.4 mg/dL (1.7-2.2)
[2017-03-28 12:37] LABS: URINE APPEARANCE CLEAR (CLEAR); URINE BILIRUBIN NEGATIVE (NEGATIVE); URINE BLOOD NEGATIVE (NEGATIVE); URINE COLOR YELLOW (YELLOW); URINE GLUCOSE (UA) 100 mg/dL (NEGATIVE); URINE LEUKOCYTE ESTERASE NEGATIVE Leu/uL (NEGATIVE); URINE NITRATE NEGATIVE (NEGATIVE); URINE PROTEIN 100 mg/dL (<30 mg/dL); URINE UROBILINOGEN 0.2 E.U./dL (<1 E.U./dL)
[2017-03-28 12:41] LABS: TROPONIN I < 0.01 ng/mL
[2017-03-28 12:46] LABS: URINE BACTERIA NEG (NEG); URINE EPITHELIAL CELLS 0 - 2 /hpf (0-5); URINE RBC 0 - 2 /hpf (0-2); URINE WBC 0 - 2 /hpf (0-6)
--- NOTE | 2017-03-28 13:17 | RAD ---
HISTORY: r/o infiltrate COMPARISON: 02/16/2017 FINDINGS: LUNGS: No active pulmonary disease. PLEURA: No significant pleural effusion identified, no pneumothorax apparent. CARDIOVASCULAR: Normal. OSSEOUS STRUCTURES: No significant abnormalities. VISUALIZED UPPER ABDOMEN: Normal. OTHER FINDINGS: None. IMPRESSION: No active disease.
[2017-03-28 13:39] LABS: BARBITURATES, UR NEGATIVE (NEGATIVE); BENZODIAZEPINES, UR NEGATIVE (NEGATIVE); OPIATES, UR NEGATIVE (NEGATIVE); PHENCYCLIDINE, UR NEGATIVE (NEGATIVE)
[2017-03-28] MEDS ORDERED: Dextrose 50% SYRINGE Inj (50 ml) ONE (14:20)
[2017-03-28] MEDS ORDERED: Dextrose 50% SYRINGE Inj (50 ml) IVP STA (14:22)
[2017-03-28] MEDS ORDERED: Metoprolol Succinate 25 mg XL Tab PO STA (16:36)
--- NOTE | 2017-03-28 17:25 | CARD ---
APPROVED REPORT EKG Measurement Heart [id number] <Conclusion> Sinus bradycardia Septal infarct, age undetermined Abnormal ECG
[2017-03-28] MEDS: Insulin Reg-LOW-Coverage SC SCH (22:56)
[2017-03-28] MEDS ORDERED: Pneumococcal 23-Valent Vaccine IM ONE (23:48)
[2017-03-29] MEDS: Insulin Reg-LOW-Coverage SC SCH ×2 (07:59→12:07)
[2017-03-29 08:49] VITALS: BP 144/76; PULSE 54; RESP 19; TEMP 97.8; O2SAT 100
--- NOTE | 2017-03-30 06:49 | HP ---
DATE: 03/29/2017 HISTORY OF PRESENT ILLNESS: This is a 76-year-old male who is coming into the hospital with a past medical history of diabetes type 2, hypertension, dyslipidemia, GERD and alcohol use. The patient had hypoglycemic episode. The patient's daughter and granddaughter were at home. Apparently, the patient had passed out, had a syncopal episode because of hypoglycemia. EMS was called for evaluation. The patient was brought to the hospital for further evaluation. He has been taking his metformin and insulin. The patient says he has not been eating enough, feels though, this may be the reason his sugars were low. He was given dextrose and he had improvement of his symptoms. He is kept overnight for further evaluation and management. His fingerstick had improved. The patient has no complaints of any headache or dizziness. No nausea, no vomiting. No dysuria or frequency. All other review of symptoms are within normal limits except what is mentioned. ALLERGIES: NO KNOWN DRUG ALLERGIES. PAST MEDICAL HISTORY: Diabetes type 2, hyperlipidemia, GERD, hypertension and prostate cancer with radiation. HOME MEDICATIONS: Reviewed in the [facility]. He had been on metformin and insulin. SOCIAL HISTORY: He is . He lives with his . He was a heavy smoker, but quit in 1995. FAMILY HISTORY: Noncontributory. PHYSICAL EXAMINATION GENERAL: The patient is lying in bed, comfortable in no acute distress. VITAL SIGNS: He had a temperature of 97.8, pulse 64, blood pressure 144/76, respirations 19 and O2 saturation is 100%. Height is 5 feet 9, he weighs in 160 pounds with a BMI of 23.6. HEENT: Atraumatic and normocephalic. EOMI. PERRLA. Anicteric sclerae. Moist mucosa. No oral lesions or erythema. NECK: No JVD, adenopathy, thyromegaly or bruits. No anterior or posterior cervical adenopathy. CARDIAC: S1 and S2 regular. No murmur, rubs, or gallop. LUNGS: Clear to auscultation bilaterally. No wheezes, rales, or rhonchi. ABDOMEN: Bowel sounds are positive. Soft, nontender and nondistended. No hepatosplenomegaly. LOWER EXTREMITIES: No cyanosis, clubbing, or edema. 2+ pedal pulses. NEUROLOGIC: He is alert awake and oriented x3. He has no facial asymmetry. Tongue is midline. No vulva deviation. Power is 5/5 upper extremity and lower extremity. Sensation is intact. PSYCHIATRIC: He has normal affect. Good insight. No hallucinations. GENITOURINARY: No CVA tenderness. SKIN: No rashes or nodules. LABORATORY DATA: White count 4.4, hemoglobin 13.9 and platelet count 163. Glucose is 49, repeat is 140, 164, 146 and 187. Troponin is 0.01. Urine shows bilirubin is negative, esterase is negative and blood is negative. Toxicology shows amphetamines are negative, benzos are negative, cocaine is negative and alcohol is negative. Urine culture is negative. Chest x-ray done. No Infiltrates on chest x-ray. EKG shows sinus bradycardia, QTc is 439. ASSESSMENT: 1. Dizziness secondary to hypoglycemia. 2. Diabetes type 2. 3. Prostate cancer. 4. Gastroesophageal reflux disease. 5. Hypertension. PLAN: The patient is currently comfortable. He was taken off his metformin and he is going to be continued on his insulin but we will decrease doses. He had improvement of his fingerstick. He will be discharged home to follow up as an outpatient with his primary care doctor, Dr. Rivas. He was given detailed instructions about decreasing the insulin regimen and to rechecking his fingerstick and followup with his primary care doctor. He is going continue his home medications otherwise he was placed on the heart healthy diet. Condition is stable. Activities to increase as tolerated. Jama Cordero MD
== END 2017-03-29 15:30 | disposition home or self-care (01) ==
LOC: ED 11:18 → ERH 14:25 → 5RNO 17:06
PROVIDERS: ADMIT Internal Medicine Nephrology; ATTEND Internal Medicine Nephrology
DX: E11.649 Type 2 diabetes mellitus with hypoglycemia without coma (principal); R42 Dizziness and giddiness; C61 Malignant neoplasm of prostate; K21.9 Gastro-esophageal reflux disease without esophagitis; I10 Essential (primary) hypertension; E78.5 Hyperlipidemia, unspecified; R26.81 Unsteadiness on feet; Z79.4 Long term (current) use of insulin; Z79.899 Other long term (current) drug therapy; Z87.891 Personal history of nicotine dependence; Z92.3 Personal history of irradiation; R00.1 Bradycardia, unspecified
CPT/HCPCS: 71010; 80053; 81001; 82550; 82948; 83615; 83735; 84484; 85025; 87086; 93005; 96374; 99285; G0378; G0480

== ENCOUNTER 2017-04-15 13:16 | Observation (INO) | payer MEDICARE, OTHER ==
[2017-04-15 13:17] VITALS: BMI 23.6
--- NOTE | 2017-04-15 13:37 | ED PDOC ---
Arrival/HPI - General Chief Complaint: Altered Mental Status Time Seen by Provider: 04/15/17 13:26 Historian: Patient, Spouse - History of Present Illness Narrative History of Present Illness (Text): 04/15/17 13:34 A 76 year old male, whose past medical history includes hypertension, diabetes ( on Insulin 3 times a day) and hypercholesterolemia, was brought in to the emergency department by EMS for altered mental status and hypoglycemia. Patient' s reports she found patient shaking and unresponsive at home. She notes similar symptoms about three weeks ago. Patient reports he doesn't remember much of what happened, but remembers taking medications and insulin today. Denies any fever, cough, vomiting or any other complaints at this time. PMD: Dr. Rivas Symptom Onset: Sudden Symptom Course: Unchanged Activities at Onset: Rest Context: Home Past Medical History - Provider Review Nursing Documentation Reviewed: Yes - Infectious Disease Hx of Infectious Diseases: None - Cardiac Hx Cardiac Disorders: Yes Hx Hypertension: Yes - Pulmonary Hx Respiratory Disorders: No - Neurological Hx Neurological Disorder: Yes (SYNCOPE 03-28-17) HX Cerebrovascular Accident: No - HEENT Hx HEENT Disorder: Yes (eyeglasses) - Renal Hx Renal Disorder: Yes Other/Comment: renal insuff - Endocrine/Metabolic Hx Endocrine Disorders: Yes Hx Diabetes Mellitus Type 1: Yes - Hematological/Oncological Hx Blood Disorders: Yes Hx Cancer: Yes (prostate ca finished radiation 02/07/17) - Integumentary Hx Dermatological Disorder: No - Musculoskeletal/Rheumatological Hx Musculoskeletal Disorders: Yes Hx Falls: Yes (in the past denies recent falls) Hx Unsteady Gait: Yes (cane at home/ walker when out) - Gastrointestinal Hx Gastrointestinal Disorders: Yes Hx Gastroesophageal Reflux: Yes - Genitourinary/Gynecological Hx Genitourinary Disorders: Yes Hx Prostate Problems: Yes (prostate ca) - Psychiatric Hx Psychophysiologic Disorder: No Hx Emotional Abuse: No Hx Physical Abuse: No Hx Substance Use: No - Surgical History Other/Comment: hernia - Anesthesia Hx Anesthesia Reactions: No Hx Malignant Hyperthermia: No - Suicidal Assessment Feels Threatened In Home Enviroment: No Family/Social History - Physician Review Nursing Documentation Reviewed: Yes Family/Social History: No Known Family HX Smoking Status: Former Smoker Hx Alcohol Use: No Hx Substance Use: No Allergies/Home Meds Allergies/Adverse Reactions: Allergies No Known Allergies Allergy (Verified 04/15/17 13:24) Home Medications: Home Meds Medication Instructions Recorded Confirmed Unobtainable 04/15/17 04/15/17 Review of Systems - Physician Review All systems were reviewed & negative as marked: Yes - Review of Systems Constitutional: absent: Fevers Respiratory: absent: Cough Gastrointestinal: absent: Vomiting Physical Exam Vital Signs Reviewed: Yes Vital Signs Temp Pulse Resp BP Pulse Ox 04/15/17 16:21 70 18 155/81 H 100 04/15/17 13:24 97.5 F L 74 18 158/73 H 100 Temperature: Afebrile Blood Pressure: Hypertensive Pulse: Regular Respiratory Rate: Normal Appearance: Positive for: Well-Appearing, Non-Toxic, Comfortable Pain Distress: None Mental Status: Positive for: Alert and Oriented X 3 - Systems Exam Head: Present: Atraumatic, Normocephalic Pupils: Present: PERRL Extroacular Muscles: Present: EOMI Conjunctiva: Present: Normal Mouth: Present: Moist Mucous Membranes Neck: Present: Normal Range of Motion Respiratory/Chest: Present: Clear to Auscultation, Good Air Exchange. No: Respiratory Distress, Accessory Muscle Use Cardiovascular: Present: Regular Rate and Rhythm, Normal S1, S2. No: Murmurs Abdomen: Present: Normal Bowel Sounds. No: Tenderness, Distention, Peritoneal Signs Back: Present: Normal Inspection Upper Extremity: Present: Normal Inspection. No: Cyanosis, Edema Lower Extremity: Present: Normal Inspection. No: Edema Neurological: Present: GCS=15, CN II-XII Intact, Speech Normal Skin: Present: Warm, Dry, Normal Color. No: Rashes Psychiatric: Present: Alert, Oriented x 3, Normal Insight, Normal Concentration Medical Decision Making ED Course and Treatment: pt became shaky and had temp drop and bg drop even after po intake and D5 IV disc w Dr Cordero who will admit for refractory hypoglycemia ecg- nsr 68, nl axis , nl int, no acute ischemia - Lab Interpretations Lab Results: 04/15/17 13:35 04/15/17 13:35 Lab Results 04/15/17 15:41: Urine Color Yellow, Urine Appearance Clear, Urine pH 6.0, Ur Specific [place] 1.020, Urine Protein Negative, Urine Glucose (UA) Negative, Urine Ketones Negative, Urine Blood Negative, Urine Nitrate Negative, Urine Bilirubin Negative, Urine Urobilinogen 0.2, Ur Leukocyte Esterase Negative 04/15/17 15:34: POC Glucose (mg/dL) 110 04/15/17 15:12: POC Glucose (mg/dL) 119 H 04/15/17 13:35: Sodium 140, Potassium 3.8, Chloride 105, Carbon Dioxide 22, Anion Gap 17, BUN 26 H, Creatinine 1.6 H, Est GFR ( Amer) 51, Est GFR ( Non-Af Amer) 42, Random Glucose 49 L*, Calcium 10.2, Total Bilirubin 0.5, AST 50 , ALT 55, Alkaline Phosphatase 52, Total Protein 8.0, Albumin 4.8, Globulin 3.2 , Albumin/Globulin Ratio 1.5 04/15/17 13:35: WBC 5.0, RBC 4.53, Hgb 14.4, Hct 42.4, MCV 93.6, MCH 31.8, MCHC 34.0, RDW 12.4, Plt Count 164, MPV 10.6, Gran % 72.8 H, Lymph % (Auto) 18.2 L, [place] % (Auto) 6.4 H, Eos % (Auto) 2.0, Baso % (Auto) 0.6, Gran # 3.63, Lymph # 0.9 L, [place] # 0.3, Eos # 0.1, Baso # 0.03 I have reviewed the lab results: Yes - RAD Interpretation Radiology Orders: 04/15/17 15:36 CHEST PORTABLE [RAD] Stat - Medication Orders Current Medication Orders: Dextrose/Sodium Chloride (Dextrose 5%/0.9% Ns 1000 Ml) 1,000 mls @ 150 mls/hr IV .[id number] Last Admin: 04/15/17 13:40 Dose: 150 mls/hr - Scribe Statement The provider has reviewed the documentation as recorded by the Aydee Hanson Provider Scribe Attestation: All medical record entries made by the Scribe were at my direction and personally dictated by me. I have reviewed the chart and agree that the record accurately reflects my personal performance of the history, physical exam, medical decision making, and the department course for this patient. I have also personally directed, reviewed, and agree with the discharge instructions and disposition. Disposition/Present on Arrival - Present on Arrival Any Indicators Present on Arrival: Yes History of DVT/PE: No History of Uncontrolled Diabetes: Yes Urinary Catheter: No History of Decub. Ulcer: No History Surgical Site Infection Following: None - Disposition Have Diagnosis and Disposition been Completed?: Yes Diagnosis: Hypoglycemia Disposition: HOSPITALIZED Disposition Time: 16:19 Patient Problems: Current Active Problems Problem Status Onset Hypoglycemia Acute Condition: FAIR
[2017-04-15] MEDS: Dextrose 5%/0.9% NS 1,000 ML IV SCH ×2 (13:40→21:50)
[2017-04-15 13:43] LABS: HEMOGLOBIN 14.4 g/dL (14.0-18.0); MEAN CELL VOLUME 93.6 fl (80.0-105.0); MEAN CORPUSCULAR HEMOGLOBIN 31.8 pg (25.0-35.0); RBC 4.53 10^6/uL (3.5-6.1)
[2017-04-15 13:44] LABS: BASO # 0.03 K/mm3 (0.0-2.0); BASO % 0.6 % (0.0-3.0); EOS # 0.1 (0.0-0.7); GRAN # 3.63 (1.4-6.5); GRAN % 72.8 % (50.0-68.0); LYMPH # 0.9 (1.2-3.4); LYMPH % 18.2 % (22.0-35.0); MEAN PLATELET VOLUME 10.6 fl (7.0-11.0); MONO # 0.3 (0.1-0.6); MONO % 6.4 % (1.0-6.0); PLATELET COUNT 164 10^3/uL (120.0-450.0); RED CELL DISTRIBUTION WIDTH 12.4 % (11.5-14.5)
[2017-04-15 13:51] LABS: ALB/GLOB RATIO 1.5 (1.1-1.8); ALBUMIN 4.8 g/dL (3.0-4.8); CALCIUM 10.2 mg/dL (8.4-10.5)
[2017-04-15 16:00] LABS: URINE BILIRUBIN NEGATIVE (NEGATIVE); URINE BLOOD NEGATIVE (NEGATIVE); URINE GLUCOSE (UA) NEGATIVE (NEGATIVE); URINE LEUKOCYTE ESTERASE NEGATIVE Leu/uL (NEGATIVE); URINE NITRATE NEGATIVE (NEGATIVE); URINE PROTEIN NEGATIVE mg/dL (<30 mg/dL); URINE UROBILINOGEN 0.2 E.U./dL (<1 E.U./dL)
[2017-04-15 16:05] LABS: URINE APPEARANCE CLEAR (CLEAR); URINE COLOR YELLOW (YELLOW)
--- NOTE | 2017-04-15 16:11 | RAD ---
HISTORY: hypoglycemia COMPARISON: 03/28/2017. FINDINGS: LUNGS: No active pulmonary disease. PLEURA: No significant pleural effusion identified, no pneumothorax apparent. CARDIOVASCULAR: No radiographic findings to suggest acute or significant cardiovascular disease. OSSEOUS STRUCTURES: No significant abnormalities. VISUALIZED UPPER ABDOMEN: Normal. OTHER FINDINGS: None. IMPRESSION: No significant interval change compared to the prior examination(s).
[2017-04-15] MEDS ORDERED: Dextrose 5%/0.9% NS 1,000 ML IV SCH (22:57)
[2017-04-16 05:57] VITALS: O2SAT 99
--- NOTE | 2017-04-16 07:23 | CP.PCM.HP ---
<Eve Miller - Last Filed: 04/16/17 09:21> History of Present Illness - History of Present Illness History of Present Illness: CC: Unresponsiveness, hypoglycemia Patient is a 76 y/o with pmh of IDDM2, htn, hld, Prostate ca s/p radiation brought in by ambulance secondary to hypoglycemia. Patient states yesterday he checked his glucose, and it was low, he ate a meal, then he checked it again, it was 101, thus he decided to inject about 10 units of insulin. Patient states he doesn't remember what happened afterward. As per ER record, patient's found patient unresponsive and hypoglycemic. Patient's glucose was 49 in the ED, patient was giving D5 NS and diet, however patient was still hypoglycemic, and shivering, patient was admitted with refractory hypoglycemia. Patient was admitted on 03/28 with similar symptoms. Patient states he had appointment to see an jig builder helper, but missed the appointment due to cataract surgery. Patient states he is feeling better, speaking in full sentence. Denies dizziness , lightheadedness, headache, n/v/d, denies abdominal pain, denies dysurea, denies cp or sob. PMH: DDM2, htn, hld, Prostate ca s/p radiation PSH: none Social: patient denies recent alcohol abuse, quit tobacco over a year ago, denies illicit drug use. Lives with his . Present on Admission - Present on Admission Any Indicators Present on Admission: No History of DVT/PE: No History of Uncontrolled Diabetes: Yes Urinary Catheter: No Decubitus Ulcer Present: No History Surgical Site Infection Following: None Review of Systems - Review of Systems All systems: reviewed and no additional remarkable complaints except Review of Systems: 12 point ROS reviewed, all negative except as per HPI. Past Patient History - Infectious Disease Hx of Infectious Diseases: None - Past Medical History & Family History Past Medical History?: Yes - Past Social History Smoking Status: Former Smoker Alcohol: Other (former) Drugs: Denies Home Situation {Lives}: With Family - CARDIAC Hx Cardiac Disorders: Yes Hx Hypertension: Yes - PULMONARY Hx Respiratory Disorders: No - NEUROLOGICAL Hx Neurological Disorder: Yes (SYNCOPE 03-28-17) HX Cerebrovascular Accident: No - HEENT Hx HEENT Problems: Yes (eyeglasses) - RENAL Hx Chronic Kidney Disease: Yes Other/Comment: renal insuff - ENDOCRINE/METABOLIC Hx Endocrine Disorders: Yes Hx Diabetes Mellitus Type 1: Yes - HEMATOLOGICAL/ONCOLOGICAL Hx Blood Disorders: Yes Hx Cancer: Yes (prostate ca finished radiation 02/07/17) - INTEGUMENTARY Hx Dermatological Problems: No - MUSCULOSKELETAL/RHEUMATOLOGICAL Hx Falls: Yes (in the past denies recent falls) - GASTROINTESTINAL Hx Gastrointestinal Disorders: Yes Hx Gastroesophageal Reflux: Yes - GENITOURINARY/GYNECOLOGICAL Hx Genitourinary Disorders: Yes Hx Prostate Problems: Yes (prostate ca) - PSYCHIATRIC Hx Substance Use: No - SURGICAL HISTORY Other/Comment: hernia - ANESTHESIA Hx Anesthesia Reactions: No Hx Malignant Hyperthermia: No Meds Allergies/Adverse Reactions: Allergies Allergy/AdvReac Type Severity Reaction Status Date / Time No Known Allergies Allergy Verified 04/15/17 13:24 Physical Exam - Constitutional Appears: No Acute Distress - Head Exam Head Exam: ATRAUMATIC, NORMAL INSPECTION, NORMOCEPHALIC - Eye Exam Eye Exam: EOMI, Normal appearance, PERRL. absent: Scleral icterus Pupil Exam: NORMAL ACCOMODATION, PERRL - ENT Exam ENT Exam: Mucous Membranes Moist - Neck Exam Neck exam: Positive for: Normal Inspection - Respiratory Exam Respiratory Exam: Clear to Auscultation Bilateral, NORMAL BREATHING PATTERN. absent: Rales, Rhonchi, Wheezes, Respiratory Distress, Stridor - Cardiovascular Exam Cardiovascular Exam: REGULAR RHYTHM, +S1, +S2. absent: Systolic Murmur - GI/Abdominal Exam GI & Abdominal Exam: Normal Bowel Sounds, Soft. absent: Distended, Firm, Guarding, Rigid, Tenderness - Extremities Exam Extremities exam: Positive for: normal inspection. Negative for: pedal edema - Back Exam Back exam: NORMAL INSPECTION - Neurological Exam Neurological exam: Alert, CN II-XII Intact, Oriented x3, Reflexes Normal - Psychiatric Exam Psychiatric exam: Normal Affect, Normal Mood - Skin Skin Exam: Dry, Intact, Warm Results - Vital Signs Recent Vital Signs: Last Vital Signs Temp 98.1 F 04/16/17 05:56 Pulse 63 04/16/17 05:56 Resp 18 04/16/17 05:56 BP 133/71 04/16/17 05:56 Pulse Ox 99 04/16/17 05:56 - Labs Result Diagrams: 04/16/17 08:43 04/16/17 08:43 Labs: Laboratory Results - last 24 hr 04/15/17 04/15/1717 16:51 18:17 22:27 POC Glucose (mg/dL) 162 H 180 H 338 H 04/16/17 02:32 POC Glucose (mg/dL) 172 H Assessment & Plan - Assessment and Plan (Free Text) Assessment: 1) AMS 2nd to hypoglycemia 2) Uncontrolled DM 3) Prostate ca s/p radiation 4) CKD stage 3 5) HTN Plan: Patient was treated with D5 NS, glucose and mental status improved. Patient is also hemodynamically stable. Patient to be discharged. Patient advised on decreasing his pre-meal insulin to 5 units TID, and schedule an appointment with the jig builder helper. Patient will also follow up with his PMD Dr Rivas. Will continue his home meds, with decreased insulin regimens. Diet: Heart healthy diet Patient seen, examined, and case discussed with Dr Cordero. - Date & Time Date: 04/16/17 Time: 07:20 <Jama Cordero S - Last Filed: 04/16/17 19:57> Results - Vital Signs Recent Vital Signs: Last Vital Signs Temp 97.3 F L 04/16/17 16:46 Pulse 68 04/16/17 18:00 Resp 19 04/16/17 16:46 BP 175/97 H 04/16/17 16:46 Pulse Ox 99 04/16/17 05:56 - Labs Result Diagrams: 04/16/17 08:43 04/16/17 08:43 Labs: Laboratory Results - last 24 hr 04/15/17 04/16/17 04/16/17 22:27 02:32 08:43 WBC 3.3 L D RBC 4.39 Hgb 14.1 Hct 41.1 L MCV 93.6 MCH 32.1 MCHC 34.3 RDW 12.5 Plt Count 164 MPV 10.0 Gran % 58.7 Lymph % (Auto) 31.7 [place] % (Auto) 6.0 Eos % (Auto) 3.0 Baso % (Auto) 0.6 Gran # 1.94 Lymph # 1.1 L [place] # 0.2 Eos # 0.1 Baso # 0.02 Sodium Potassium Chloride Carbon Dioxide Anion Gap BUN Creatinine Est GFR ( Amer) Est GFR (Non-Af Amer) POC Glucose (mg/dL) 338 H 172 H Random Glucose Calcium 04/16/17 04/16/1704/16/17 08:43 11:16 16:10 WBC RBC Hgb Hct MCV MCH MCHC RDW Plt Count MPV Gran % Lymph % (Auto) [place] % (Auto) Eos % (Auto) Baso % (Auto) Gran # Lymph # [place] # Eos # Baso # Sodium 139 Potassium 5.0 Chloride 106 Carbon Dioxide 24 Anion Gap 14 BUN 21 Creatinine 1.4 Est GFR ( Amer) 60 Est GFR (Non-Af Amer) 50 POC Glucose (mg/dL) 253 H 62 L Random Glucose 153 H Calcium 9.3 04/16/17 17:37 WBC RBC Hgb Hct MCV MCH MCHC RDW Plt Count MPV Gran % Lymph % (Auto) [place] % (Auto) Eos % (Auto) Baso % (Auto) Gran # Lymph # [place] # Eos # Baso # Sodium Potassium Chloride Carbon Dioxide Anion Gap BUN Creatinine Est GFR ( Amer) Est GFR (Non-Af Amer) POC Glucose (mg/dL) 173 H Random Glucose Calcium Assessment & Plan - Assessment and Plan (Free Text) Plan: Pt seen and examined. Resident note reviewed and agree with it. Insulin decreased. Pt to follow with Endo Consult as out-pt. He also has CKD so there are limits on oral agents. Will f/u with PMD. Saw pt with resident.
[2017-04-16] MEDS: Insulin Reg-LOW-Coverage SC SCH ×3 (08:47→16:16)
[2017-04-16 08:50] LABS: BASO # 0.02 K/mm3 (0.0-2.0); BASO % 0.6 % (0.0-3.0); EOS # 0.1 (0.0-0.7); GRAN # 1.94 (1.4-6.5); GRAN % 58.7 % (50.0-68.0); HEMOGLOBIN 14.1 g/dL (14.0-18.0); LYMPH # 1.1 (1.2-3.4); LYMPH % 31.7 % (22.0-35.0); MEAN CELL VOLUME 93.6 fl (80.0-105.0); MEAN CORPUSCULAR HEMOGLOBIN 32.1 pg (25.0-35.0); MEAN CORPUSCULAR HGB CONC 34.3 g/dl (31.0-37.0); MONO # 0.2 (0.1-0.6); PLATELET COUNT 164 10^3/uL (120.0-450.0); RBC 4.39 10^6/uL (3.5-6.1); RED CELL DISTRIBUTION WIDTH 12.5 % (11.5-14.5); WHITE BLOOD COUNT 3.3 10^3/ul (4.5-11.0)
[2017-04-16 08:54] LABS: CALCIUM 9.3 mg/dL (8.4-10.5)
--- NOTE | 2017-04-16 13:20 | CARD ---
APPROVED REPORT EKG Measurement Heart [id number] <Conclusion> Normal sinus rhythm Anterior infarct, age undetermined Abnormal ECG
[2017-04-16 16:47] VITALS: BP 175/97; RESP 19; TEMP 97.3
[2017-04-16 18:58] VITALS: PULSE 68
== END 2017-04-16 19:00 | disposition home or self-care (01) ==
LOC: ED 13:16 → ERH 16:19 → INTOOBSV 16:19 → ERH 16:54 → 2RSO 18:20
PROVIDERS: ADMIT Internal Medicine Nephrology; ATTEND Internal Medicine Nephrology
DX: E10.649 Type 1 diabetes mellitus with hypoglycemia without coma (principal); E10.65 Type 1 diabetes mellitus with hyperglycemia; I12.9 Hypertensive chronic kidney disease with stage 1 through stage 4 chronic kidney disease, or unspecified chronic kidney disease; N18.3 Chronic kidney disease, stage 3 (moderate); Z85.46 Personal history of malignant neoplasm of prostate; Z92.3 Personal history of irradiation; Z87.891 Personal history of nicotine dependence; E10.22 Type 1 diabetes mellitus with diabetic chronic kidney disease; E78.00 Pure hypercholesterolemia, unspecified; E78.5 Hyperlipidemia, unspecified; K21.9 Gastro-esophageal reflux disease without esophagitis; Z79.4 Long term (current) use of insulin; R26.81 Unsteadiness on feet; R40.2412 Glasgow coma scale score 13-15, at arrival to emergency department
CPT/HCPCS: 36415; 71010; 80048; 80053; 81003; 82948; 85025; 87040; 87086; 93005; 97116; 97162; 99285; G0378; G8978; G8979; G8980; J7042

== ENCOUNTER 2018-01-09 12:51 | Observation (INO) | payer MEDICARE, OTHER ==
--- NOTE | 2018-01-09 12:55 | ED PDOC ---
Arrival/HPI - General Time Seen by Provider: 01/09/18 12:53 Historian: Patient - History of Present Illness Narrative History of Present Illness (Text): 01/09/18 12:55 77 year old male, pmh including hypertension/hyperlipidemia/diabetes, nkda, complaining of elevation of blood sugar at home and chronic lower back pain for over 1 year. As per the family and the patient, patient is a poorly controlled Diabetes patient which he is non-insulin dependent on oral Diabetes medications which he doesn't take it often. Last hgba1c is unknown as he doesn't like to see his pmd. Pt. stated that the blood sugar on fingerstick noted to be over 500 at home last night which he is here for the evaluation with the family. Pt. stated that he feels fine except has chronic lower back pain which been ongoing for over 1 year, no numbness or tingling no rash, no palpitation, no night sweat, no urinary or bowel incontinence/retention, no other medical or psychological complaints. Past Medical History - Provider Review Nursing Documentation Reviewed: Yes - Infectious Disease Hx of Infectious Diseases: None - Cardiac Hx Cardiac Disorders: Yes Hx Hypertension: Yes - Pulmonary Hx Respiratory Disorders: No - Neurological HX Cerebrovascular Accident: No - HEENT Hx HEENT Disorder: Yes (eyeglasses) - Renal Hx Renal Disorder: Yes Other/Comment: renal insuff - Endocrine/Metabolic Hx Diabetes Mellitus Type 1: Yes - Hematological/Oncological Hx Blood Disorders: Yes Hx Cancer: Yes (prostate ca finished radiation 02/07/17) - Integumentary Hx Dermatological Disorder: No - Musculoskeletal/Rheumatological Hx Falls: Yes (in the past denies recent falls) - Gastrointestinal Hx Gastrointestinal Disorders: Yes Hx Gastroesophageal Reflux: Yes - Genitourinary/Gynecological Hx Genitourinary Disorders: Yes Hx Prostate Problems: Yes (prostate ca) - Psychiatric Hx Substance Use: No - Surgical History Other/Comment: hernia - Anesthesia Hx Anesthesia Reactions: No Hx Malignant Hyperthermia: No - Suicidal Assessment Feels Threatened In Home Enviroment: No Family/Social History - Physician Review Nursing Documentation Reviewed: Yes Family/Social History: Unknown Family HX Smoking Status: Former Smoker Hx Alcohol Use: No Hx Substance Use: No Allergies/Home Meds Allergies/Adverse Reactions: Allergies No Known Allergies Allergy (Verified 04/15/17 13:24) Home Medications: Home Meds Medication Instructions Recorded Confirmed Escitalopram Oxalate [Lexapro] 1 tab PO DAILY 01/09/18 01/09/18 Linagliptin [Tradjenta] 1 tab PO DAILY 01/09/18 01/09/18 MetFORMIN ER [Glucophage XR] 1 tab PO DAILY 01/09/18 01/09/18 Metoprolol Succinate XL [Toprol XL] 25 mg PO DAILY 01/09/18 01/09/18 Multivit-Min/Iron/Folic Acid/K 1 tab PO DAILY 01/09/18 01/09/18 [Adults Multivitamin Caplet] Simvastatin [Zocor] 1 tab PO DAILY 01/09/18 01/09/18 amLODIPine [Norvasc] 1 tab PO DAILY 01/09/18 01/09/18 Review of Systems - Review of Systems Constitutional: absent: Fatigue, Fevers ENT: absent: Hearing Changes Respiratory: absent: SOB, Cough Cardiovascular: absent: Chest Pain Gastrointestinal: absent: Abdominal Pain, Diarrhea, Nausea, Vomiting Musculoskeletal: Back Pain. absent: Arthralgias, Neck Pain, Joint Swelling, Myalgias Skin: absent: Rash, Pruritis Psychiatric: absent: Anxiety, Depression, Suicidal Ideation Physical Exam Vital Signs Reviewed: Yes Vital Signs Temp Pulse Resp BP Pulse Ox 01/09/18 16:07 79 18 168/86 H 100 01/09/18 13:42 175/80 H 01/09/18 13:07 97.6 F 86 18 175/92 H 100 Temperature: Afebrile Blood Pressure: Hypertensive Pulse: Regular Respiratory Rate: Normal Appearance: Positive for: Well-Appearing, Non-Toxic, Comfortable Pain Distress: Moderate Mental Status: Positive for: Alert and Oriented X 3 - Systems Exam Head: Present: Atraumatic, Normocephalic Pupils: Present: PERRL Extroacular Muscles: Present: EOMI Conjunctiva: Present: Normal Mouth: Present: Moist Mucous Membranes Neck: Present: Normal Range of Motion Respiratory/Chest: Present: Clear to Auscultation, Good Air Exchange. No: Respiratory Distress, Accessory Muscle Use Cardiovascular: Present: Regular Rate and Rhythm, Normal S1, S2. No: Murmurs Abdomen: No: Tenderness, Distention, Peritoneal Signs, Rebound, Guarding Back: Present: Normal Inspection. No: CVA Tenderness, Midline Tenderness, Paraspinal Tenderness, Pain with Leg Raise, Decubitus Ulcer Upper Extremity: Present: Normal Inspection. No: Cyanosis, Edema Lower Extremity: Present: Normal Inspection. No: Edema Neurological: Present: GCS=15, CN II-XII Intact, Speech Normal, Motor Func Grossly Intact, Gait Normal, Memory Normal Skin: Present: Warm, Dry, Normal Color. No: Rashes Psychiatric: Present: Alert, Oriented x 3, Normal Insight, Normal Concentration Medical Decision Making ED Course and Treatment: 01/09/18 13:41 -labs/ua/vbg -IVF/lidoderm/norvsac -observe and reassess 01/09/18 16:12 -EKG: NSR @ 89 BPM, no ST elevation or depression, no T wave inversion. -Chest xray: no active disease -LS spine xray: Unremarkable radiographs of the lumbar spine. -Labs show no acute findings except Glucose 518, AST 300 from 50/ALT 273 from 55 /chronic creatine 1.6/ BNP 667/ Lactic acidosis 3.8/ETOH 95. IVF and 10 units insulin IV ordered -Urinalysis show no UTI. -Pt. will need admission for IV hydration and correcting the glucose including lactic acidosis/transaminitis/repeat lactiac acidosis. -I discussed with Dr. Buckley, admitting physician, discussed about the case/ labs/radiology result, agreed to admit to his service and he will continue the care. -I discussed with Dr. Molina about the case/labs/radiology result, agreed on the treatment and admission, will put in the admission for observ 01/09/18 17:36 -FS 158 currently, not altered, IVF at maintenance 100cc/hr, case endorsed to Dr. Buckley for further care. - Critical Care Critical Care Minutes: 30 minutes Critical Care Time: Unstable Narrative Critical Care (Text): 01/09/18 15:47 hyperglycemia with lactic acidosis, tranaminitis, alcohol intoxication. - Lab Interpretations Lab Results: 01/09/18 14:15 01/09/18 14:15 Lab Results 01/09/18 15:45: POC Glucose (mg/dL) 425 H* 01/09/18 15:20: Urine Color Yellow, Urine Appearance Clear, Urine pH 6.0, Ur Specific Maury 1.010, Urine Protein Trace H, Urine Glucose (UA) >=1000, Urine Ketones Negative, Urine Blood Trace-intact H, Urine Nitrate Negative, Urine Bilirubin Negative, Urine Urobilinogen 0.2, Ur Leukocyte Esterase Negative, Urine RBC 0 - 2, Urine WBC 0 - 2 01/09/18 14:15: Alcohol, Quantitative 95 H 01/09/18 14:15: WBC 2.4 L* D, RBC 4.35, Hgb 14.4, Hct 40.1 L, MCV 92.2, MCH 33.1 , MCHC 35.9, RDW 12.3, Plt Count 167, Gran % 44.0 L, Lymph % (Auto) 39.4 H, Braxton % (Auto) 8.7 H, Eos % (Auto) 7.1 H, Baso % (Auto) 0.8, Gran # 1.06 L, Lymph # (Auto) 1.0 L, Braxton # (Auto) 0.2, Eos # (Auto) 0.2, Baso # (Auto) 0.02 01/09/18 14:15: Sodium 138, Chloride 97 L, Potassium 4.5, Carbon Dioxide 22, Anion Gap 23 H, BUN 18, Creatinine 1.6 H, Est GFR ( Amer) 51, Est GFR ( Non-Af Amer) 42, Random Glucose 518 H* D, Calcium 9.5, Magnesium 1.7, Total Bilirubin 1.2, AST 300 H, ALT 273 H, Alkaline Phosphatase 92, NT-Pro-B Natriuret Pep 667 H, Total Protein 8.0, Albumin 4.8, Globulin 3.2, Albumin/ Globulin Ratio 1.5 01/09/18 14:15: pO2 85 H, VBG pH 7.24 L, VBG pCO2 59.0, VBG HCO3 25.3, VBG Total CO2 27.1, VBG O2 Sat (Calc) 96.8 H, VBG Base Excess -3.1 L, VBG Potassium 6.0 H, Sodium 132.0, Chloride 96.0 L, Glucose 555 H* D, Lactate 3.8 H, FiO2 21.0 , Venous Blood Potassium 6.0 H 01/09/18 13:09: POC Glucose (mg/dL) 391 H I have reviewed the lab results: Yes - RAD Interpretation Radiology Orders: 01/09/18 13:34 LS SPINE WITH OBL > 18 YRS OLD [RAD] Stat 01/09/18 15:34 CHEST PORTABLE [RAD] Stat LS spine: PROCEDURE: Radiographs of the Lumbar Spine. HISTORY: chronic lower back pain over 1 year COMPARISON: No prior. FINDINGS: BONES: Normal alignment. No listhesis. No fracture. DISC SPACES: Unremarkable. OTHER FINDINGS: None. IMPRESSION: Unremarkable radiographs of the lumbar spine. Chest xray: Base Brander: Radiologist - EKG Interpretation EKG Interpretation (Text): 01/09/18 16:13 EKG: NSR @ 89 BPM, no ST elevation or depression, no T wave inversion. Interpreted by ED Physician: Yes Type: 12 lead EKG - Medication Orders Current Medication Orders: Sodium Chloride (Sodium Chloride 0.9%) 1,000 mls @ 100 mls/hr IV .Q10H NAMRATA Last Admin: 01/09/18 13:45 Dose: 100 mls/hr eMAR Start Stop Document 01/09/18 13:45 EQ (Rec: 01/09/18 13:45 EQ [id number]) Intravenous Solution Start Date 01/09/18 Start Time 13:45 Discontinued Medications Amlodipine Besylate (Norvasc) 10 mg PO STAT STA Stop: 01/09/18 13:36 Last Admin: 01/09/18 13:42 Dose: 10 mg MAR Blood Pressure Document 01/09/18 13:42 EQ (Rec: 01/09/18 13:43 EQ [id number]) Blood Pressure Blood Pressure (100/60-150/90) 175/80 Insulin Human Regular (Humulin R) 10 units IV STAT STA Stop: 01/09/18 15:39 Last Admin: 01/09/18 15:48 Dose: 10 units eMAR Start Stop Document 01/09/18 15:48 LA (Rec: 01/09/18 15:48 LA [id number]) Intravenous Solution Start Date 01/09/18 Start Time 15:48 End Date 01/09/18 End time 15:48 Total Infusion Time 0 MAR Blood Glucose Document 01/09/18 15:48 LA (Rec: 01/09/18 15:48 LA [id number]) Blood Glucose Finger Stick Blood Glucose (70-120) 425 Lidocaine (Lidoderm) 1 ea TD STAT STA Stop: 01/09/18 13:35 Last Admin: 01/09/18 13:43 Dose: 1 ea MAR Transdermal Patch Site Document 01/09/18 13:43 EQ (Rec: 01/09/18 13:44 EQ [id number]) Transdermal Patch Site Transdermal Patch Site Left Lower Back - PA / SERVICE DESK TECHNICIAN / Resident Statement MD/DO has reviewed & agrees with the documentation as recorded. Disposition/Present on Arrival - Present on Arrival Any Indicators Present on Arrival: No History of DVT/PE: No History of Uncontrolled Diabetes: Yes Urinary Catheter: No History of Decub. Ulcer: No History Surgical Site Infection Following: None - Disposition Have Diagnosis and Disposition been Completed?: Yes Diagnosis: Hypertension, Diabetes, Lactic acidosis, Elevated brain natriuretic peptide ( BNP) level, Alcohol intoxication, Transaminitis, Hyperglycemia due to type 2 diabetes mellitus Disposition: HOSPITALIZED Disposition Time: 13:41 Patient Plan: Admission Patient Problems: Current Active Problems Problem Status Onset Alcohol intoxication Acute Diabetes Acute Elevated brain natriuretic peptide (BNP) level Acute Hyperglycemia due to type 2 diabetes mellitus Acute Hyperglycemic hyperosmolar nonketotic coma Acute Hypertension Acute Lactic acidosis Acute Transaminitis Acute Condition: STABLE
[2018-01-09 13:04] VITALS: BMI 20.5
[2018-01-09] MEDS ORDERED: Lidocaine 5% Patch TD STA (13:34)
[2018-01-09] MEDS ORDERED: Oxycodone/Acetaminophen 5/325 mg Tab PO STA (13:34)
[2018-01-09] MEDS ORDERED: Sodium Chloride 0.9% 1,000 ML IV SCH (13:45)
[2018-01-09 14:27] LABS: VENOUS BLOOD GAS BASE EXCESS -3.1 mmol/L (0.0-2.0); VENOUS BLOOD GAS PO2 85 mm/Hg (30-55); VENOUS BLOOD PH 7.24 (7.32-7.43)
[2018-01-09 14:29] LABS: BASO # 0.02 K/mm3 (0.0-2.0); BASO % 0.8 % (0.0-3.0); EOS # 0.2 (0.0-0.7); EOS % 7.1 % (1.5-5.0); GRAN # 1.06 (1.4-6.5); HEMOGLOBIN 14.4 g/dL (14.0-18.0); LYMPH % 39.4 % (22.0-35.0); MEAN CELL VOLUME 92.2 fl (80.0-105.0); MEAN CORPUSCULAR HEMOGLOBIN 33.1 pg (25.0-35.0); MEAN CORPUSCULAR HGB CONC 35.9 g/dl (31.0-37.0); MONO # 0.2 (0.1-0.6); MONO % 8.7 % (1.0-6.0); PLATELET COUNT 167 10^3/uL (120.0-450.0); RBC 4.35 10^6/uL (3.5-6.1); RED CELL DISTRIBUTION WIDTH 12.3 % (11.5-14.5)
[2018-01-09 14:39] LABS: WHITE BLOOD COUNT 2.4 10^3/ul (4.5-11.0)
--- NOTE | 2018-01-09 14:45 | RAD ---
PROCEDURE: Radiographs of the Lumbar Spine. HISTORY: chronic lower back pain over 1 year COMPARISON: No prior. FINDINGS: BONES: Normal alignment. No listhesis. No fracture. DISC SPACES: Unremarkable. OTHER FINDINGS: None. IMPRESSION: Unremarkable radiographs of the lumbar spine.
[2018-01-09 14:59] LABS: ALB/GLOB RATIO 1.5 (1.1-1.8); ALBUMIN 4.8 g/dL (3.0-4.8); CALCIUM 9.5 mg/dL (8.4-10.5)
[2018-01-09] MEDS ORDERED: Insulin Regular 1 UNITS/0.01 ML ML IV STA ×2 (15:04→15:38)
[2018-01-09 17:15] LABS: URINE BILIRUBIN NEGATIVE (NEGATIVE); URINE BLOOD TRACE-INTACT (NEGATIVE); URINE GLUCOSE (UA) >=1000 mg/dL (NEGATIVE); URINE LEUKOCYTE ESTERASE NEGATIVE Leu/uL (NEGATIVE); URINE PROTEIN TRACE mg/dL (<30 mg/dL); URINE UROBILINOGEN 0.2 E.U./dL (<1 E.U./dL)
[2018-01-09 17:16] LABS: URINE APPEARANCE CLEAR (CLEAR); URINE COLOR YELLOW (YELLOW)
[2018-01-09 17:24] LABS: URINE RBC 0 - 2 /hpf (0-2); URINE WBC 0 - 2 /hpf (0-6)
[2018-01-09 20:05] LABS: VENOUS BLOOD GAS BASE EXCESS -1.1 mmol/L (0.0-2.0); VENOUS BLOOD GAS PO2 27 mm/Hg (30-55); VENOUS BLOOD PH 7.33 (7.32-7.43)
[2018-01-09] MEDS: Insulin Reg-MEDIUM-Coverage SC SCH (21:54)
[2018-01-09] MEDS ORDERED: Pneumococcal 23-Valent Vaccine IM ONE (23:49)
[2018-01-10 01:31] LABS: VENOUS BLOOD GAS BASE EXCESS 0.2 mmol/L (0.0-2.0); VENOUS BLOOD GAS PO2 32 mm/Hg (30-55); VENOUS BLOOD PH 7.33 (7.32-7.43)
[2018-01-10 06:25] LABS: VENOUS BLOOD GAS BASE EXCESS 0.9 mmol/L (0.0-2.0); VENOUS BLOOD GAS PO2 30 mm/Hg (30-55); VENOUS BLOOD PH 7.34 (7.32-7.43)
[2018-01-10 06:33] LABS: BASO # 0.01 K/mm3 (0.0-2.0); BASO % 0.4 % (0.0-3.0); EOS # 0.2 (0.0-0.7); EOS % 6.5 % (1.5-5.0); GRAN # 1.15 (1.4-6.5); GRAN % 46.3 % (50.0-68.0); LYMPH # 0.9 (1.2-3.4); LYMPH % 35.9 % (22.0-35.0); MEAN CELL VOLUME 92.1 fl (80.0-105.0); MEAN CORPUSCULAR HEMOGLOBIN 33.2 pg (25.0-35.0); MEAN CORPUSCULAR HGB CONC 36.1 g/dl (31.0-37.0); MEAN PLATELET VOLUME 11.7 fl (7.0-11.0); MONO # 0.3 (0.1-0.6); MONO % 10.9 % (1.0-6.0); RBC 3.4 10^6/uL (3.5-6.1); RED CELL DISTRIBUTION WIDTH 12.4 % (11.5-14.5)
[2018-01-10 06:36] LABS: HEMOGLOBIN 11.3 g/dL (14.0-18.0); WHITE BLOOD COUNT 2.5 10^3/ul (4.5-11.0)
--- NOTE | 2018-01-10 06:55 | CP.PCM.HP ---
<Enid Lema - Last Filed: 01/10/18 12:12> History of Present Illness - History of Present Illness History of Present Illness: H&P for Melissa Lyn PGY2 This is a 77yo male with past medical history NIDDM, HTN, HLD, and medication non-compliance who came into ED for high blood sugar. He reports he was at home and noticed his glucose was in the 500s. Patient reports he has not been taking any of his medications or watching his diet. He is also complaining of lower back pain which has been intermittent for the past couple months. He denies any trauma, heavy lifting, bowel/bladder incontinence or retention. He does complain of burning and numbness in his feet. He also was drinking rum yesterday and reports he had a few shots. His last drink was prior to admission. Patient denies chest pain, shortness of breath, fever/chills, sick contacts, recent travel, dysuria/hematuria, nausea/vomiting or diarrhea. In ED, patient was found to have an elevated lactate and positive for alcohol. His glucose was 500 and decreased to 150s with 10U SC Insulin. Past medical history: NIDDM, HTN, HLD, prostate ca s/p radiation, medication non -compliance Past surgical history: Denies Home meds: As per MAR Allergies: NKDA Social history: Drinks 2 shots or more daily and >1 pint of Bicardi rum ~2x per week, Quit tobacco use >1yr ago, denies drug use. Patient is retired and lives with . Present on Admission - Present on Admission Any Indicators Present on Admission: No Review of Systems - Review of Systems All systems: reviewed and no additional remarkable complaints except Review of Systems: 12 point ROS reviewed as pre HPI Past Patient History - Infectious Disease Hx of Infectious Diseases: None - Past Medical History & Family History Past Medical History?: Yes - Past Social History Smoking Status: Former Smoker - CARDIAC Hx Cardiac Disorders: Yes Hx Hypercholesterolemia: Yes Hx Hypertension: Yes Hx Peripheral Vascular Disease: Yes - PULMONARY Hx Respiratory Disorders: No - NEUROLOGICAL Hx Neurological Disorder: Yes (near syncope) HX Cerebrovascular Accident: No Hx Dizziness: Yes ("for 20 yrs" pt stated) - HEENT Hx HEENT Problems: Yes (eyeglasses) - RENAL Hx Chronic Kidney Disease: Yes Other/Comment: renal insuff - ENDOCRINE/METABOLIC Hx Diabetes Mellitus Type 1: Yes - HEMATOLOGICAL/ONCOLOGICAL Hx Blood Disorders: Yes Hx Anemia: Yes Hx Cancer: Yes (prostate ca finished radiation 02/07/17) Other/Comment: pancytopenia - INTEGUMENTARY Hx Dermatological Problems: No - MUSCULOSKELETAL/RHEUMATOLOGICAL Hx Arthritis: Yes Hx Back Pain: Yes Hx Falls: Yes (past not recently) Hx Unsteady Gait: Yes (cane at home/walker when out) - GASTROINTESTINAL Hx Gastrointestinal Disorders: Yes (hx blood in stools) Hx Gastroesophageal Reflux: Yes - GENITOURINARY/GYNECOLOGICAL Hx Genitourinary Disorders: Yes Hx Prostate Problems: Yes (prostate ca) - PSYCHIATRIC Hx Psychophysiologic Disorder: No Hx Emotional Abuse: No Hx Physical Abuse: No Hx Substance Use: No - SURGICAL HISTORY Other/Comment: hernia - ANESTHESIA Hx Anesthesia Reactions: No Hx Malignant Hyperthermia: No Meds Allergies/Adverse Reactions: Allergies Allergy/AdvReac Type Severity Reaction Status Date / Time No Known Allergies Allergy Verified 04/15/17 13:24 Physical Exam - Constitutional Appears: No Acute Distress - Head Exam Head Exam: ATRAUMATIC, NORMAL INSPECTION, NORMOCEPHALIC - Eye Exam Eye Exam: Normal appearance, PERRL Pupil Exam: NORMAL ACCOMODATION, PERRL - ENT Exam ENT Exam: Mucous Membranes Moist - Respiratory Exam Respiratory Exam: Clear to Auscultation Bilateral, NORMAL BREATHING PATTERN. absent: Rales, Rhonchi, Wheezes - Cardiovascular Exam Cardiovascular Exam: REGULAR RHYTHM, +S1, +S2. absent: Gallop, Rubs, Systolic Murmur - GI/Abdominal Exam GI & Abdominal Exam: Normal Bowel Sounds, Soft, Tenderness (mild epigastric ). absent: Guarding, Rebound, Rigid - Extremities Exam Extremities exam: Positive for: normal inspection. Negative for: calf tenderness, pedal edema Additional comments: small wound on bottom of R 1st toe. - Back Exam Back exam: paraspinal tenderness (in lumbar region ) - Neurological Exam Neurological exam: Alert, CN II-XII Intact, Oriented x3 Additional comments: no tremors noted on exam - Psychiatric Exam Psychiatric exam: Normal Affect, Normal Mood - Skin Skin Exam: Dry, Intact, Normal Color, Warm Results - Vital Signs Recent Vital Signs: Last Vital Signs Temp 98.9 F 01/09/18 23:26 Pulse 116 H 01/09/18 23:26 Resp 19 01/09/18 23:26 BP 153/94 H 01/09/18 23:26 Pulse Ox 99 01/09/18 18:00 - Labs Result Diagrams: 01/10/18 06:00 01/10/18 06:00 Labs: Laboratory Results - last 24 hr 01/09/18 01/09/18 01/09/18 16:59 19:58 21:27 WBC RBC Hgb Hct MCV MCH MCHC RDW Plt Count MPV Gran % Lymph % (Auto) Lander % (Auto) Eos % (Auto) Baso % (Auto) Gran # Lymph # (Auto) Lander # (Auto) Eos # (Auto) Baso # (Auto) pO2 27 L VBG pH 7.33 VBG pCO2 48.0 VBG HCO3 25.3 VBG Total CO2 26.8 VBG O2 Sat (Calc) 56.3 VBG Base Excess -1.1 L VBG Potassium 4.0 Sodium 136.0 Chloride 102.0 Glucose 211 H Lactate 4.3 H* FiO2 21.0 POC Glucose (mg/dL) 158 H 240 H Venous Blood Potassium 4.0 01/10/18 01/10/18 00:58 06:00 WBC 2.5 L* RBC 3.40 L Hgb 11.3 L D Hct 31.3 L MCV 92.1 MCH 33.2 MCHC 36.1 RDW 12.4 Plt Count 98 L MPV 11.7 H Gran % 46.3 L Lymph % (Auto) 35.9 H Lander % (Auto) 10.9 H Eos % (Auto) 6.5 H Baso % (Auto) 0.4 Gran # 1.15 L Lymph # (Auto) 0.9 L Lander # (Auto) 0.3 Eos # (Auto) 0.2 Baso # (Auto) 0.01 pO2 32 VBG pH 7.33 VBG pCO2 51.0 VBG HCO3 26.9 VBG Total CO2 28.5 H VBG O2 Sat (Calc) 66.5 H VBG Base Excess 0.2 VBG Potassium 4.5 Sodium 136.0 Chloride 103.0 Glucose 253 H Lactate 2.4 H FiO2 21.0 POC Glucose (mg/dL) Venous Blood Potassium 4.5 Assessment & Plan - Assessment and Plan (Free Text) Assessment: This is a 77yo male with past medical history NIDDM, HTN, HLD, and medication non-compliance who was admitted for hyperglycemia and back pain. Plan: 1. Hypergylcemia - secondary to DM from medication non-compliance - Diabetic education - Restart home medication: Metformin and Tradjenta - HgbA1c: 7.8 - Patient has small wound on R 1st toe. Recommend to follow up with podiatry as outpatient 2. Alcohol withdrawal - [facility] protocol - Ativan prn - counseled on alcohol cessation - Thiamine, folic acid and multivitamin - Will check UDS 3. Transaminitis (impoving) - most likely secondary to alcohol use - Will continue to monitor - Avoid hepatotoxic agents 4. Lactic acidosis (improved) - most likely non-hypoxic in nature - can be secondary to alcohol, thiamine deficiency, hepatic dysfunction - No evidence of SIRS - Lactic acid trending down from 8 to 2.4 5. Back pain - can be secondary to lumbar strain v. side effects from radiation to pelvis in past - Lumbar XR was normal - Pain control 6. Pancytopenia - Secondary to alcohol use - no overt signs of bleeding- will monitor 7. Hx of HTN - Continue home meds: Norvasc, Toprol 8. Hx of Dyslipidemia - Continue home med: Simvastatin 9. Hx of depression - Continue home med: Lexapro GI ppx: Pepcid DVT ppx: SCDs, patient ambulating Dispo: Patient HD stable. Will monitor overnight and then discharge home in AM. Case seen, discussed and reviewed with Dr. Cordero. Melissa Lema PGY2 - Date & Time Date: 01/10/18 Time: 07:00 <Jama Cordero S - Last Filed: 01/10/18 22:07> Results - Vital Signs Recent Vital Signs: Last Vital Signs Temp 98.8 F 01/10/18 17:19 Pulse 75 01/10/18 17:19 Resp 19 01/10/18 17:19 BP 157/85 H 01/10/18 17:19 Pulse Ox 98 01/10/18 17:19 - Labs Result Diagrams: 01/10/18 06:00 01/10/18 06:00 Labs: Laboratory Results - last 24 hr 01/10/18 01/10/18 01/10/18 00:58 06:00 06:00 WBC 2.5 L* RBC 3.40 L Hgb 11.3 L D Hct 31.3 L MCV 92.1 MCH 33.2 MCHC 36.1 RDW 12.4 Plt Count 98 L MPV 11.7 H Gran % 46.3 L Lymph % (Auto) 35.9 H Lander % (Auto) 10.9 H Eos % (Auto) 6.5 H Baso % (Auto) 0.4 Gran # 1.15 L Lymph # (Auto) 0.9 L Lander # (Auto) 0.3 Eos # (Auto) 0.2 Baso # (Auto) 0.01 pO2 32 VBG pH 7.33 VBG pCO2 51.0 VBG HCO3 26.9 VBG Total CO2 28.5 H VBG O2 Sat (Calc) 66.5 H VBG Base Excess 0.2 VBG Potassium 4.5 Sodium 136.0 140 Chloride 103.0 105 Glucose 253 H Lactate 2.4 H FiO2 21.0 Potassium 4.3 Carbon Dioxide 25 Anion Gap 14 BUN 15 Creatinine 1.3 Est GFR ( Amer) > 60 Est GFR (Non-Af Amer) 54 POC Glucose (mg/dL) Random Glucose 212 H Hemoglobin A1c Calcium 8.1 L Phosphorus 2.3 L Magnesium 1.3 L Total Bilirubin 0.8 AST 160 H D ALT 174 H Alkaline Phosphatase 62 Total Protein 6.0 Albumin 3.3 Globulin 2.6 Albumin/Globulin Ratio 1.3 Prostate Specific Ag Venous Blood Potassium 4.5 01/10/18 01/10/18 01/10/18 06:00 06:00 07:00 WBC RBC Hgb Hct MCV MCH MCHC RDW Plt Count MPV Gran % Lymph % (Auto) Lander % (Auto) Eos % (Auto) Baso % (Auto) Gran # Lymph # (Auto) Lander # (Auto) Eos # (Auto) Baso # (Auto) pO2 30 VBG pH 7.34 VBG pCO2 51.0 VBG HCO3 27.5 VBG Total CO2 29.1 H VBG O2 Sat (Calc) 64.0 VBG Base Excess 0.9 VBG Potassium 4.6 Sodium 136.0 Chloride 105.0 Glucose 236 H Lactate 1.6 FiO2 21.0 Potassium Carbon Dioxide Anion Gap BUN Creatinine Est GFR ( Amer) Est GFR (Non-Af Amer) POC Glucose (mg/dL) Random Glucose Hemoglobin A1c 7.8 H D Calcium Phosphorus Magnesium Total Bilirubin AST ALT Alkaline Phosphatase Total Protein Albumin Globulin Albumin/Globulin Ratio Prostate Specific Ag 1.0 Venous Blood Potassium 4.6 01/10/18 01/10/18 01/10/18 07:36 11:34 15:56 WBC RBC Hgb Hct MCV MCH MCHC RDW Plt Count MPV Gran % Lymph % (Auto) Lander % (Auto) Eos % (Auto) Baso % (Auto) Gran # Lymph # (Auto) Lander # (Auto) Eos # (Auto) Baso # (Auto) pO2 VBG pH VBG pCO2 VBG HCO3 VBG Total CO2 VBG O2 Sat (Calc) VBG Base Excess VBG Potassium Sodium Chloride Glucose Lactate FiO2 Potassium Carbon Dioxide Anion Gap BUN Creatinine Est GFR ( Amer) Est GFR (Non-Af Amer) POC Glucose (mg/dL) 200 H 128 H 351 H Random Glucose Hemoglobin A1c Calcium Phosphorus Magnesium Total Bilirubin AST ALT Alkaline Phosphatase Total Protein Albumin Globulin Albumin/Globulin Ratio Prostate Specific Ag Venous Blood Potassium 01/10/18 01/10/18 21:08 22:02 WBC RBC Hgb Hct MCV MCH MCHC RDW Plt Count MPV Gran % Lymph % (Auto) Lander % (Auto) Eos % (Auto) Baso % (Auto) Gran # Lymph # (Auto) Lander # (Auto) Eos # (Auto) Baso # (Auto) pO2 VBG pH VBG pCO2 VBG HCO3 VBG Total CO2 VBG O2 Sat (Calc) VBG Base Excess VBG Potassium Sodium Chloride Glucose Lactate FiO2 Potassium Carbon Dioxide Anion Gap BUN Creatinine Est GFR ( Amer) Est GFR (Non-Af Amer) POC Glucose (mg/dL) 39 L 142 H Random Glucose Hemoglobin A1c Calcium Phosphorus Magnesium Total Bilirubin AST ALT Alkaline Phosphatase Total Protein Albumin Globulin Albumin/Globulin Ratio Prostate Specific Ag Venous Blood Potassium Assessment & Plan - Assessment and Plan (Free Text) Plan: Pt seen and examined. The note of the dental assistant medical assistant has been reviewed and I agree with it. Labs and medications have been reviewed. Pt has been non- compliant with his meds. Advised to stop drinking EHOH. He has a hx of drinking and noncompliance.
[2018-01-10 07:07] LABS: ALB/GLOB RATIO 1.3 (1.1-1.8); ALBUMIN 3.3 g/dL (3.0-4.8); ALT/SGPT 174 U/L (7-56); AST/SGOT 160 U/L (17-59); BLOOD UREA NITROGEN 15 mg/dL (7-21); CALCIUM 8.1 mg/dL (8.4-10.5); GFR AFRICAN-AMERICAN > 60; GFR NON-AFRICAN AMERICAN 54
[2018-01-10] MEDS ORDERED: Magnesium Sulfate 2 GM in Sodium Chloride 0.9% 100 ML IVPB ONE (07:49)
--- NOTE | 2018-01-10 07:57 | RAD ---
HISTORY: medical clearance COMPARISON: Portable chest 04/15/2017. FINDINGS: LUNGS: No active pulmonary disease. PLEURA: No significant pleural effusion identified, no pneumothorax apparent. CARDIOVASCULAR: Normal. OSSEOUS STRUCTURES: No significant abnormalities. VISUALIZED UPPER ABDOMEN: Normal. OTHER FINDINGS: None. IMPRESSION: No interval acute cardiopulmonary disease appreciated.
[2018-01-10] MEDS ORDERED: Multivitamin Therapeutic Tab PO SCH (08:00)
[2018-01-10] MEDS: Insulin Reg-MEDIUM-Coverage SC SCH ×4 (08:31→22:53)
[2018-01-10] MEDS: Potassium & Sodium Phosphate PO SCH ×2 (09:18→17:20)
[2018-01-10] MEDS: Metoprolol Succinate 25 mg XL Tab PO SCH (09:19)
[2018-01-10] MEDS: Magnesium Oxide 400 mg Tab UD PO SCH ×3 (09:19→17:21)
[2018-01-10] MEDS: Multivitamin With Minerals Tab PO SCH (09:20)
[2018-01-10] MEDS ORDERED: Non Formulary Medication (Simvastatin [Zocor] 1 TAB) PO SCH (10:00)
[2018-01-10] MEDS ORDERED: LINAGLIPTIN PO SCH (10:00)
--- NOTE | 2018-01-10 10:12 | CARD ---
APPROVED REPORT EKG Measurement Heart [id number] <Conclusion> Normal sinus rhythm Prolonged QTc, new Artifact present
[2018-01-10 17:20] VITALS: RESP 19
[2018-01-11 07:25] LABS: ALB/GLOB RATIO 1.3 (1.1-1.8); ALBUMIN 3.7 g/dL (3.0-4.8); ALT/SGPT 150 U/L (7-56); AST/SGOT 129 U/L (17-59); BLOOD UREA NITROGEN 11 mg/dL (7-21); CALCIUM 8.6 mg/dL (8.4-10.5); GFR AFRICAN-AMERICAN > 60; GFR NON-AFRICAN AMERICAN 59
--- NOTE | 2018-01-11 07:48 | CP.PCM.DIS ---
Provider - Provider Date of Admission: 01/09/18 16:12 Attending physician: Jama Cordero MD Primary care physician: Master Rivas MD Time Spent in preparation of Discharge (in minutes): 35 Hospital Course - Lab Results Lab Results: Most Recent Lab Values WBC 2.5 10^3/ul (4.5-11.0) L* 01/10/18 06:00 RBC 3.40 10^6/uL (3.5-6.1) L 01/10/18 06:00 Hgb 11.3 g/dL (14.0-18.0) L D 01/10/18 06:00 Hct 31.3 % (42.0-52.0) L 01/10/18 06:00 MCV 92.1 fl (80.0-105.0) 01/10/18 06:00 MCH 33.2 pg (25.0-35.0) 01/10/18 06:00 MCHC 36.1 g/dl (31.0-37.0) 01/10/18 06:00 RDW 12.4 % (11.5-14.5) 01/10/18 06:00 Plt Count 98 10^3/uL (120.0-450.0) L 01/10/18 06:00 MPV 11.7 fl (7.0-11.0) H 01/10/18 06:00 Gran % 46.3 % (50.0-68.0) L 01/10/18 06:00 Lymph % (Auto) 35.9 % (22.0-35.0) H 01/10/18 06:00 Eddy % (Auto) 10.9 % (1.0-6.0) H 01/10/18 06:00 Eos % (Auto) 6.5 % (1.5-5.0) H 01/10/18 06:00 Baso % (Auto) 0.4 % (0.0-3.0) 01/10/18 06:00 Gran # 1.15 (1.4-6.5) L 01/10/18 06:00 Lymph # (Auto) 0.9 (1.2-3.4) L 01/10/18 06:00 Eddy # (Auto) 0.3 (0.1-0.6) 01/10/18 06:00 Eos # (Auto) 0.2 (0.0-0.7) 01/10/18 06:00 Baso # (Auto) 0.01 K/mm3 (0.0-2.0) 01/10/18 06:00 pO2 30 mm/Hg (30-55) 01/10/18 06:00 VBG pH 7.34 (7.32-7.43) 01/10/18 06:00 VBG pCO2 51.0 (40-60) 01/10/18 06:00 VBG HCO3 27.5 mmol/l (21-28) 01/10/18 06:00 VBG Total CO2 29.1 mmol.L (22-28) H 01/10/18 06:00 VBG O2 Sat (Calc) 64.0 % (40-65) 01/10/18 06:00 VBG Base Excess 0.9 mmol/L (0.0-2.0) 01/10/18 06:00 VBG Potassium 4.6 mmol/L (3.6-5.2) 01/10/18 06:00 Sodium 136.0 mmol/L (132-148) 01/10/18 06:00 Chloride 105.0 mmol/L (98-107) 01/10/18 06:00 Glucose 236 mg/dl (75-110) H 01/10/18 06:00 Lactate 1.6 mmol/L (0.7-2.1) 01/10/18 06:00 FiO2 21.0 % 01/10/18 06:00 Sodium 140 mmol/L (132-148) 01/11/18 05:30 Potassium 3.6 mmol/L (3.6-5.0) 01/11/18 05:30 Chloride 104 mmol/L (98-107) 01/11/18 05:30 Carbon Dioxide 24 mmol/L (21-33) 01/11/18 05:30 Anion Gap 15 (10-20) 01/11/18 05:30 BUN 11 mg/dL (7-21) 01/11/18 05:30 Creatinine 1.2 mg/dl (0.8-1.5) 01/11/18 05:30 Est GFR ( Amer) > 60 01/11/18 05:30 Est GFR (Non-Af Amer) 59 01/11/18 05:30 POC Glucose (mg/dL) 142 mg/dL (65-110) H 01/10/18 22:02 Random Glucose 223 mg/dL (70-110) H 01/11/18 05:30 Hemoglobin A1c 7.8 % (4.2-6.5) H D 01/10/18 06:00 Calcium 8.6 mg/dL (8.4-10.5) 01/11/18 05:30 Phosphorus 2.3 mg/dL (2.5-4.5) L 01/10/18 06:00 Magnesium 1.8 mg/dL (1.7-2.2) 01/11/18 05:30 Total Bilirubin 0.8 mg/dL (0.2-1.3) 01/11/18 05:30 AST 129 U/L (17-59) H 01/11/18 05:30 ALT 150 U/L (7-56) H 01/11/18 05:30 Alkaline Phosphatase 70 U/L (38-126) 01/11/18 05:30 NT-Pro-B Natriuret Pep 667 pg/mL (0-450) H 01/09/18 14:15 Total Protein 6.4 g/dL (5.8-8.3) 01/11/18 05:30 Albumin 3.7 g/dL (3.0-4.8) 01/11/18 05:30 Globulin 2.8 gm/dL 01/11/18 05:30 Albumin/Globulin Ratio 1.3 (1.1-1.8) 01/11/18 05:30 Prostate Specific Ag 1.0 ng/mL (0.00-2.5) 01/10/18 07:00 Venous Blood Potassium 4.6 mmol/L (3.6-5.2) 01/10/18 06:00 Urine Color Yellow (YELLOW) 01/09/18 15:20 Urine Appearance Clear (CLEAR) 01/09/18 15:20 Urine pH 6.0 (4.7-8.0) 01/09/18 15:20 Ur Specific Doole 1.010 (1.005-1.035) 01/09/18 15:20 Urine Protein Trace mg/dL (<30 mg/dL) H 01/09/18 15:20 Urine Glucose (UA) >=1000 mg/dL (NEGATIVE) 01/09/18 15:20 Urine Ketones Negative mg/dL (NEGATIVE) 01/09/18 15:20 Urine Blood Trace-intact (NEGATIVE) H 01/09/18 15:20 Urine Nitrate Negative (NEGATIVE) 01/09/18 15:20 Urine Bilirubin Negative (NEGATIVE) 01/09/18 15:20 Urine Urobilinogen 0.2 E.U./dL (<1 E.U./dL) 01/09/18 15:20 Ur Leukocyte Esterase Negative Sravan/uL (NEGATIVE) 01/09/18 15:20 Urine RBC 0 - 2 /hpf (0-2) 01/09/18 15:20 Urine WBC 0 - 2 /hpf (0-6) 01/09/18 15:20 Alcohol, Quantitative 95 mg/dL (0-10) H 01/09/18 14:15 - Hospital Course Hospital Course: This is a 77yo male with past medical history NIDDM, HTN, HLD, and medication non-compliance who was admitted for hyperglycemia, chronic back pain and alcohol intoxication. Patient was checking his sugars at home and were in 500s. He reports he was not taking his oral medication or watching his diet. HgbA1c was found to be 7.8. veneer matcher came and educated patient on the importance of medication compliance as well as diet. He has a wound on the bottom of his 1st R toe. Patient was encouraged to follow up with podiatry as outpatient as well as ophthalmology for diabetic eye exam. As for the back pain , it is intermittent in the lower lumbar region without numbness or tingling. XR of lumbar spine was negative for abnormalities. Patient had a positive alcohol level on arrival with transaminitis and pancytopenia which have improved. He did not have any signs of withdrawal and was educated on the importance of abstaining from alcohol. Patient will be discharged home and followed up as outpatient. His home medications were refilled and sent to his pharmacy. He was also sent a prescription for Multivitamin, thiamine and folic acid. Discussed discharge plan with patient. Patient verbalized understanding and agrees with discharge plan. - Date & Time of H&P Date of H&P: 01/10/18 Time of H&P: 09:00 Discharge Exam - Head Exam Head Exam: ATRAUMATIC, NORMAL INSPECTION, NORMOCEPHALIC - Eye Exam Eye Exam: Normal appearance, PERRL Pupil Exam: NORMAL ACCOMODATION, PERRL - ENT Exam ENT Exam: Mucous Membranes Moist - Respiratory Exam Respiratory Exam: Clear to PA & Lateral, NORMAL BREATHING PATTERN, UNREMARKABLE. absent: Rhonchi, Wheezes - GI/Abdominal Exam GI & Abdominal Exam: Normal Bowel Sounds, Soft, Unremarkable. absent: Mass, Rebound, Rigid, Tenderness - Extremities Exam Additional comments: R 1st toe wound- no drainage. - Neurological Exam Neurological exam: Alert, CN II-XII Intact, Oriented x3 - Psychiatric Exam Psychiatric exam: Normal Affect, Normal Mood - Skin Skin Exam: Dry, Intact, Warm Discharge Plan - Follow Up Plan Condition: STABLE Disposition: HOME/ ROUTINE Instructions: Diabetes and Diet, Diabetes Type 2 (DC) Additional Instructions: 1. Please take medication at prescribed. Medication was sent to your pharmacy, [facility] in [place]. 2. Follow up with primary doctor in 1 week. 3. Recommend to follow up with a [facility] for diabetic wound on 1st R toe. 4. Recommend to get your eyes checked yearly. Referrals: Master Rivas MD [Primary Care Provider] -
[2018-01-11 08:29] VITALS: BP 166/92; PULSE 63; TEMP 98.1; O2SAT 100
[2018-01-11] MEDS: Insulin Reg-MEDIUM-Coverage SC SCH ×2 (08:37→12:49)
[2018-01-11] MEDS: Magnesium Oxide 400 mg Tab UD PO SCH (09:04)
[2018-01-11] MEDS: Multivitamin With Minerals Tab PO SCH (09:04)
[2018-01-11] MEDS: Potassium & Sodium Phosphate PO SCH (09:04)
[2018-01-11] MEDS: Metoprolol Succinate 25 mg XL Tab PO SCH (09:04)
[2018-01-11] MEDS ORDERED: TRADJENTA 5 MG PO SCH (10:00)
== END 2018-01-11 13:25 | disposition home or self-care (01) ==
LOC: ED 12:51 → ERH 16:12 → 3RSO 17:40
PROVIDERS: ADMIT Internal Medicine Nephrology; ATTEND Internal Medicine Nephrology
DX: E11.01 Type 2 diabetes mellitus with hyperosmolarity with coma (principal); E10.51 Type 1 diabetes mellitus with diabetic peripheral angiopathy without gangrene; I12.9 Hypertensive chronic kidney disease with stage 1 through stage 4 chronic kidney disease, or unspecified chronic kidney disease; N18.9 Chronic kidney disease, unspecified; E10.22 Type 1 diabetes mellitus with diabetic chronic kidney disease; D61.818 Other pancytopenia; E78.00 Pure hypercholesterolemia, unspecified; E78.5 Hyperlipidemia, unspecified; E87.2 Acidosis; F10.129 Alcohol abuse with intoxication, unspecified; G89.29 Other chronic pain; K21.9 Gastro-esophageal reflux disease without esophagitis; Z85.46 Personal history of malignant neoplasm of prostate; Z87.891 Personal history of nicotine dependence; Z91.14 Patient's other noncompliance with medication regimen; Z92.3 Personal history of irradiation
CPT/HCPCS: 36415; 71045; 72110; 80053; 81001; 82803; 82948; 83036; 83735; 83880; 84100; 84153; 85025; 93005; 99285; G0480; J3475; J7040

== ENCOUNTER 2018-05-30 16:36 | Emergency (ER) | payer MEDICARE, OTHER ==
[2018-05-30 16:37] VITALS: BMI 20.5
--- NOTE | 2018-05-30 16:55 | ED PDOC ---
Arrival/HPI - General Time Seen by Provider: 05/30/18 16:53 Historian: Patient - History of Present Illness Narrative History of Present Illness (Text): 05/30/18 16:57 77 year old male, with past medical history NIDDM, HTN, HLD, and alcohol abuse, presents to the Emergency Department via EMS accompanied by for medical evaluation. informs patient was on the couch drinking alcohol when patient began acting different from baseline and had urinary incontinence. worries patient maybe hypoglycemic prompting them to present to the Emergency Department for medical evaluation. Patient admits to drinking today. Patient denies any injury or fall. Patient denies any fever, chills, nausea, vomiting, diarrhea, abdominal pain, chest pain, shortness of breath, neck pain, back pain, headache, dizziness or any other complaints. Patient informs compliance with his diet and medications. PMD: Dr. Rivas Time/Duration: Prior to Arrival Symptom Onset: Gradual Symptom Course: Unchanged Activities at Onset: Light Context: Home Past Medical History - Provider Review Nursing Documentation Reviewed: Yes - Infectious Disease Hx of Infectious Diseases: None - Cardiac Hx Cardiac Disorders: Yes Hx Hypertension: Yes - Pulmonary Hx Respiratory Disorders: No - Neurological HX Cerebrovascular Accident: Yes - HEENT Hx HEENT Disorder: No Hx Cataracts: No Hx Deafness: No Hx Difficulty Chewing: No Hx Epistaxis: No Hx Glaucoma: No Hx Macular Degeneration: No - Renal Hx Renal Disorder: Yes - Endocrine/Metabolic Hx Diabetes Mellitus Type 2: Yes - Hematological/Oncological Hx Blood Transfusions: No - Integumentary Hx Dermatological Disorder: No Hx Basal Cell Carcinoma: No Hx Eczema: No Hx Melanoma: No Hx Psoriasis: No Hx Squamous Cell Carcinoma: No - Musculoskeletal/Rheumatological Hx Arthritis: Yes - Gastrointestinal Hx Gastrointestinal Disorders: No - Genitourinary/Gynecological Hx Genitourinary Disorders: Yes Hx Prostate Problems: Yes - Psychiatric Hx Psychophysiologic Disorder: No Hx Substance Use: No - Surgical History Hx Joint Replacement: Yes - Anesthesia Hx Anesthesia Reactions: No Hx Malignant Hyperthermia: No - Suicidal Assessment Feels Threatened In Home Enviroment: No Family/Social History - Physician Review Nursing Documentation Reviewed: Yes Family/Social History: No Known Family HX Smoking Status: Never Smoked Hx Alcohol Use: No Hx Substance Use: No Allergies/Home Meds Allergies/Adverse Reactions: Allergies No Known Allergies Allergy (Verified 08/13/17 13:24) Review of Systems - Physician Review All systems were reviewed & negative as marked: Yes - Review of Systems Constitutional: absent: Fevers Respiratory: absent: SOB, Cough Cardiovascular: absent: Chest Pain Gastrointestinal: absent: Abdominal Pain, Diarrhea, Nausea, Vomiting Genitourinary Male: Other (Urinary incontinence) Musculoskeletal: absent: Back Pain, Neck Pain Neurological: absent: Headache, Dizziness Psychiatric: Other (Intoxication) Physical Exam Vital Signs Reviewed: Yes Temperature: Afebrile Blood Pressure: Normal Pulse: Regular Respiratory Rate: Normal Appearance: Positive for: Other (Intoxicated; Alcohol on breath) Pain Distress: None Mental Status: Positive for: Alert and Oriented X 3 - Systems Exam Head: Present: Atraumatic, Normocephalic Pupils: Present: PERRL Extroacular Muscles: Present: EOMI Conjunctiva: Present: Normal Mouth: Present: Moist Mucous Membranes Neck: Present: Normal Range of Motion Respiratory/Chest: Present: Clear to Auscultation, Good Air Exchange. No: Respiratory Distress, Accessory Muscle Use Cardiovascular: Present: Regular Rate and Rhythm, Normal S1, S2. No: Murmurs Abdomen: No: Tenderness, Distention, Peritoneal Signs Back: Present: Normal Inspection Upper Extremity: Present: Normal Inspection. No: Cyanosis, Edema Lower Extremity: Present: Normal Inspection. No: Edema Neurological: Present: GCS=15, CN II-XII Intact. No: Speech Normal (Slurred speech secondary to alcohol intoxication) Skin: Present: Warm, Dry, Normal Color. No: Rashes Psychiatric: Present: Alert, Intoxicated Medical Decision Making ED Course and Treatment: 05/30/18 17:07 Impression: 77 year old male presents to the Emergency Department for evaluation of possible alcohol intoxication. Differential Diagnosis included but are not limited to: Alcohol intoxication Plan: -- Labs -- Urinalysis -- Reassess and disposition Prior Visits: Notes and results from previous visits were reviewed. Progress Notes: 05/30/18 19:18 Labs reviewed. Glucose mildly elevated. UA negative. Upon reassessment, patient is able to walk at baseline with assistance, no slurred speech, no tremors. Patient will be discharged home with and son. - Scribe Statement The provider has reviewed the documentation as recorded by the Scribe Addis Zamorano. All medical record entries made by the Scribe were at my direction and personally dictated by me. I have reviewed the chart and agree that the record accurately reflects my personal performance of the history, physical exam, medical decision making, and the department course for this patient. I have also personally directed, reviewed, and agree with the discharge instructions and disposition. Disposition/Present on Arrival - Present on Arrival Any Indicators Present on Arrival: No History of DVT/PE: No History of Uncontrolled Diabetes: No Urinary Catheter: No History Surgical Site Infection Following: None - Disposition Have Diagnosis and Disposition been Completed?: Yes Diagnosis: Alcohol dependence, Diabetes Disposition: HOME/ ROUTINE Disposition Time: 19:17 Patient Plan: Discharge Condition: IMPROVED Discharge Instructions (ExitCare): Alcohol Abuse and Alcoholism (DC), Diabetes and Diet Additional Instructions: JUAN LUIS SANON, thank you for letting us take care of you today. Your provider was Micah Rhodes DO and you were treated for Alcohol Intoxication, Diabetes The emergency medical care you received today was directed at your acute symptoms. If you were prescribed any medication, please fill it and take as directed. It may take several days for your symptoms to resolve. Return to the Emergency Department if your symptoms worsen, do not improve, or if you have any other problems. Please contact your doctor or call one of the physicians/clinics you have been referred to that are listed on the Patient Visit Information form that is included in your discharge packet. Bring any paperwork you were given at discharge with you along with any medications you are taking to your follow up visit. Our treatment cannot replace ongoing medical care by a primary care prov ider outside of the emergency department. Thank you for allowing the [facility] team to be part of your care today. If you had an X-Ray or CT scan: A Radiologist will review the ED reading if any change in treatment is needed we will contact you. If you had a blood, urine, or wound culture: It will take several days for the results, if any change in treatment is needed we will contact you. If you had an STI test: It will take 48 hours for the results. Please call after 1 week if you have not heard back. Referrals: Master Rivas MD [Staff Provider] - Follow up with primary Forms: [employer] (Mong[place]ian), WORK NOTE
[2018-05-30 17:09] VITALS: TEMP 98.2
[2018-05-30 18:17] LABS: BASO # 0.05 K/mm3 (0.0-2.0); BASO % 1.9 % (0.0-3.0); EOS # 0.3 (0.0-0.7); EOS % 10.7 % (1.5-5.0); GRAN # 0.93 (1.4-6.5); GRAN % 34.4 % (50.0-68.0); HEMOGLOBIN 11.1 g/dL (14.0-18.0); LYMPH # 1.2 (1.2-3.4); LYMPH % 44.1 % (22.0-35.0); MEAN CELL VOLUME 98.5 fl (80.0-105.0); MEAN CORPUSCULAR HEMOGLOBIN 33.1 pg (25.0-35.0); MEAN CORPUSCULAR HGB CONC 33.6 g/dl (31.0-37.0); MEAN PLATELET VOLUME 9.9 fl (7.0-11.0); MONO # 0.2 (0.1-0.6); MONO % 8.9 % (1.0-6.0); RBC 3.35 10^6/uL (3.5-6.1); RED CELL DISTRIBUTION WIDTH 13.1 % (11.5-14.5)
[2018-05-30 18:21] LABS: WHITE BLOOD COUNT 2.7 10^3/ul (4.5-11.0)
[2018-05-30 18:29] VITALS: O2SAT 99
[2018-05-30 18:52] LABS: URINE BILIRUBIN NEGATIVE (NEGATIVE); URINE BLOOD NEGATIVE (NEGATIVE); URINE GLUCOSE (UA) NEGATIVE (NEGATIVE); URINE LEUKOCYTE ESTERASE NEGATIVE Leu/uL (NEGATIVE); URINE PROTEIN NEGATIVE mg/dL (<30 mg/dL); URINE UROBILINOGEN 0.2 E.U./dL (<1 E.U./dL)
[2018-05-30 18:52] LABS: BLOOD UREA NITROGEN 19 mg/dL (7-21); CALCIUM 8.8 mg/dL (8.4-10.5); GFR NON-AFRICAN AMERICAN 59
[2018-05-30 18:53] LABS: URINE APPEARANCE CLEAR (CLEAR); URINE COLOR LIGHT YELLOW (YELLOW)
[2018-05-30 21:02] VITALS: BP 137/81; PULSE 79; RESP 17
== END 2018-05-30 20:51 | disposition home or self-care (01) ==
LOC: ED 16:36
DX: F10.20 Alcohol dependence, uncomplicated (principal); Y90.8 Blood alcohol level of 240 mg/100 ml or more; E11.9 Type 2 diabetes mellitus without complications; I10 Essential (primary) hypertension; Z86.73 Personal history of transient ischemic attack (TIA), and cerebral infarction without residual deficits
CPT/HCPCS: 80048; 81003; 82948; 85025; 99283; G0480

== ENCOUNTER 2018-10-18 10:52 | Outpatient (CLI) | payer MEDICARE | END 2018-10-18 10:53 | disposition home or self-care (01) | LOC: LAB 10:52 ==